=== PATIENT | male | born 1930 | race Hispanic/Latino ===

== ENCOUNTER 2017-10-10 11:04 | Inpatient (IN) | payer OTHER, MEDICARE ==
[2017-10-08 15:44] LABS: ABSOLUTE BASOPHIL COUNT 0 /CUMM (0.0-0.2); ABSOLUTE EOSINOPHIL COUNT 0.1 /CUMM (0.0-0.7); ABSOLUTE GRANULOCYTE CT 3.8 /CUMM (1.4-6.5); ABSOLUTE LYMPH COUNT 2.1 /CUMM (1.2-3.4); ABSOLUTE MONOCYTE COUNT 0.7 /CUMM (0.10-0.60); BASOPHIL % 0.3 % (0.0-2.0); EOSINOPHIL % 1.4 % (0-5); GRANULOCYTE % 56.9 % (42.2-75.2); HEMATOCRIT 27.9 % (42-52); MEAN CORPUSCULAR HGB 21.7 PG (27.0-31.0); MEAN CORPUSCULAR VOLUME 70.1 FL (80.0-94.0); MEAN PLATELET VOLUME 10.8 FL (7.4-10.4); PLATELET COUNT 251 /CUMM (130-400); RBC DISTRIBUTION WIDTH 18.1 % (11.5-14.5); RED BLOOD CELL CT 3.98 /CUMM (4.70-6.10); WHITE BLOOD CELL COUNT 6.7 /CUMM (4.8-10.8)
[~2017-10-10] VITALS: Ht 175.3 cm; Wt 100.9 kg
[~2017-10-10 11:04] MED LIST: CIPRO250 M1 PO; CLOPIDOGREL75 MG PO; DIOVAN HCT 12.51 TAB PO; DIOVAN HCT 25 M1 TAB PO; GLIMEPIRIDE4 MG PO; GLUCOPHAGE1000 M1 PO; HYDROCODONE/ACE1 TA1 PO; NAPROSYN375 MG PO; NORVASC 5MG TAB5 MG PO; PRAVASTATIN SOD40 MG PO; PYRIDIUM200 M1 PO; TAMSULOSIN HYD0.4 MG PO; VALSART/HCTZ TAB 160
--- NOTE | 2017-10-10 12:13 | ED GENERAL ADULT ---
History of Present Illness General Chief Complaint: General Adult Stated Complaint: PER RUDOLPH,"DR SAID BRING HIM IN" Source: patient, family Exam Limitations: language barrier Vital Signs & Intake/Output Vital Signs & Intake/Output Vital Signs Date Time Temp Pulse Resp B/P B/P Pulse O2 O2 Flow FiO2 Mean Ox Delivery Rate 10/10 1327 98.2 57 18 144/62 94 Room Air 10/10 1111 96.2 79 18 155/62 96 Room Air Allergies Coded Allergies: NO KNOWN ALLERGIES (10/10/13) Reconcile Medications Amlodipine Besylate 5 MG TABLET 1 TAB PO DAILY BP (Reported) Clopidogrel Bisulfate (Clopidogrel) 75 MG TABLET 1 TAB PO DAILY BLOOD THINNER (Reported) Gabapentin 100 MG CAPSULE 1 CAP PO QPM NERVE PAIN (Reported) Glimepiride 4 MG TABLET 1 TAB PO BID DM (Reported) Metformin HCl (Glucophage) 1,000 MG TABLET 1 TAB PO BID DM (Reported) Metoprolol Succinate 50 MG TAB.ER.24H 1 TAB PO DAILY HEART/BP (Reported) Rosuvastatin Calcium (Crestor) 10 MG TABLET 1 TAB PO DAILY CHOLESTEROL ( Reported) Tamsulosin HCl 0.4 MG CAP.ER.24H 1 CAP PO DAILY PROSTATE (Reported) Valsartan/Hydrochlorothiazide (Valsartan-Hctz 160-25 MG Tab) 160 MG-25 MG TABLET 1 TAB PO DAILY BP (Reported) Triage Note: PT TO ER SENT IN BY PCP FOR ?ROBERTH NEEDING TRANSFUSION. HX OF ANEMIA. PT INTERMITTENTLY SYMPTOMATIC, DIZZINESS/WEAKNESS/FATIGUE. PT APPEARS PALE. DENIES BLOOD IN VOMIT/STOOL. TAKES PLAVIX/ASA DAILY. PT MEXICAN SPEAKERS, DAUGHTERS TO TRANSLATE. Triage Nurses Notes Reviewed? yes Onset: Gradual Duration: week(s):, intermittent Timing: recent history Injury Environment: home Severity: mild, moderate No Modifying Factors: none HPI: 86-year-old male past medical history of hypertension, AAA, hyperlipidemia, insulin-dependent diabetes, coronary artery disease, iron deficiency anemia presents for evaluation of anemia. Patient is Peruvian-speaking daughters translate. Patient reports that he has had intermittent episodes of shortness of breath dizziness and weakness over the past several weeks. He had blood work done with his primary care doctor 2 days ago which showed a DROP IN his hemoglobin. He denies any chest pain, abdominal pain, nausea vomiting diarrhea, bright blood per rectum, melena. He does take aspirin and Plavix for coronary artery disease. No anticoagulants. He had a colonoscopy done 20+ years ago. He has never required a transfusion in the past. (Jj Duarte) Past History Travel History Traveled to [place] past 21 day No Medical History Any Pertinent Medical History? 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 sudden in 70s.). Hx Contributory? No (Jj Duarte) Review of Systems Review of Systems Constitutional: Reports: malaise, weakness. EENTM: Reports: no symptoms. Respiratory: Reports: short of breath. Cardiovascular: Reports: no symptoms. GI: Reports: no symptoms. Genitourinary: Reports: no symptoms. Musculoskeletal: Reports: no symptoms. Skin: Reports: no symptoms. Neurological/Psychological: Reports: see HPI (DIZZY). Hematologic/Endocrine: Reports: no symptoms. Immunologic/Allergic: Reports: no symptoms. All Other Systems: Reviewed and Negative (Jj Duarte) Physical Exam Physical Exam General Appearance: well developed/nourished, no apparent distress, alert, awake Head: atraumatic, normal appearance Eyes: Bilateral: PERRL, EOMI, pale conjunctivae. Ears, Nose, Throat: normal ENT inspection, hearing grossly normal, pale buccal mucosa Neck: normal inspection, supple, full range of motion, no JVD or carotid bruits Respiratory: normal breath sounds, chest non-tender, no respiratory distress, lungs clear Cardiovascular: regular rate/rhythm, normal peripheral pulses Peripheral Pulses: 2+ radial (R), 2+ radial (L) Gastrointestinal: normal bowel sounds, soft, non-tender, no organomegaly Rectal: normal rectal tone, heme positive stool, hemorrhoids (EXTERNAL ), light brown stool heme positive Back: normal inspection, normal range of motion, no vertebral tenderness Extremities: normal inspection, normal range of motion, no edema Neurologic/Psych: no motor/sensory deficits, awake, alert, oriented x 3, normal gait Skin: intact, normal color, warm/dry Lymphatic: no anterior cervical demian Core Measures ACS in differential dx? No CVA/TIA Diagnosis: No Sepsis Present: No Sepsis Focused Exam Completed? No (Lux GREGORIO,Jj) Progress Differential Diagnoses I considered the following diagnoses in my evaluation of the patient: [Iron deficiency anemia, GI bleeding, electrolyte of normality, acute coronary syndrome, orthostatic hypotension] Plan of Care: Orders Procedure Date/time Status Regular Diet 10/10 D Active Patient Data 10/10 1612 Active OXYGEN SETUP (GEN) 10/10 1352 Active Saline Lock 10/10 1352 Active Admit to inpatient 10/10 1352 Active Vital Signs 10/10 135 Active Activity/Ambulation 10/10 135 Active Code Status 10/10 1352 Active MISTAKE 10/10 1127 Active URINALYSIS 10/10 112 Complete TROPONIN LEVEL 10/10 1126 Complete PARTIAL THROMBOPLASTIN TIME 10/10 112 Complete PROTHROMBIN TIME 10/10 112 Complete COMPREHENSIVE METABOLIC PANEL 10/10 112 Complete CBC WITHOUT DIFFERENTIAL 10/10 1126 Complete EKG 10/10 112 Active TYPE & SCREEN (NOT X-MATCH) 10/10 112 Complete Laboratory Tests 10/10/17 1255: Urine Color YEL, Urine Clarity CLEAR, Urine pH 6.0, Ur Specific Organ 1.025, Urine Protein NEG, Urine Ketones NEG, Urine Nitrite NEG, Urine Bilirubin NEG, Urine Urobilinogen 0.2, Ur Leukocyte Esterase NEG, Ur Microscopic EXAM NOT REQUIRED, Urine Hemoglobin NEG, Urine Glucose NEG 10/10/17 1202: Anion Gap 11, Estimated GFR > 60, BUN/Creatinine Ratio 21.0, Glucose 183 H, Calcium 9.7, Total Bilirubin 0.3, AST 16 L, ALT 20 L, Alkaline Phosphatase 74, Troponin I < 0.01, Total Protein 6.3, Albumin 3.7, Globulin 2.6, Albumin/ Globulin Ratio 1.4, PT 13.4 H, INR 1.23 H, APTT 30, CBC w Diff NO MAN DIFF REQ , RBC 3.91 L, MCV 69.9 L, MCH 21.6 L, MCHC 30.8 L, RDW 17.8 H, MPV 10.0, Gran % 61.0, Lymphocytes % 27.0, Monocytes % 10.2 H, Eosinophils % 1.5, Basophils % 0.3, Absolute Granulocytes 3.2, Absolute Lymphocytes 1.4, Absolute Monocytes 0.5, Absolute Eosinophils 0.1, Absolute Basophils 0 Patient seen and evaluated. He was sent in for evaluation of weakness dizziness and shortness of breath. He also had a drop in his hemoglobin. In May 2017 he was running in the 11s his hemoglobin. Bloodwork done 2 days ago showed a hemoglobin of 8.6. Rectal exam is positive for light brown stool heme positive. Patient's family reports he has a history of AAA that has not been followed in several years. We'll check a CTA of the chest and pelvis. Patient denies any chest pain but does report some intermittent shortness of breath during activity. Blood work today shows a similar hemoglobin at 8.6 today. BUN is also mildly elevated at 21. Protonix ordered. Remaining blood work does not show any acute findings. EKG today shows a left bundle branch block that appears to be new. It is not in any of the documented cardiology notes her previous EKGs. According to family patient sees cardiology Dr. Campbell. Spoke with Dr. Whitten from GI. She recommends trending H/H, medicine/cardiology clearance before colonoscopy. No transfusion at this time. CTA is still pending. Patient will require admission to the hospital. Case discussed with Dr. Shetty and he agrees. 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 There is also some evidence of bronchitis. No focal consolidation patient is on have a white count he denies coughing. Patient will be admitted to the hospital for further evaluation and treatment. He will require telemetry monitoring, cardiology consult, serial labs, serial EKGs, GI consult, colonoscopy/endoscopy. Diagnostic Imaging: Viewed by Me: CT Scan. Discussed w/RAD: CT Scan. Radiology Impression: PATIENT: JACKIE ALLISON PRESENT AGE: 86 PATIENT ACCOUNT NO: [id number] : 31 LOCATION: [facility] ORDERING PHYSICIAN: Jj GREGORIO SERVICE DATE: 10/10/175963 EXAM TYPE: CAT - CT ABD & PELVIS ANGIOGRAM; CTA CHEST-AORTIC DISSECTION EXAMINATION: CT CHEST WITH CONTRAST CT ABDOMEN AND PELVIS WITH CONTRAST CLINICAL INFORMATION: Weakness and shortness of breath. History of abdominal aorta aneurysm. Acute drop in hematocrit level. COMPARISON: None. TECHNIQUE: Multidetector CT imaging examination of the chest was performed without intravenous contrast. Then, MDCT imaging was repeated in the arterial phase of intravenous administration of 95 mL of Optiray 320 nonionic contrast material. The post contrast arterial phase images were obtained through the chest, abdomen and pelvis. Multiplanar two- dimensional images were generated and reviewed. Also, axial maximum intensity projection images were reviewed. Note that postprocessed three-dimensional imaging was not performed. DLP: 1461 mGy-cm FINDINGS: CHEST - LUNGS and PLEURA: A punctate nodule in the right upper lobe is likely calcified (image 184, series 4). Small, calcified granulomas are present in the right and left lower lobe, as well. No suspicious lung nodule, mass, consolidation or pleural effusion. Bronchial wall thickening in both lungs is most conspicuous in lower lobes. There are linear, streaky, hazy opacities of atelectasis in lower lobes. No pneumothorax or pleural effusion. CARDIOVASCULAR STRUCTURES: Mild cardiomegaly. Atherosclerotic ectasia of coronary arteries and stent of left anterior descending coronary artery. No pericardial effusion. Pulmonary artery trunk is 3.5 cm diameter. No embolic filling defects within the central vessels. Atherosclerotic calcification of the thoracic aorta without acute intramural hematoma or dissection. The aortic root measures 4 cm diameter and the sinotubular junction measures 3.8 cm diameter. At the level of the right pulmonary artery, the dilated descending aorta measures 4.6 cm AP and 4.9 cm transverse. There is a bovine configuration of the aortic arch. Distal to the takeoff of the left subclavian artery, the aortic arch is 3.1 cm diameter. The proximal and distal descending aorta measure 3.2 cm and 3 cm short axis diameter , respectively. MEDIASTINUM: No mediastinal mass. The esophagus is unremarkable. Thyroid gland is slightly heterogeneous. No pneumomediastinum. LYMPHATICS: No pathologic sized axillary, hilar or mediastinal lymph nodes. CHEST WALL/BONES: No aggressive osseous lesions in the thorax. Thoracic vertebra have well preserved height and alignment. ABDOMEN AND PELVIS - HEPATOBILIARY: Liver has normal size, contour and attenuation. Cholelithiasis. No intrahepatic or extrahepatic bile duct dilatation. PANCREAS: Unremarkable. SPLEEN: Unremarkable. ADRENAL GLANDS: Unremarkable. KIDNEYS, URETERS, BLADDER: Multiple bilateral renal cortical cysts, largest on the left measuring up to 4.7 cm maximum dimension and largest on the right measuring up to 4.1 cm maximum dimension. No solid renal mass. No nephrolithiasis or hydroureteronephrosis. Urinary bladder is moderately distended and has normal wall thickness. No bladder calculi. GI TRACT AND PERITONEUM: Stomach is unremarkable. Bowel loops are normal in caliber. No evidence of acute inflammation or obstruction along the gastrointestinal tract. No ascites or pneumoperitoneum. ABDOMINAL WALL: No abdominal wall mass or hernia. There is hyperdense tissue stranding deep to the distal left rectus abdominis muscle, terminating superior to the level of the pubic bone, consistent with acute hemorrhage. This area of mild hemorrhage measures up to 1.4 cm AP. No evidence of active contrast extravasation in this area. The left inferior epigastric artery is unremarkable. VASCULAR: There is atherosclerotic calcification of the abdominal aorta without abdominal aorta aneurysm or dissection. The celiac trunk and its branches are widely patent. Mild atherosclerosis of the SMA without stenosis or occlusion. Also, mild atherosclerosis of renal arteries without significant luminal narrowing. The inferior mesenteric artery is patent. There is atherosclerotic calcification of common, external and internal iliac arteries. Atherosclerotic plaque produces irregular, [id number] stenosis of the internal iliac vessels. The external iliac and visualized femoral arteries are widely patent. No retroperitoneal hematoma. LYMPH NODES: No pathologic sized lymph nodes in the abdomen or pelvis. PELVIC VISCERA: Prostate gland is mildly enlarged; it measures 3.6 cm AP and 4.8 cm transverse. No pelvic free fluid. OSSEOUS STRUCTURES: There appears to be an old compression fracture of the L2 vertebral body with depression of its superior endplate and approximately 35-40% anterior height loss. There is is a bridging osteophyte anterior to L1-L2. Lumbar vertebra have normal alignment. At L5-S1, there is moderate loss of disc height, vacuum disc phenomenon, disc bulge , vertebral osteophytosis and facet osteoarthritis with moderate bilateral foraminal stenosis. No acute fractures are identified within the spine, pelvis or proximal femurs. No aggressive osseous lesions.. IMPRESSION: 1. Atherosclerotic disease of the coronary arteries and aorta. The ascending thoracic aorta is dilated up to 4.9 cm. No acute intramural hematoma or dissection. No evidence of abdominal aortic aneurysm. 2. Bronchial wall thickening in both lungs is most conspicuous in the lower lobes, and there there are scattered linear, hazy opacities of atelectasis. Correlate for signs/ symptoms of active airway inflammation (i.e. bronchitis or asthma). No evidence of pneumonia. 3. Small amount of hyperdense hemorrhage is seen deep to the distal left rectus abdominis muscle. 4. Cholelithiasis. 5. Old compression fracture of the L2 vertebral body. DICTATED BY: Hunter Machado MD DATE/TIME DICTATED:10/10/171501 ADVERTISING INTERN:FRANNY DATE/TIME TRANSCRIBED:1501 CONFIDENTIAL, DO NOT COPY WITHOUT APPROPRIATE AUTHORIZATION. Initial ED EKG: normal sinus rhythm, LBBB, 1ST DEGREE AV BLOCK (Jj Duarte) Departure Departure Disposition: STILL A PATIENT Condition: Stable Clinical Impression Primary Impression: Symptomatic anemia Secondary Impressions: GI bleeding Qualifiers: GI bleed type/associated pathology: unspecified gastrointestinal hemorrhage type Qualified Code: K92.2 - Gastrointestinal hemorrhage, unspecified Left bundle branch block Referrals: Pranay Samaniego MD (PCP/Family) Departure Forms: Customer Survey General Discharge Information Admission Note Spoke With: Chauncey Hou MD Documentation of Exam: Documentation of any treatments & extenuating circumstances including Concerns Regarding Discharge (functional status, medication knowledge or non-compliance, living conditions, etc.) that warrant an admission rather than observation: [ Serial labs, serial EKGs, GI consult, colonoscopy, medication adjustment, cardiology consult, telemetry,] (Jj Duarte) PA/SKIN DIVING TEACHER Co-Sign Statement Statement: ED Attending supervision documentation- x I saw and evaluated the patient. I have also reviewed all the pertinent lab results and diagnostic results. I agree with the findings and the plan of care as documented in the PA's/SKIN DIVING TEACHER's documentation. Dizzy, weak with new LBBB, heme + stool and symptomatic anemia. [] I have reviewed the ED Record and agree with the PA's/SKIN DIVING TEACHER's documentation. [] Additions or exceptions (if any) to the PAs/SKIN DIVING TEACHER's note and plan are summarized below: [] (Antoine Shetty MD) Critical Care Note Critical Care Note Critical Care Time: non-applicable (Jj Duarte) ED Attending Observation Initial Observation Note: I have seen and personally examined JACKIE ALLISON on 10/10/17 at 1244. I agree with the current emergency department documentation. The disposition (admission or discharge) is uncertain at this time, he needs a period of observation for the following reason(s): The ED Nurse caring for this patient has been personally informed as to what the patient is being observed for. (Lxu GREGORIO,Jj)
[2017-10-10 12:31] LABS: ABSOLUTE BASOPHIL COUNT 0 /CUMM (0.0-0.2); ABSOLUTE EOSINOPHIL COUNT 0.1 /CUMM (0.0-0.7); ABSOLUTE GRANULOCYTE CT 3.2 /CUMM (1.4-6.5); ABSOLUTE LYMPH COUNT 1.4 /CUMM (1.2-3.4); ABSOLUTE MONOCYTE COUNT 0.5 /CUMM (0.10-0.60); BASOPHIL % 0.3 % (0.0-2.0); EOSINOPHIL % 1.5 % (0-5); HEMATOCRIT 27.4 % (42-52); MEAN CORPUSCULAR HGB 21.6 PG (27.0-31.0); MEAN CORPUSCULAR HGB CONC 30.8 G/DL (33.0-37.0); MEAN CORPUSCULAR VOLUME 69.9 FL (80.0-94.0); PLATELET COUNT 243 /CUMM (130-400); RBC DISTRIBUTION WIDTH 17.8 % (11.5-14.5); RED BLOOD CELL CT 3.91 /CUMM (4.70-6.10); WHITE BLOOD CELL COUNT 5.3 /CUMM (4.8-10.8)
[2017-10-10 12:33] LABS: PT 13.4 SEC (9.4-12.5); PTT 30 SEC (25-37)
[2017-10-10] MEDS ORDERED: GLIMEPIRIDE4 M1 PO (14:28)
[2017-10-10] MEDS ORDERED: CLOPIDOGREL75 M1 PO (14:28)
[2017-10-10] MEDS ORDERED: AMLODIPINE BESYL5 M1 PO (14:28)
[2017-10-10] MEDS ORDERED: GABAPENTIN100 M2 PO (14:29)
[2017-10-10] MEDS ORDERED: TAMSULOSIN HCL0.4 M1 PO (14:29)
[2017-10-10] MEDS ORDERED: METOPROLOL SUCC50 M2 PO (14:30)
[2017-10-10] MEDS ORDERED: CRESTOR10 M1 PO (14:30)
[2017-10-10] MEDS ORDERED: VALSARTAN-HCTZ1 EAC2 PO (14:30)
--- NOTE | 2017-10-10 15:36 | CT SCAN REPORT ---
EXAMINATION: CT CHEST WITH CONTRAST CT ABDOMEN AND PELVIS WITH CONTRAST CLINICAL INFORMATION: Weakness and shortness of breath. History of abdominal aorta aneurysm. Acute drop in hematocrit level. COMPARISON: None. TECHNIQUE: Multidetector CT imaging examination of the chest was performed without intravenous contrast. Then, MDCT imaging was repeated in the arterial phase of intravenous administration of 95 mL of Optiray 320 nonionic contrast material. The post contrast arterial phase images were obtained through the chest, abdomen and pelvis. Multiplanar two-dimensional images were generated and reviewed. Also, axial maximum intensity projection images were reviewed. Note that postprocessed three-dimensional imaging was not performed. DLP: 1461 mGy-cm FINDINGS: CHEST - LUNGS and PLEURA: A punctate nodule in the right upper lobe is likely calcified (image 184, series 4). Small, calcified granulomas are present in the right and left lower lobe, as well. No suspicious lung nodule, mass, consolidation or pleural effusion. Bronchial wall thickening in both lungs is most conspicuous in lower lobes. There are linear, streaky, hazy opacities of atelectasis in lower lobes. No pneumothorax or pleural effusion. CARDIOVASCULAR STRUCTURES: Mild cardiomegaly. Atherosclerotic ectasia of coronary arteries and stent of left anterior descending coronary artery. No pericardial effusion. Pulmonary artery trunk is 3.5 cm diameter. No embolic filling defects within the central vessels. Atherosclerotic calcification of the thoracic aorta without acute intramural hematoma or dissection. The aortic root measures 4 cm diameter and the sinotubular junction measures 3.8 cm diameter. At the level of the right pulmonary artery, the dilated descending aorta measures 4.6 cm AP and 4.9 cm transverse. There is a bovine configuration of the aortic arch. Distal to the takeoff of the left subclavian artery, the aortic arch is 3.1 cm diameter. The proximal and distal descending aorta measure 3.2 cm and 3 cm short axis diameter, respectively. MEDIASTINUM: No mediastinal mass. The esophagus is unremarkable. Thyroid gland is slightly heterogeneous. No pneumomediastinum. LYMPHATICS: No pathologic sized axillary, hilar or mediastinal lymph nodes. CHEST WALL/BONES: No aggressive osseous lesions in the thorax. Thoracic vertebra have well preserved height and alignment. ABDOMEN AND PELVIS - HEPATOBILIARY: Liver has normal size, contour and attenuation. Cholelithiasis. No intrahepatic or extrahepatic bile duct dilatation. PANCREAS: Unremarkable. SPLEEN: Unremarkable. ADRENAL GLANDS: Unremarkable. KIDNEYS, URETERS, BLADDER: Multiple bilateral renal cortical cysts, largest on the left measuring up to 4.7 cm maximum dimension and largest on the right measuring up to 4.1 cm maximum dimension. No solid renal mass. No nephrolithiasis or hydroureteronephrosis. Urinary bladder is moderately distended and has normal wall thickness. No bladder calculi. GI TRACT AND PERITONEUM: Stomach is unremarkable. Bowel loops are normal in caliber. No evidence of acute inflammation or obstruction along the gastrointestinal tract. No ascites or pneumoperitoneum. ABDOMINAL WALL: No abdominal wall mass or hernia. There is hyperdense tissue stranding deep to the distal left rectus abdominis muscle, terminating superior to the level of the pubic bone, consistent with acute hemorrhage. This area of mild hemorrhage measures up to 1.4 cm AP. No evidence of active contrast extravasation in this area. The left inferior epigastric artery is unremarkable. VASCULAR: There is atherosclerotic calcification of the abdominal aorta without abdominal aorta aneurysm or dissection. The celiac trunk and its branches are widely patent. Mild atherosclerosis of the SMA without stenosis or occlusion. Also, mild atherosclerosis of renal arteries without significant luminal narrowing. The inferior mesenteric artery is patent. There is atherosclerotic calcification of common, external and internal iliac arteries. Atherosclerotic plaque produces irregular, [id number]-[id number]-kvngwush stenosis of the internal iliac vessels. The external iliac and visualized femoral arteries are widely patent. No retroperitoneal hematoma. LYMPH NODES: No pathologic sized lymph nodes in the abdomen or pelvis. PELVIC VISCERA: Prostate gland is mildly enlarged; it measures 3.6 cm AP and 4.8 cm transverse. No pelvic free fluid. OSSEOUS STRUCTURES: There appears to be an old compression fracture of the L2 vertebral body with depression of its superior endplate and approximately 35-40% anterior height loss. There is is a bridging osteophyte anterior to L1-L2. Lumbar vertebra have normal alignment. At L5-S1, there is moderate loss of disc height, vacuum disc phenomenon, disc bulge, vertebral osteophytosis and facet osteoarthritis with moderate bilateral foraminal stenosis. No acute fractures are identified within the spine, pelvis or proximal femurs. No aggressive osseous lesions.. IMPRESSION: 1. Atherosclerotic disease of the coronary arteries and aorta. The ascending thoracic aorta is dilated up to 4.9 cm. No acute intramural hematoma or dissection. No evidence of abdominal aortic aneurysm. 2. Bronchial wall thickening in both lungs is most conspicuous in the lower lobes, and there there are scattered linear, hazy opacities of atelectasis. Correlate for signs/symptoms of active airway inflammation (i.e. bronchitis or asthma). No evidence of pneumonia. 3. Small amount of hyperdense hemorrhage is seen deep to the distal left rectus abdominis muscle. 4. Cholelithiasis. 5. Old compression fracture of the L2 vertebral body.
--- NOTE | 2017-10-10 16:28 | History & Physical ---
Francine Crane 10/10/17 1628: General Information and HPI MD Statement: I have seen and personally examined JACKIE ALLISON and documented this H&P. The patient is a 86 year old M who presented with a patient stated chief complaint of [Sent by PCP for Low H&H]. Source of Information: patient, family, old records Exam Limitations: no limitations History of Present Illness: Mr.Garcia David is an 86 yo man Vietnamese speaker with PMHx. of hypertension, AAA, hyperlipidemia, insulin-dependent diabetes mellitus, iron deficiency anemia , coronary artery disease status post stent on 2003, ballon angioplasty 2005, and another stent at 2016 at [facility] presented to emergency department per his primary care physician request who called him today for the result of blood work done on which shows drop in his H&H. Most history obtained from family who were at bedside translating. Patient saw his primary care physician last for a complain of worsening dizziness, blurry vision over the last 6 days, per family his symptoms is on and off over the last few months but it's getting worse in the last 6 days so they decided to see his primary care physician on . He also complained of shortness of breath on exertion sometimes associated with chest tightness, however he denies any tightness during the encounter. He described dizziness as he feels that he is going to pass out, he also reports that he has some ear ringing, and chronic headache for years, which is pressure in nature. Patient reports 5 pound weight loss over the last 3 months , he denies any active bleeding, no changes in his urinary or bowel habits, he denies black stool.; Of note: Patient seen by his inventory management specialist Dr. Campbell recently (on August )and he was told that he looks stable), per daughter he had stress test and echocardiogram done earlier this year on June with no abnormality detected Allergies/Medications Allergies: Coded Allergies: NO KNOWN ALLERGIES (10/10/13) Home Med list Amlodipine Besylate 5 MG TABLET 1 TAB PO DAILY BP (Reported) Ferrous Sulfate 325 MG (65 MG IRON) TABLET. 325 MG PO BID ANEMIA DO NOT START TAKING THIS MEDICATION UNTIL Thursday10/17/2017 (AFTER THE COLONOSCOPY). Gabapentin 100 MG CAPSULE 1 CAP PO QPM NERVE PAIN (Reported) Glimepiride 4 MG TABLET 1 TAB PO BID DM (Reported) Metformin HCl (Glucophage) 1,000 MG TABLET 1 TAB PO BID DM (Reported) Metoprolol Succinate 50 MG TAB.ER.24H 1 TAB PO DAILY HEART/BP (Reported) Omeprazole 40 MG CAPSULE.DR 1 CAP PO DAILY GASTRIC PROTECTION Peg 3350/Na Sulf,Bicarb,Cl/KCl (Golytely Solution) 236-22.74G SOLN.RECON 1 UNIT PO ONCE COLONOSCOPY PREP Do not eat any solid food after Thursday at midnight. Start colonscopy prep on morning. Please refer to instructions given at hospital. 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 sudden in 70s.). Psychosocial History Smoking Status: Never Smoked ETOH Use: denies use Illicit Drug Use: denies illicit drug use Functional Ability ADLs Independent: dressing, eating, toileting, bathing. Ambulation: independent Review of Systems Review of Systems Constitutional: Reports: no symptoms. EENTM: Reports: blurred vision. Cardiovascular: Reports: no symptoms. Respiratory: Reports: short of breath. GI: Reports: no symptoms. Genitourinary: Reports: no symptoms. Musculoskeletal: Reports: no symptoms. Skin: Reports: no symptoms. Neurological/Psychological: Reports: see HPI. All Other Systems: Reviewed and Negative Exam & Diagnostic Data Last 24 Hrs of Vital Signs/I&O Vital Signs Date Time Temp Pulse Resp B/P B/P Pulse O2 O2 Flow FiO2 Mean Ox Delivery Rate 10/10 1327 98.2 57 18 144/62 94 Room Air 10/10 1111 96.2 79 18 155/62 96 Room Air Intake & Output 10/10 1600 10/10 0800 10/10 0000 Intake Total Output Total Balance Patient 210 lb Weight Weight Reported by Patient Measurement Method Physical Exam General Appearance Alert, Oriented X3, Cooperative, No Acute Distress, looks pale Skin No Rashes, No Breakdown, No Significant Lesion HEENT Atraumatic, PERRLA, EOMI, Mucous Membr. moist/pink, he looks pale Neck Supple, No JVD Lymphatic Axillary nl, Cervical nl Cardiovascular Regular Rate, Normal S1, Normal S2, No Murmurs Lungs Clear to Auscultation, Normal Air Movement Abdomen Normal Bowel Sounds, Soft, No Tenderness Extremities Normal Pulses, +1 bilateral lower extremity edema Vascular Normal Pulses, Pulses Symmetrical Last 24 Hrs of Labs/Sudhakar: Laboratory Tests 10/10/17 1255: Urine Color YEL, Urine Clarity CLEAR, Urine pH 6.0, Ur Specific [place] 1.025, Urine Protein NEG, Urine Ketones NEG, Urine Nitrite NEG, Urine Bilirubin NEG, Urine Urobilinogen 0.2, Ur Leukocyte Esterase NEG, Ur Microscopic EXAM NOT REQUIRED, Urine Hemoglobin NEG, Urine Glucose NEG 10/10/17 1202: Anion Gap 11, Estimated GFR > 60, BUN/Creatinine Ratio 21.0, Glucose 183 H, Calcium 9.7, Total Bilirubin 0.3, AST 16 L, ALT 20 L, Alkaline Phosphatase 74, Troponin I < 0.01, Total Protein 6.3, Albumin 3.7, Globulin 2.6, Albumin/ Globulin Ratio 1.4, PT 13.4 H, INR 1.23 H, APTT 30, CBC w Diff NO MAN DIFF REQ , RBC 3.91 L, MCV 69.9 L, MCH 21.6 L, MCHC 30.8 L, RDW 17.8 H, MPV 10.0, Gran % 61.0, Lymphocytes % 27.0, Monocytes % 10.2 H, Eosinophils % 1.5, Basophils % 0.3, Absolute Granulocytes 3.2, Absolute Lymphocytes 1.4, Absolute Monocytes 0.5, Absolute Eosinophils 0.1, Absolute Basophils 0 Diagnostic Data EKG Results Sinus rhythm, 56, ABC, first-degree AV block, left bundle branch block, QTC 452 Other Results Chest CTA: IMPRESSION: 1. Atherosclerotic disease of the coronary arteries and aorta. The ascending thoracic aorta is dilated up to 4.9 cm. No acute intramural hematoma or dissection. No evidence of abdominal aortic aneurysm. 2. Bronchial wall thickening in both lungs is most conspicuous in the lower lobes, and there there are scattered linear, hazy opacities of atelectasis. Correlate for signs/symptoms of active airway inflammation (i.e. bronchitis or asthma). No evidence of pneumonia. 3. Small amount of hyperdense hemorrhage is seen deep to the distal left rectus abdominis muscle. 4. Cholelithiasis. 5. Old compression fracture of the L2 vertebral body. Abdomen /pelvis CTA: IMPRESSION: 1. Atherosclerotic disease of the coronary arteries and aorta. The ascending thoracic aorta is dilated up to 4.9 cm. No acute intramural hematoma or dissection. No evidence of abdominal aortic aneurysm. 2. Bronchial wall thickening in both lungs is most conspicuous in the lower lobes, and there there are scattered linear, hazy opacities of atelectasis. Correlate for signs/symptoms of active airway inflammation (i.e. bronchitis or asthma). No evidence of pneumonia. 3. Small amount of hyperdense hemorrhage is seen deep to the distal left rectus abdominis muscle. 4. Cholelithiasis. 5. Old compression fracture of the L2 vertebral body. Assessment/Plan Assessment: Mr.Garcia David is an 86 yo man Vietnamese speaker with PMHx. of hypertension, AAA, hyperlipidemia, insulin-dependent diabetes mellitus, iron deficiency anemia , coronary artery disease status post stent on 2003, angiography 1 2005, and another stent at 2016 at [facility] presented to emergency department her his primary care physician request will call them today as he was found to have dropping in his H&H. Admitted to telemetry floor for microcytic anemia and new finding of left bundle branch block. Vitals, examination, labs, and imaging as above Assessment: #New left bundle branch block #Symptomatic microcytic anemia, (iron deficiency anemia) #History of coronary artery disease status post stenting #History of hypertension, hyperlipidemia #History of diabetes #Ascending aortic aneurysm 4.9 cm #Distal deep left rectus abdominis muscle hematoma Plan: * Patient admitted to telemetry floor * He denies any chest pain during my examination, looks comfortable, we'll continue to trend troponin and EKG given that he had shortness of breath with exertion. No sign or symptoms of CHF. * Cardiology consult with Dr. Campbell regarding EKG finding at am * GI consult placed with Dr. Ruiz regarding anemia, guaiac positive, for possible colonoscopy given that the patient has dropped and his H&H and he reports weight loss over the last 3 months, he also looks pale * General surgery consult placed for Dr. Phillips regarding left rectus abdominis muscle hematoma * Will repeat CBC at a.m. unless the patient became hemodynamically unstable order stat CBC * Will hold oral hypoglycemic agent and start the patient on insulin sliding scale * Accu-Chek 3 times a day before meals/at bedtime * Will check TSH, lipid panel, HbA1c * We'll continue his home medication of amlodipine 5 mg 1 tablet daily, Plavix 75 mg daily, aspirin 81 mg daily, Flomax 0.4 mg daily, metoprolol succinate 50 mg daily, rosuvastatin 10 mg daily, valsartan/hydrochlorothiazide 160/25 mg daily (or a substitute if it's not available at our pharmacy) * Heart healthy diet, keep him nothing by mouth after midnight for possible colonoscopy tomorrow DVT prophylaxis Alps Full code As Ranked By This Provider Problem List: 1. Left bundle branch block 2. GI bleeding Qualifiers GI bleed type/associated pathology: unspecified gastrointestinal hemorrhage type Qualified Code: K92.2 - Gastrointestinal hemorrhage, unspecified Core Measures/Misc (03/01) Acute Coronary Syndrome ACS Diagnosis: No Congestive Heart Failure Congestive Heart Failure Diagnosis No Cerebrovascular Accident CVA/TIA Diagnosis: No VTE (View Protocol) VTE Risk Factors Acute Medical Illness No Mechanical VTE Prophylaxis d/t N/A MechProphylax Ordered No VTE Pharm Prophylaxis d/t NA PharmProphylax ordered Sepsis (View protocol) Sepsis Present: No Chauncey Hou MD 10/10/17 2250: Attending MD Review Statement Attending Statement Attending MD Statement: examined this patient, discuss w/resident/PA/ROAD ROLLER OPERATOR HOT MIX, agreed w/resident/PA/ROAD ROLLER OPERATOR HOT MIX, discussed with nursing Attending Assessment/Plan: Mr. Domingo is a 86 y/o male with CAD - s/p stents, hypertension, AAA, hyperlipidemia, insulin-dependent diabetes mellitus, iron deficiency anemia presented for drop in Hb and Hct In the ER, patient was seen. Denied any specific complaints. Vital signs as mentioned above Assessment and Plan 1. Blood loss anemia - IV PPI, GI Consult, ALPS for DVT px. Hold ASA and Plavix.. Hb and Hct dropped to 8 from baseline of 12. Type and screen and Cross match 2. CAD - s/p stent in 2016 - recent stress test within the last 1 year was apparently normal But patient is apparently 325 mg of ASA and plavix 3. ?New LBBB - will need to be verified with previous records - patient's Contracts Law Professor is . If the LBBB is new - then will need a repeat ECHO. Patient does not report and CV symptoms. 4. Hypertension - Hold BP meds for SBP less than 110
[2017-10-10 20:05] VITALS: BP 170/108
[2017-10-10 21:41] VITALS: BP 164/58
[2017-10-10 22:12] VITALS: BP 160/114
[2017-10-10 23:11] VITALS: BP 160/60
[2017-10-11 07:00] VITALS: BP 120/66
--- NOTE | 2017-10-11 07:30 | Cons- General Surgery ---
General Information and HPI Consulting Request Date of Consult: 10/11/17 Requested By: Chauncey Hou MD Reason for Consult: rectus hematoma Source of Information: patient, old records Exam Limitations: language barrier History of Present Illness: 86 y/o male PMHx. of hypertension, AAA, hyperlipidemia, insulin-dependent diabetes mellitus, iron deficiency anemia, coronary artery disease was told to go to the ER yesterday for the evaluation of abnormal labs. He had a drop in his H/H. He had no complaints of weakness SOB or chest pain. He denied any abdominal pain, nuasea vomiting or diarrhea. He does have dizziness. Most history obtained from family and nursing staff. Patient saw his primary care physician last for a complain of worsening dizziness, blurry vision over the last 6 days, per family his symptoms is on and off over the last few months but it's getting worse in the last 6 days so they decided to see his primary care physician on . He also complained of shortness of breath on exertion sometimes associated with chest tightness. He has no chest pain or SOB now. He has no dizziness now but prior to this he described dizziness with standing. He denies any active bleeding, no changes in his urinary or bowel habits, he denies black stool. He denies any trauma to the abdomen. He is currently plavix and ASA at home. Allergies/Medications Allergies: Coded Allergies: NO KNOWN ALLERGIES (10/10/13) Home Med List: Amlodipine Besylate 5 MG TABLET 1 TAB PO DAILY BP (Reported) Clopidogrel Bisulfate (Clopidogrel) 75 MG TABLET 1 TAB PO DAILY BLOOD THINNER (Reported) Gabapentin 100 MG CAPSULE 1 CAP PO QPM NERVE PAIN (Reported) Glimepiride 4 MG TABLET 1 TAB PO BID DM (Reported) Metformin HCl (Glucophage) 1,000 MG TABLET 1 TAB PO BID DM (Reported) Metoprolol Succinate 50 MG TAB.ER.24H 1 TAB PO DAILY HEART/BP (Reported) Rosuvastatin Calcium (Crestor) 10 MG TABLET 1 TAB PO DAILY CHOLESTEROL ( Reported) Tamsulosin HCl 0.4 MG CAP.ER.24H 1 CAP PO DAILY PROSTATE (Reported) Valsartan/Hydrochlorothiazide (Valsartan-Hctz 160-25 MG Tab) 160 MG-25 MG TABLET 1 TAB PO DAILY BP (Reported) Past History Medical History Blood Transfusion Hx: No Neurological: NONE EENT: NONE Cardiovascular: CAD, hypertension, CARDIAC STENTS Respiratory: NONE Gastrointestinal: NONE Hepatic: NONE Renal: nephrolithiasis Musculoskeletal: NONE Psychiatric: NONE Endocrine: diabetes Blood Disorders: anemia Cancer(s): NONE 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 sudden in 70s.). Psychosocial History Where Do You Live? Home Smoking Status: Never Smoked ETOH Use: denies use Illicit Drug Use: denies illicit drug use Functional Ability ADLs Independent: dressing, eating, toileting, bathing. Ambulation: independent Review of Systems Review of Systems: Constitutional: No chills no fever pos weakness HEENT: pos blurred vision on occasion, no throat pain nasal pain CV: denies chest pain edema orthopnea, possible syncopal episode with standing, no peripheral edema Respiratory: No cough hemoptysis, pos shortness of breath with exertion no wheeze GI: No abdominal pain bloating constipation or diarrhea or bloody stools no vomiting Musculoskeletal: No neck pain back pain or joint swelling Skin: No recent acute changes in skin Neurological: pos dizziness -positional, pos weakness no acute mental status changes Hematologic: no history of blood dyscrasia to include PE DVT or bleeding disorder No reported reaction to general anesthetics No recent fevers fluids or infections Exam & Diagnostic Data Vital Signs and I&O Vital Signs Date Time Temp Pulse Resp B/P B/P Pulse O2 O2 Flow FiO2 Mean Ox Delivery Rate 10/11 0700 98.1 68 18 120/66 96 10/10 2311 160/60 10/11 2211 99.2 74 16 160/114 94 10/10 214 85 164/60 10/10 2141 164/58 10/10 2004 99.1 78 18 170/108 94 10/10 1933 98.1 77 18 139/63 93 Room Air 10/10 1327 98.2 57 18 144/62 94 Room Air 10/10 1111 96.2 79 18 155/62 96 Room Air Intake & Output 10/11 0800 10/11 0000 10/10 1600 10/10 0800 10/10 1600 Intake Total 100 100 Output Total 800 Balance 100 -700 Intake, Oral 100 100 Output, Urine 800 Patient 223 lb 210 lb Weight Weight Bed scale Reported by Patient Measurement Method Patient is alert and oriented lying in bed without complaints he feels well and slept through the night. HEENT exam within normal limits Neck supple nontender with active range of motion Chest is clear to auscultation symmetric without rales rhonchi or wheeze Heart is regular rate rhythm without murmurs rubs gallops Abdomen is rounded but soft nontender in all 4 quadrants no signs of external trauma including ecchymosis or hematoma there is no guarding or rebound positive bowel sounds throughout last bowel movement was on the and it was normal for him, 2 days ago Bilateral lower extremities no edema no calf tenderness Physical Exam: Assessment and plan 86-year-old Guatemalan-speaking male presented to the emergency room on request from his primary care physician for routine lab work that showed worsening H&H. She has been symptomatic for dizziness, shortness of breath with exertion and orthostatic images when he is standing. While in the ER he had a CT angiogram of the chest and abdomen which showed a small distal deep left rectus abdominous hematoma. He is on Plavix at home for his coronary disease and prior stent placement back in 2003. He denied any trauma to his abdomen and he denies any symptoms of abdominal pain. He has been eating and drinking without difficulty and his bowel movements have been normal. Symptomatic anemia probably from GI losses as his stool is guaiac positive. Incidental finding on CAT scan of a small rectus abdominis hematoma. Would recommend serial H&H, PPI, hold blood thinner, guiac each stool and strict I's and O's with vital signs every 4 GI evaluation for possible colonoscopy We will continue to follow and repeat abdominal examination if abdominal symptoms occur we will likely repeat the CAT scan Admission Lab Results I reviewed the following labs: Laboratory Tests 10/11 10/10 10/10 0645 1915 1255 Chemistry Sodium Pending Potassium Pending Chloride Pending Carbon Dioxide Pending Anion Gap Pending BUN Pending Creatinine Pending BUN/Creatinine Ratio Pending Hemoglobin A1c Pending Troponin I (<0.11 ng/ml) < 0.01 Triglycerides Pending Cholesterol Pending LDL Cholesterol, Calc Pending HDL Cholesterol Pending Cholesterol/HDL Ratio Pending TSH &T3 &Free T4 Intrp Pending Hematology CBC w Diff Pending WBC Pending RBC Pending Hgb Pending Hct Pending MCV Pending MCH Pending MCHC Pending RDW Pending Plt Count Pending MPV Pending Urines Urine Color (YEL,AMB,STR) YEL Urine Clarity (CLEAR) CLEAR Urine pH (5.0 - 8.0) 6.0 Ur Specific [place] (1.001 - 1.035) 1.025 Urine Protein (NEG,<30 MG/DL) NEG Urine Ketones (NEG) NEG Urine Nitrite (NEG) NEG Urine Bilirubin (NEG) NEG Urine Urobilinogen (0.1 - 1.0 EU/dl) 0.2 Ur Leukocyte Esterase (NEG) NEG Ur Microscopic EXAM NOT REQUIRED Urine Hemoglobin (NEG) NEG Urine Glucose (N MG/DL) NEG 10/10 1202 Chemistry Sodium (137 - 145 mmol/L) 140 Potassium (3.5 - 5.1 mmol/L) 4.3 Chloride (98 - 107 mmol/L) 102 Carbon Dioxide (22 - 30 mmol/L) 27 Anion Gap (5 - 16) 11 BUN (9 - 20 mg/dL) 21 H Creatinine (0.7 - 1.2 mg/dL) 1.0 Estimated GFR (>60 ml/min) > 60 BUN/Creatinine Ratio (7 - 25 %) 21.0 Glucose (65 - 99 mg/dL) 183 H Calcium (8.4 - 10.2 mg/dL) 9.7 Total Bilirubin (0.2 - 1.3 mg/dL) 0.3 AST (17 - 59 U/L) 16 L ALT (21 - 72 U/L) 20 L Alkaline Phosphatase (< 127 U/L) 74 Troponin I (<0.11 ng/ml) < 0.01 Total Protein (6.3 - 8.2 g/dL) 6.3 Albumin (3.5 - 5.0 g/dL) 3.7 Globulin (1.9 - 4.2 gm/dL) 2.6 Albumin/Globulin Ratio (1.1 - 2.2 %) 1.4 Coagulation PT (9.4 - 12.5 SEC) 13.4 H INR (0.90 - 1.17) 1.23 H APTT (25 - 37 SEC) 30 Hematology CBC w Diff NO MAN DIFF REQ WBC (4.8 - 10.8 /CUMM) 5.3 RBC (4.70 - 6.10 /CUMM) 3.91 L Hgb (14.0 - 18.0 G/DL) 8.4 L Hct (42 - 52 %) 27.4 L MCV (80.0 - 94.0 FL) 69.9 L MCH (27.0 - 31.0 PG) 21.6 L MCHC (33.0 - 37.0 G/DL) 30.8 L RDW (11.5 - 14.5 %) 17.8 H Plt Count (130 - 400 /CUMM) 243 MPV (7.4 - 10.4 FL) 10.0 Gran % (42.2 - 75.2 %) 61.0 Lymphocytes % (20.5 - 51.1 %) 27.0 Monocytes % (1.7 - 9.3 %) 10.2 H Eosinophils % (0 - 5 %) 1.5 Basophils % (0.0 - 2.0 %) 0.3 Absolute Granulocytes (1.4 - 6.5 /CUMM) 3.2 Absolute Lymphocytes (1.2 - 3.4 /CUMM) 1.4 Absolute Monocytes (0.10 - 0.60 /CUMM) 0.5 Absolute Eosinophils (0.0 - 0.7 /CUMM) 0.1 Absolute Basophils (0.0 - 0.2 /CUMM) 0 CT IMPRESSION: 1. Atherosclerotic disease of the coronary arteries and aorta. The ascending thoracic aorta is dilated up to 4.9 cm. No acute intramural hematoma or dissection. No evidence of abdominal aortic aneurysm. 2. Bronchial wall thickening in both lungs is most conspicuous in the lower lobes, and there there are scattered linear, hazy opacities of atelectasis. Correlate for signs/symptoms of active airway inflammation (i.e. bronchitis or asthma). No evidence of pneumonia. 3. Small amount of hyperdense hemorrhage is seen deep to the distal left rectus abdominis muscle. 4. Cholelithiasis. 5. Old compression fracture of the L2 vertebral body. Assessment/Plan Assessment/Plan Symptomatic anemia most likely from GI loss Consult Acknowledgment - Thank you for your consult request.
[2017-10-11 07:50] LABS: ABSOLUTE BASOPHIL COUNT 0 /CUMM (0.0-0.2); ABSOLUTE EOSINOPHIL COUNT 0.1 /CUMM (0.0-0.7); ABSOLUTE GRANULOCYTE CT 3.5 /CUMM (1.4-6.5); ABSOLUTE LYMPH COUNT 1.7 /CUMM (1.2-3.4); ABSOLUTE MONOCYTE COUNT 0.7 /CUMM (0.10-0.60); BASOPHIL % 0.3 % (0.0-2.0); EOSINOPHIL % 2.5 % (0-5); GRANULOCYTE % 57.4 % (42.2-75.2); HEMATOCRIT 26.4 % (42-52); MEAN CORPUSCULAR HGB 21.8 PG (27.0-31.0); MEAN CORPUSCULAR HGB CONC 31.3 G/DL (33.0-37.0); MEAN CORPUSCULAR VOLUME 69.5 FL (80.0-94.0); MEAN PLATELET VOLUME 9.9 FL (7.4-10.4); PLATELET COUNT 232 /CUMM (130-400)
--- NOTE | 2017-10-11 08:40 | PN- Housestaff ---
Rui PACE,Jarett 10/11/17 0840: Subjective Follow-up For: symptomatic anemia GI bleed Tele-Events Since Last Visit: LBBB Subjective: no complaints Review of Systems Constitutional: Reports: see HPI. Objective Last 24 Hrs of Vital Signs/I&O Vital Signs Date Time Temp Pulse Resp B/P B/P Pulse O2 O2 Flow FiO2 Mean Ox Delivery Rate 10/11 1356 98.5 60 16 148/76 94 Room Air 10/11 0814 136/70 10/11 0814 136/70 10/11 0814 136/70 10/11 0700 98.1 68 18 120/66 96 10/10 2311 160/60 10/10 2212 99.2 74 16 160/114 94 10/10 2141 85 164/60 10/101 164/58 10/10 2004 99.1 78 18 170/108 94 10/10 1933 98.1 77 18 139/63 93 Room Air Intake & Output 10/11 1600 10/11 0800 10/11 0000 Intake Total 400 100 100 Output Total 700 800 Balance -300 100 -700 Intake, Oral 400 100 100 Output, Urine 700 800 Patient 101.35 kg Weight Weight Bed scale Measurement Method Physical Exam General Appearance: Alert, Oriented X3, Cooperative, No Acute Distress Cardiovascular: Regular Rate, Normal S1, Normal S2, No Murmurs Lungs: Clear to Auscultation, Normal Air Movement Abdomen: Normal Bowel Sounds, Soft, No Tenderness, No Masses Extremities: No Clubbing, No Cyanosis, No Edema, Normal Pulses Current Medications: Current Medications Sig/[place]aine Start time Last Medication Dose Route Stop Time Status Admin Acetaminophen 650 MG Q6P PRN 10/10 1645 AC PO Amlodipine Besylate 5 MG DAILY 10/11 09 AC 10/11 PO 0814 Atorvastatin Calcium 40 MG 1700 10/11 1700 AC 10/11 PO 1531 Clopidogrel Bisulfate 75 MG DAILY 10/11 0900 DC 10/11 PO 0815 Enoxaparin Sodium 40 MG DAILY 10/11 09 CAN SC Gabapentin 100 MG QPM 10/10 2100 AC 10/10 PO 2140 Hydrochlorothiazide 25 MG DAILY 10/11 0900 AC 10/11 PO 0814 Insulin Aspart 0 TIDAC 10/11 0800 AC 10/11 SC 1716 Losartan Potassium 50 MG DAILY 10/11 09 AC 10/11 PO 0814 Metoprolol Succinate 50 MG DAILY@2200 10/11 220 AC PO Metoprolol Succinate 50 MG DAILY 10/10 2040 DC 10/10 PO 2141 Multivitamins 1 TAB DAILY 10/11 09 AC 10/11 PO 0816 Pantoprazole Sodium 40 MG DAILY 10/11 09 AC 10/11 IV 0818 Pantoprazole Sodium 0 .STK-MED ONE 10/10 193 DC IV Tamsulosin HCl 0.4 MG DAILY 10/11 899 AC 10/11 PO 0814 Last 24 Hrs of Lab/Sudhakar Results Last 24 Hrs of Labs/Mics: Laboratory Tests 10/11/17 0645: Anion Gap 10, Estimated GFR > 60, BUN/Creatinine Ratio 18.0, Hemoglobin A1c Pending, Triglycerides 59, Cholesterol 92, LDL Cholesterol, Calc 43 L, HDL Cholesterol 38 L, Cholesterol/HDL Ratio 2, TSH &T3 &Free T4 Intrp 1.190, CBC w Diff NO MAN DIFF REQ, RBC 3.80 L, MCV 69.5 L, MCH 21.8 L, MCHC 31.3 L, RDW 18.0 H, MPV 9.9, Gran % 57.4, Lymphocytes % 28.9, Monocytes % 10.9 H, Eosinophils % 2.5, Basophils % 0.3, Absolute Granulocytes 3.5, Absolute Lymphocytes 1.7, Absolute Monocytes 0.7 H, Absolute Eosinophils 0.1, Absolute Basophils 0 10/10/171914: Troponin I < 0.01 Assessment/Plan Assessment: 86 year old man Faroese speaker with PMH of HTN, HLD, AAA, insulin-dependent diabetes mellitus, anemia, CAD s/p stent most recently in 2016 on full dose aspirin and plavix presented with symptoms of symptomatic anemia and left bundle branch block. Left bundle branch block Obtain old records from Dr. Campbell regarding stress testing Troponins negative consider echocardiogram if no recent available CAD s/p stenting Aspirin and plavix on hold Continue statin and beta sergio HTN Continue losartan and hctz DM Accuchecks tidac Novolog insulin sliding scale Symptomatic anemia Likely secondary to GI bleed Guiaic positive but denies melena Continue PPI Repeat CBC Type and screen No transfusion at this time hgb goal >8 with CAD Diabetic diet DVT prophylaxis Alps Full code Problem List: 1. Left bundle branch block 2. GI bleeding 3. Symptomatic anemia Pain Ratin Pain Location: n/a Pain Goal: Pain 4 or less Pain Plan: prn Tomorrow's Labs & Rationales: cbc Chauncey Hou MD 10/11/17 1628: Attending MD Review Statement Attending Statement Attending MD Statement: examined this patient, discuss w/resident/PA/SCALLOP BINDER, agreed w/resident/PA/SCALLOP BINDER, reviewed EMR data (avail) Attending Assessment/Plan: Mr. Domingo is a 86 y/o male with CAD - s/p stents, hypertension, AAA, hyperlipidemia, insulin-dependent diabetes mellitus, iron deficiency anemia presented for drop in Hb and Hct In the ER, patient was seen. Denied any specific complaints. Vital signs as mentioned above Assessment and Plan 1. Blood loss anemia - IV PPI, GI Consult, ALPS for DVT px. NPO after midnight on Thursday night. Holding ASA and plavix 2. CAD - s/p stent in 2016 - recent stress test within the last 1 year was apparently normal But patient is apparently 325 mg of ASA and plavix 3. 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 If the LBBB is new - then will need a repeat ECHO. Patient does not report and CV symptoms. 4. Hypertension - Hold BP meds for SBP less than 110
--- NOTE | 2017-10-11 12:23 | Cons- General Surgery ---
General Information and HPI Consulting Request Date of Consult: 10/11/17 Requested By: Chauncey Hou MD History of Present Illness: History gotten from family at the bedside who speak Japanese he's awake and alert and can indicate some history as well. cc: 86-year-old diabetic nonsmoker with history of coronary artery disease coronary stents, he's been on aspirin and Plavix for about 2 years, mental status, changes peripheral vascular disease hypertension urinary tract infections on review of chart no history of GI bleeding. He was brought to his primary because of several days of dizziness actually he's had dyspnea on exertion in retrospect even from just making breakfast for about a month. He denies any bleeding per rectum black tarry stools any vomiting that has been a little bit of nausea initially no sweats no chest pain, no recent flulike symptoms, and no abdominal pain. The PFSH and ROS were reviewed family history negative for GI malignancy past surgical history includes an abdominal exploration in 1970 related to a urinary infection. Patient denies any recent endoscopies. Allergies/Medications Allergies: Coded Allergies: NO KNOWN ALLERGIES (10/10/13) Home Med List: Amlodipine Besylate 5 MG TABLET 1 TAB PO DAILY BP (Reported) Clopidogrel Bisulfate (Clopidogrel) 75 MG TABLET 1 TAB PO DAILY BLOOD THINNER (Reported) Gabapentin 100 MG CAPSULE 1 CAP PO QPM NERVE PAIN (Reported) Glimepiride 4 MG TABLET 1 TAB PO BID DM (Reported) Metformin HCl (Glucophage) 1,000 MG TABLET 1 TAB PO BID DM (Reported) Metoprolol Succinate 50 MG TAB.ER.24H 1 TAB PO DAILY HEART/BP (Reported) Rosuvastatin Calcium (Crestor) 10 MG TABLET 1 TAB PO DAILY CHOLESTEROL ( Reported) Tamsulosin HCl 0.4 MG CAP.ER.24H 1 CAP PO DAILY PROSTATE (Reported) Valsartan/Hydrochlorothiazide (Valsartan-Hctz 160-25 MG Tab) 160 MG-25 MG TABLET 1 TAB PO DAILY BP (Reported) Past History Medical History Blood Transfusion Hx: No Neurological: NONE EENT: NONE Cardiovascular: CAD, hypertension, CARDIAC STENTS Respiratory: NONE Gastrointestinal: NONE Hepatic: NONE Renal: nephrolithiasis Musculoskeletal: NONE Psychiatric: NONE Endocrine: diabetes Blood Disorders: anemia Cancer(s): NONE 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 sudden in 70s.). Psychosocial History Where Do You Live? Home Smoking Status: Never Smoked ETOH Use: denies use Illicit Drug Use: denies illicit drug use Functional Ability ADLs Independent: dressing, eating, toileting, bathing. Ambulation: independent Review of Systems Review of Systems: Constitutional: No fever, sweats or weight loss ENMT: No sore throat Cardiovascular: No chest pain, palpitations or leg swelling Respiratory: No shortness of breath, cough, or sputum or dyspnea on exertion GI: No GERD or bleeding per rectum : No dysuria or hematuria Musculoskeletal: No new muscle weakness, bone or joint pain Skin / Breast: No jaundice, rashes or itching Psychiatric: No history of drug or alcohol abuse no depression or anxiety Hematologic / lymphatic system: No problems with excessive bleeding, bruising, or blood clots Exam & Diagnostic Data Vital Signs and I&O I reviewed Vital Signs Date Time Temp Pulse Resp B/P B/P Pulse O2 O2 Flow FiO2 Mean Ox Delivery Rate 10/11 813 136/70 10/11 08 136/70 10/11 0814 136/70 10/11 0700 98.1 68 18 120/66 96 10/10 2311 160/60 10/10 2212 99.2 74 16 160/114 94 10/10 2141 85 164/60 10/10 2141 164/58 10/10 2004 99.1 78 18 170/108 94 10/10 1933 98.1 77 18 139/63 93 Room Air 10/10 1327 98.2 57 18 144/62 94 Room Air I reviewed Intake & Output 10/11 1600 10/11 0810/11 0000 10/10 1600 10/10 0800 10/10 0000 Intake Total 100 100 Output Total 800 Balance 100 -700 Intake, Oral 100 100 Output, Urine 800 Patient 223 lb 210 lb Weight Weight Bed scale Reported by Patient Measurement Method Physical Exam: Constitutional: pleasant, no acute distress, conversant Eyes: sclera anicteric ENMT: ears and nose atraumatic, moist mucous membranes, good dentition, no lip lesions Neck: Supple, trachea is midline, no cervical or supraclavicular adenopathy and no palpable thyromegaly Cardiovascular: S1, S2, no murmurs, no peripheral edema Respiratory: clear to auscultation with normal respiratory effort and no intercostal retractions GI: abdomen soft, nontender, nondistended, no palpable hepatosplenomegaly In particular the area of the scar left lower mid abdomen is soft nontender Extremities / lymphatics: symmetrically warm, free range of motion no peripheral edema, no cervical, supraclavicular, axillary, or inguinal adenopathy Musculoskeletal: Did not evaluate gait and station, no digital cyanosis, good muscle strength and tone no atrophy, motor grossly 5 out of 5 throughout Skin: no jaundice, no rashes warm, nondiaphoretic, no areas of erythema or induration Psychiatric: mood and affect are appropriate and alert and oriented to person place and time Last 24 Hours of Labs: I reviewed Laboratory Tests 10/11 10/10 0645 4045 Chemistry Sodium (137 - 145 mmol/L) 142 Potassium (3.5 - 5.1 mmol/L) 4.3 Chloride (98 - 107 mmol/L) 105 Carbon Dioxide (22 - 30 mmol/L) 27 Anion Gap (5 - 16) 10 BUN (9 - 20 mg/dL) 18 Creatinine (0.7 - 1.2 mg/dL) 1.0 Estimated GFR (>60 ml/min) > 60 BUN/Creatinine Ratio (7 - 25 %) 18.0 Hemoglobin A1c (4.2 - 5.8 %) Pending Troponin I (<0.11 ng/ml) < 0.01 Triglycerides (<150 mg/dL) 59 Cholesterol (< 200 MG/DL) 92 LDL Cholesterol, Calc (65 - 129 mg/dL) 43 L HDL Cholesterol (40 - 60 mg/dL) 38 L Cholesterol/HDL Ratio (0.00 - 4.88 %) 2 TSH &T3 &Free T4 Intrp (0.27 - 4.20 uIU/mL) 1.190 Hematology CBC w Diff NO MAN DIFF REQ WBC (4.8 - 10.8 /CUMM) 6.0 RBC (4.70 - 6.10 /CUMM) 3.80 L Hgb (14.0 - 18.0 G/DL) 8.3 L Hct (42 - 52 %) 26.4 L MCV (80.0 - 94.0 FL) 69.5 L MCH (27.0 - 31.0 PG) 21.8 L MCHC (33.0 - 37.0 G/DL) 31.3 L RDW (11.5 - 14.5 %) 18.0 H Plt Count (130 - 400 /CUMM) 232 MPV (7.4 - 10.4 FL) 9.9 Gran % (42.2 - 75.2 %) 57.4 Lymphocytes % (20.5 - 51.1 %) 28.9 Monocytes % (1.7 - 9.3 %) 10.9 H Eosinophils % (0 - 5 %) 2.5 Basophils % (0.0 - 2.0 %) 0.3 Absolute Granulocytes (1.4 - 6.5 /CUMM) 3.5 Absolute Lymphocytes (1.2 - 3.4 /CUMM) 1.7 Absolute Monocytes (0.10 - 0.60 /CUMM) 0.7 H Absolute Eosinophils (0.0 - 0.7 /CUMM) 0.1 Absolute Basophils (0.0 - 0.2 /CUMM) 0 10/10 1255 Urines Urine Color (YEL,AMB,STR) YEL Urine Clarity (CLEAR) CLEAR Urine pH (5.0 - 8.0) 6.0 Ur Specific [place] (1.001 - 1.035) 1.025 Urine Protein (NEG,<30 MG/DL) NEG Urine Ketones (NEG) NEG Urine Nitrite (NEG) NEG Urine Bilirubin (NEG) NEG Urine Urobilinogen (0.1 - 1.0 EU/dl) 0.2 Ur Leukocyte Esterase (NEG) NEG Ur Microscopic EXAM NOT REQUIRED Urine Hemoglobin (NEG) NEG Urine Glucose (N MG/DL) NEG Assessment/Plan Assessment/Plan Studies: Hemoglobin 06/05/2017 was 11.4 and then during the past 3 days it has been 8.6 8.4 and 8.3, before this it was in the 13-14 range Impression is chronic occult blood loss resulting in symptomatic anemia in an elderly patient with vascular disease. The aspirin and Plavix is probably related. This needs more workup apparently has guaiac positive stool, consider evaluation by gastroenterology. I reviewed yesterday's CT scan on PACS myself there is no prior for comparison, there is no obvious free fluid in the abdomen what is described as a small rectus sheath hematoma in the distal left rectus muscle in my opinion is not this. The rectus muscle in this area is a little thicker than the other side but otherwise appears normal, and just above it is an indentation in the skin and subcutaneous layer which on exam is a left-sided Lange incision, that's a paramedian approach that goes through the rectus muscle so I feel that this is a postoperative change it's been there over 40 years. Anyway it's not tender and it's not of the size to explain an over 3 unit drop in hemoglobin. Problem List: 1. 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
[2017-10-11 13:56] VITALS: BP 148/76
--- NOTE | 2017-10-11 15:33 | Cons- Cardiology ---
General Information and HPI Consulting Request Date of Consult: 10/11/17 Requested By: Chauncey Hou MD Reason for Consult: Preprocedure clearance Source of Information: family Exam Limitations: language barrier History of Present Illness: The patient is a 86-year-old Burkinan-speaking male who is followed by Dr. Maldonado Campbell is his primary diamond grader. His past history is remarkable for hypertension, abdominal aortic aneurysm, hyperlipidemia, insulin-dependent diabetes, anemia, iron deficiency, coronary artery disease, status post stenting in 2003, angioplasty and stenting in 2016 at [facility]. The patient was last seen by Dr. Campbell in August. He was stable at that time and has continued to be stable with absolutely no cardiovascular symptoms noted. The patient is now admitted via the emergency room due to recent blood work results from which showed a significant decrease in his hemoglobin and hematocrit. Apparently, the patient is also noticed recent increase in dizzy spells but no loss of consciousness. No other cardiovascular symptoms noted. The patient was on Plavix and aspirin 325 mg up until preadmission. He is now being considered for colonoscopy. Allergies/Medications Allergies: Coded Allergies: NO KNOWN ALLERGIES (10/10/13) Home Med List: Amlodipine Besylate 5 MG TABLET 1 TAB PO DAILY BP (Reported) Clopidogrel Bisulfate (Clopidogrel) 75 MG TABLET 1 TAB PO DAILY BLOOD THINNER (Reported) Gabapentin 100 MG CAPSULE 1 CAP PO QPM NERVE PAIN (Reported) Glimepiride 4 MG TABLET 1 TAB PO BID DM (Reported) Metformin HCl (Glucophage) 1,000 MG TABLET 1 TAB PO BID DM (Reported) Metoprolol Succinate 50 MG TAB.ER.24H 1 TAB PO DAILY HEART/BP (Reported) Rosuvastatin Calcium (Crestor) 10 MG TABLET 1 TAB PO DAILY CHOLESTEROL ( Reported) Tamsulosin HCl 0.4 MG CAP.ER.24H 1 CAP PO DAILY PROSTATE (Reported) Valsartan/Hydrochlorothiazide (Valsartan-Hctz 160-25 MG Tab) 160 MG-25 MG TABLET 1 TAB PO DAILY BP (Reported) Current Medications: Current Medications Sig/[place] Start time Last Medication Dose Route Stop Time Status Admin Acetaminophen 650 MG Q6P PRN 10/10 1645 AC PO Amlodipine Besylate 5 MG DAILY 10/11 0900 AC 10/11 PO 0814 Atorvastatin Calcium 40 MG 1700 10/11 1700 AC 10/11 PO 1531 Clopidogrel Bisulfate 75 MG DAILY 10/11 0900 DC 10/11 PO 0815 Enoxaparin Sodium 40 MG DAILY 10/11 0900 CAN SC Gabapentin 100 MG QPM 10/10 2100 AC 10/10 PO 2140 Hydrochlorothiazide 25 MG DAILY 10/11 0900 AC 10/11 PO 0814 Insulin Aspart 0 TIDAC 10/11 0800 AC 10/11 SC 1224 Losartan Potassium 50 MG DAILY 10/11 0900 AC 10/11 PO 0814 Metoprolol Succinate 50 MG DAILY@2200 10/11 2200 AC PO Metoprolol Succinate 50 MG DAILY 10/10 2041 DC 10/10 PO 2141 Multivitamins 1 TAB DAILY 10/11 0900 AC 10/11 PO 0816 Pantoprazole Sodium 40 MG DAILY 10/11 09 AC 10/11 IV 0818 Pantoprazole Sodium 0 .STK-MED ONE 10/10 193 DC IV Tamsulosin HCl 0.4 MG DAILY 10/11 0900 AC 10/11 PO 0814 Past History Travel History Traveled to [place] past 21 day No Medical History Blood Transfusion Hx: No Neurological: NONE EENT: NONE Cardiovascular: CAD, hypertension, CARDIAC STENTS Respiratory: NONE Gastrointestinal: NONE Hepatic: NONE Renal: nephrolithiasis Musculoskeletal: NONE Psychiatric: NONE Endocrine: diabetes Blood Disorders: anemia Cancer(s): NONE 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 sudden in 70s.). Psychosocial History Where Do You Live? Home Smoking Status: Never Smoked ETOH Use: denies use Illicit Drug Use: denies illicit drug use Functional Ability ADLs Independent: dressing, eating, toileting, bathing. Ambulation: independent Exam & Diagnostic Data Vital Signs and I&O Vital Signs Date Time Temp Pulse Resp B/P B/P Pulse O2 O2 Flow FiO2 Mean Ox Delivery Rate 10/11 1356 98.5 60 16 148/76 94 Room Air 10/11 813 136/70 10/11 813 136/70 10/11 0814 136/70 10/11 07 98.1 68 18 120/66 96 10/10 2310 160/60 10/11 2211 99.2 74 16 160/114 94 10/10 2140 85 164/60 10/10 2140 164/58 10/10 2004 99.1 78 18 170/108 94 10/10 1932 98.1 77 18 139/63 93 Room Air Intake & Output 10/11 0000 10/10 0000 Intake Total 400 100 100 Output Total 700 800 Balance -300 100 -700 Intake, Oral 400 100 100 Output, Urine 700 800 Patient 223 lb 210 lb Weight Weight Bed scale Reported by Patient Measurement Method Physical Exam: General Appearance: well developed/nourished, alert, awake, oriented Head: normal HEENT: Normal Neck: supple, JVP normal, carotid upstrokes normal bilaterally, no masses or thyromegaly Respiratory: chest non-tender, clear to auscultation and percussion bilaterally Cardiovascular: regular rate/rhythm, normal S1, S2, 1/6 systolic murmur Abdomen: normal bowel sounds, soft, non-tender Extremities: normal inspection, no edema Vascular: Pulses are 2+ and equal bilaterally Neurologic: Grossly normal/nonfocal Labs/Sudhakar Results: Laboratory Tests 10/11 10/10 0645 1915 Chemistry Sodium (137 - 145 mmol/L) 142 Potassium (3.5 - 5.1 mmol/L) 4.3 Chloride (98 - 107 mmol/L) 105 Carbon Dioxide (22 - 30 mmol/L) 27 Anion Gap (5 - 16) 10 BUN (9 - 20 mg/dL) 18 Creatinine (0.7 - 1.2 mg/dL) 1.0 Estimated GFR (>60 ml/min) > 60 BUN/Creatinine Ratio (7 - 25 %) 18.0 Hemoglobin A1c (4.2 - 5.8 %) Pending Troponin I (<0.11 ng/ml) < 0.01 Triglycerides (<150 mg/dL) 59 Cholesterol (< 200 MG/DL) 92 LDL Cholesterol, Calc (65 - 129 mg/dL) 43 L HDL Cholesterol (40 - 60 mg/dL) 38 L Cholesterol/HDL Ratio (0.00 - 4.88 %) 2 TSH &T3 &Free T4 Intrp (0.27 - 4.20 uIU/mL) 1.190 Hematology CBC w Diff NO MAN DIFF REQ WBC (4.8 - 10.8 /CUMM) 6.0 RBC (4.70 - 6.10 /CUMM) 3.80 L Hgb (14.0 - 18.0 G/DL) 8.3 L Hct (42 - 52 %) 26.4 L MCV (80.0 - 94.0 FL) 69.5 L MCH (27.0 - 31.0 PG) 21.8 L MCHC (33.0 - 37.0 G/DL) 31.3 L RDW (11.5 - 14.5 %) 18.0 H Plt Count (130 - 400 /CUMM) 232 MPV (7.4 - 10.4 FL) 9.9 Gran % (42.2 - 75.2 %) 57.4 Lymphocytes % (20.5 - 51.1 %) 28.9 Monocytes % (1.7 - 9.3 %) 10.9 H Eosinophils % (0 - 5 %) 2.5 Basophils % (0.0 - 2.0 %) 0.3 Absolute Granulocytes (1.4 - 6.5 /CUMM) 3.5 Absolute Lymphocytes (1.2 - 3.4 /CUMM) 1.7 Absolute Monocytes (0.10 - 0.60 /CUMM) 0.7 H Absolute Eosinophils (0.0 - 0.7 /CUMM) 0.1 Absolute Basophils (0.0 - 0.2 /CUMM) 0 10/10 10/10 1255 1202 Chemistry Sodium (137 - 145 mmol/L) 140 Potassium (3.5 - 5.1 mmol/L) 4.3 Chloride (98 - 107 mmol/L) 102 Carbon Dioxide (22 - 30 mmol/L) 27 Anion Gap (5 - 16) 11 BUN (9 - 20 mg/dL) 21 H Creatinine (0.7 - 1.2 mg/dL) 1.0 Estimated GFR (>60 ml/min) > 60 BUN/Creatinine Ratio (7 - 25 %) 21.0 Glucose (65 - 99 mg/dL) 183 H Calcium (8.4 - 10.2 mg/dL) 9.7 Total Bilirubin (0.2 - 1.3 mg/dL) 0.3 AST (17 - 59 U/L) 16 L ALT (21 - 72 U/L) 20 L Alkaline Phosphatase (< 127 U/L) 74 Troponin I (<0.11 ng/ml) < 0.01 Total Protein (6.3 - 8.2 g/dL) 6.3 Albumin (3.5 - 5.0 g/dL) 3.7 Globulin (1.9 - 4.2 gm/dL) 2.6 Albumin/Globulin Ratio (1.1 - 2.2 %) 1.4 Coagulation PT (9.4 - 12.5 SEC) 13.4 H INR (0.90 - 1.17) 1.23 H APTT (25 - 37 SEC) 30 Hematology CBC w Diff NO MAN DIFF REQ WBC (4.8 - 10.8 /CUMM) 5.3 RBC (4.70 - 6.10 /CUMM) 3.91 L Hgb (14.0 - 18.0 G/DL) 8.4 L Hct (42 - 52 %) 27.4 L MCV (80.0 - 94.0 FL) 69.9 L MCH (27.0 - 31.0 PG) 21.6 L MCHC (33.0 - 37.0 G/DL) 30.8 L RDW (11.5 - 14.5 %) 17.8 H Plt Count (130 - 400 /CUMM) 243 MPV (7.4 - 10.4 FL) 10.0 Gran % (42.2 - 75.2 %) 61.0 Lymphocytes % (20.5 - 51.1 %) 27.0 Monocytes % (1.7 - 9.3 %) 10.2 H Eosinophils % (0 - 5 %) 1.5 Basophils % (0.0 - 2.0 %) 0.3 Absolute Granulocytes (1.4 - 6.5 /CUMM) 3.2 Absolute Lymphocytes (1.2 - 3.4 /CUMM) 1.4 Absolute Monocytes (0.10 - 0.60 /CUMM) 0.5 Absolute Eosinophils (0.0 - 0.7 /CUMM) 0.1 Absolute Basophils (0.0 - 0.2 /CUMM) 0 Urines Urine Color (YEL,AMB,STR) YEL Urine Clarity (CLEAR) CLEAR Urine pH (5.0 - 8.0) 6.0 Ur Specific [place] (1.001 - 1.035) 1.025 Urine Protein (NEG,<30 MG/DL) NEG Urine Ketones (NEG) NEG Urine Nitrite (NEG) NEG Urine Bilirubin (NEG) NEG Urine Urobilinogen (0.1 - 1.0 EU/dl) 0.2 Ur Leukocyte Esterase (NEG) NEG Ur Microscopic EXAM NOT REQUIRED Urine Hemoglobin (NEG) NEG Urine Glucose (N MG/DL) NEG Assessment/Plan Assessment/Plan Assessment: 1. Symptomatic microcytic anemia with history of iron deficiency 2. History of coronary artery disease, status post prior stenting in 2016 3. Abnormal EKG with left bundle branch block-new since 2013 4. Hypertension 5. Hyperlipidemia 6. Diabetes 7. Ascending aortic aneurysm on (49 mm) 8. Left rectus abdominis muscle hematoma Conditions: -Obtain copies of outside records for review. -From a clinical standpoint, the patient has had no recent cardiac symptoms. His recent testing, per the family, was unremarkable. His examination is unrevealing. He does however have a left bundle branch block on his EKG which is new from 2013. Clinically, the patient should tolerate a colonoscopy or endoscopy if necessary. However, it should be noted that the patient was taking dual antiplatelet therapy up until prior to admission. -Outside records to be reviewed tomorrow. Please obtain a copy of last ECG from Dr. Campbell's office -Please obtain copies of last testing from Dr. Campbell's office. The patient reportedly had a stress test. -Otherwise continue as per the medical team. -If the left bundle branch block is new, the patient should likely have a follow -up echocardiogram and possibly a pharmacologic nuclear stress test at some point. Consult Acknowledgment - Thank you for your consult request.
--- NOTE | 2017-10-11 17:43 | Cons- Gastroenterology ---
General Information and HPI Consulting Request Date of Consult: 10/11/17 Requested By: Chauncey Hou MD Reason for Consult: 1. Anemia Source of Information: patient Exam Limitations: no limitations History of Present Illness: GI is asked to see Mr.Garcia David for evaluation of new onset anemia. He is an 86 yo Turkish speaker with PMHx of hypertension, AAA, hyperlipidemia, insulin -dependent diabetes mellitus, iron deficiency anemia, coronary artery disease who is status post coronary artery stent placement in 2003, ballon angioplasty in 2005, and another stent at 2016 at [facility]. Mr. Jose L David was sent to [facility] Emergency Department by his primary care physician after recent blood work showed a drop in his H&H. Mr. Jose L David had seen his primary care physician with a chief complaint of worsening dizziness, blurry vision over which she had had for several months but which had worsened over the past week. He also complained of shortness of breath on exertion sometimes associated with chest tightness, however he denies any current chest tightness. Patient reports 5 pound weight loss over the last 3 months. He is had no melena nor bright red blood per rectum. He denies nausea vomiting or abdominal pain. He takes aspirin 325 mg daily as well as Plavix. He has had a recent stress test and echocardiogram which is fixed income manager Dr. Campbell told him were normal. Allergies/Medications Allergies: Coded Allergies: NO KNOWN ALLERGIES (10/10/13) Home Med List: Amlodipine Besylate 5 MG TABLET 1 TAB PO DAILY BP (Reported) Clopidogrel Bisulfate (Clopidogrel) 75 MG TABLET 1 TAB PO DAILY BLOOD THINNER (Reported) Gabapentin 100 MG CAPSULE 1 CAP PO QPM NERVE PAIN (Reported) Glimepiride 4 MG TABLET 1 TAB PO BID DM (Reported) Metformin HCl (Glucophage) 1,000 MG TABLET 1 TAB PO BID DM (Reported) Metoprolol Succinate 50 MG TAB.ER.24H 1 TAB PO DAILY HEART/BP (Reported) Rosuvastatin Calcium (Crestor) 10 MG TABLET 1 TAB PO DAILY CHOLESTEROL ( Reported) Tamsulosin HCl 0.4 MG CAP.ER.24H 1 CAP PO DAILY PROSTATE (Reported) Valsartan/Hydrochlorothiazide (Valsartan-Hctz 160-25 MG Tab) 160 MG-25 MG TABLET 1 TAB PO DAILY BP (Reported) Current Medications: Current Medications Sig/Maine Start time Last Medication Dose Route Stop Time Status Admin Acetaminophen 650 MG Q6P PRN 10/10 1645 AC PO Amlodipine Besylate 5 MG DAILY 10/11 0900 AC 10/11 PO 0814 Atorvastatin Calcium 40 MG 1700 10/11 1700 AC 10/11 PO 1531 Clopidogrel Bisulfate 75 MG DAILY 10/11 0900 DC 10/11 PO 0815 Enoxaparin Sodium 40 MG DAILY 10/11 0900 CAN SC Gabapentin 100 MG QPM 10/10 2100 AC 10/10 PO 2140 Hydrochlorothiazide 25 MG DAILY 10/11 0900 AC 10/11 PO 0814 Insulin Aspart 0 TIDAC 10/11 0800 AC 10/11 SC 1716 Losartan Potassium 50 MG DAILY 10/11 0900 AC 10/11 PO 0814 Metoprolol Succinate 50 MG DAILY@2200 10/11 2200 AC PO Metoprolol Succinate 50 MG DAILY 10/10 2041 DC 10/10 PO 2141 Multivitamins 1 TAB DAILY 10/11 0900 AC 10/11 PO 0816 Pantoprazole Sodium 40 MG DAILY 10/11 0900 AC 10/11 IV 0818 Pantoprazole Sodium 0 .STK-MED ONE 10/10 1938 DC IV Tamsulosin HCl 0.4 MG DAILY 10/11 0900 AC 10/11 PO 0814 Past History Travel History Traveled to [place] past 21 day No Medical History Blood Transfusion Hx: No Neurological: NONE EENT: NONE Cardiovascular: CAD, hypertension, CARDIAC STENTS Respiratory: NONE Gastrointestinal: NONE Hepatic: NONE Renal: nephrolithiasis Musculoskeletal: NONE Psychiatric: NONE Endocrine: diabetes Blood Disorders: anemia Cancer(s): NONE MANAGER DECISION SUPPORT/Reproductive: UROSEPSIS Other Medical Hx: UTI Surgical History Surgical History: non-contributory Family History Relations & Conditions If Any: MOTHER (DM? sudden in 70s.). Psychosocial History Where Do You Live? Home Smoking Status: Never Smoked ETOH Use: denies use Illicit Drug Use: denies illicit drug use Functional Ability ADLs Independent: dressing, eating, toileting, bathing. Ambulation: independent Exam & Diagnostic Data Vital Signs and I&O Vital Signs Date Time Temp Pulse Resp B/P B/P Pulse O2 O2 Flow FiO2 Mean Ox Delivery Rate 10/11 1356 98.5 60 16 148/76 94 Room Air 10/11 0814 136/70 10/11 0814 136/70 10/11 0814 136/70 10/11 0700 98.1 68 18 120/66 96 10/10 2311 160/60 10/11 2211 99.2 74 16 160/114 94 10/101 85 164/60 10/10 2140 164/58 10/10 2004 99.1 78 18 170/108 94 10/10 1933 98.1 77 18 139/63 93 Room Air Intake & Output 10/11 0400 10/10 040 Intake Total 500 100 Output Total 700 800 Balance -200 -700 Intake, Oral 500 100 Output, Urine 700 800 Patient 223 lb 210 lb Weight Weight Bed scale Reported by Patient Measurement Method Physical Exam General Appearance: well developed/nourished, no apparent distress, alert, awake Head: atraumatic, normal appearance Eyes: Bilateral: normal appearance. Ears, Nose, Throat: hearing grossly normal Neck: normal inspection, supple, full range of motion Respiratory: lungs clear Cardiovascular: regular rate/rhythm, normal S1 and S2 without rub, murmur, or gallop. Gastrointestinal: normal bowel sounds, soft, non-tender, no organomegaly Extremities: normal inspection, no edema Neurologic/Psych: alert, oriented x 3 Cranial Nerves: normal hearing, normal speech, cranial nerves II-12 are grossly normal Skin: intact, normal color, warm/dry Results Pertinent Lab Results: Laboratory Tests 10/11 10/10 0645 1915 Chemistry Sodium (137 - 145 mmol/L) 142 Potassium (3.5 - 5.1 mmol/L) 4.3 Chloride (98 - 107 mmol/L) 105 Carbon Dioxide (22 - 30 mmol/L) 27 Anion Gap (5 - 16) 10 BUN (9 - 20 mg/dL) 18 Creatinine (0.7 - 1.2 mg/dL) 1.0 Estimated GFR (>60 ml/min) > 60 BUN/Creatinine Ratio (7 - 25 %) 18.0 Hemoglobin A1c (4.2 - 5.8 %) Pending Troponin I (<0.11 ng/ml) < 0.01 Triglycerides (<150 mg/dL) 59 Cholesterol (< 200 MG/DL) 92 LDL Cholesterol, Calc (65 - 129 mg/dL) 43 L HDL Cholesterol (40 - 60 mg/dL) 38 L Cholesterol/HDL Ratio (0.00 - 4.88 %) 2 TSH &T3 &Free T4 Intrp (0.27 - 4.20 uIU/mL) 1.190 Hematology CBC w Diff NO MAN DIFF REQ WBC (4.8 - 10.8 /CUMM) 6.0 RBC (4.70 - 6.10 /CUMM) 3.80 L Hgb (14.0 - 18.0 G/DL) 8.3 L Hct (42 - 52 %) 26.4 L MCV (80.0 - 94.0 FL) 69.5 L MCH (27.0 - 31.0 PG) 21.8 L MCHC (33.0 - 37.0 G/DL) 31.3 L RDW (11.5 - 14.5 %) 18.0 H Plt Count (130 - 400 /CUMM) 232 MPV (7.4 - 10.4 FL) 9.9 Gran % (42.2 - 75.2 %) 57.4 Lymphocytes % (20.5 - 51.1 %) 28.9 Monocytes % (1.7 - 9.3 %) 10.9 H Eosinophils % (0 - 5 %) 2.5 Basophils % (0.0 - 2.0 %) 0.3 Absolute Granulocytes (1.4 - 6.5 /CUMM) 3.5 Absolute Lymphocytes (1.2 - 3.4 /CUMM) 1.7 Absolute Monocytes (0.10 - 0.60 /CUMM) 0.7 H Absolute Eosinophils (0.0 - 0.7 /CUMM) 0.1 Absolute Basophils (0.0 - 0.2 /CUMM) 0 10/10 10/10 1255 1202 Chemistry Sodium (137 - 145 mmol/L) 140 Potassium (3.5 - 5.1 mmol/L) 4.3 Chloride (98 - 107 mmol/L) 102 Carbon Dioxide (22 - 30 mmol/L) 27 Anion Gap (5 - 16) 11 BUN (9 - 20 mg/dL) 21 H Creatinine (0.7 - 1.2 mg/dL) 1.0 Estimated GFR (>60 ml/min) > 60 BUN/Creatinine Ratio (7 - 25 %) 21.0 Glucose (65 - 99 mg/dL) 183 H Calcium (8.4 - 10.2 mg/dL) 9.7 Total Bilirubin (0.2 - 1.3 mg/dL) 0.3 AST (17 - 59 U/L) 16 L ALT (21 - 72 U/L) 20 L Alkaline Phosphatase (< 127 U/L) 74 Troponin I (<0.11 ng/ml) < 0.01 Total Protein (6.3 - 8.2 g/dL) 6.3 Albumin (3.5 - 5.0 g/dL) 3.7 Globulin (1.9 - 4.2 gm/dL) 2.6 Albumin/Globulin Ratio (1.1 - 2.2 %) 1.4 Coagulation PT (9.4 - 12.5 SEC) 13.4 H INR (0.90 - 1.17) 1.23 H APTT (25 - 37 SEC) 30 Hematology CBC w Diff NO MAN DIFF REQ WBC (4.8 - 10.8 /CUMM) 5.3 RBC (4.70 - 6.10 /CUMM) 3.91 L Hgb (14.0 - 18.0 G/DL) 8.4 L Hct (42 - 52 %) 27.4 L MCV (80.0 - 94.0 FL) 69.9 L MCH (27.0 - 31.0 PG) 21.6 L MCHC (33.0 - 37.0 G/DL) 30.8 L RDW (11.5 - 14.5 %) 17.8 H Plt Count (130 - 400 /CUMM) 243 MPV (7.4 - 10.4 FL) 10.0 Gran % (42.2 - 75.2 %) 61.0 Lymphocytes % (20.5 - 51.1 %) 27.0 Monocytes % (1.7 - 9.3 %) 10.2 H Eosinophils % (0 - 5 %) 1.5 Basophils % (0.0 - 2.0 %) 0.3 Absolute Granulocytes (1.4 - 6.5 /CUMM) 3.2 Absolute Lymphocytes (1.2 - 3.4 /CUMM) 1.4 Absolute Monocytes (0.10 - 0.60 /CUMM) 0.5 Absolute Eosinophils (0.0 - 0.7 /CUMM) 0.1 Absolute Basophils (0.0 - 0.2 /CUMM) 0 Urines Urine Color (YEL,AMB,STR) YEL Urine Clarity (CLEAR) CLEAR Urine pH (5.0 - 8.0) 6.0 Ur Specific [place] (1.001 - 1.035) 1.025 Urine Protein (NEG,<30 MG/DL) NEG Urine Ketones (NEG) NEG Urine Nitrite (NEG) NEG Urine Bilirubin (NEG) NEG Urine Urobilinogen (0.1 - 1.0 EU/dl) 0.2 Ur Leukocyte Esterase (NEG) NEG Ur Microscopic EXAM NOT REQUIRED Urine Hemoglobin (NEG) NEG Urine Glucose (N MG/DL) NEG Assessment/Plan Assessment/Recommendations: ASSESSMENT: 1. History of coronary artery disease -- stable 2. Long-term use of antiplatelet agents 3. New-onset microcytic anemia without gross luminal GI blood loss RECOMMENDATIONS: 1. EGD and colonoscopy must be deferred given that patient is still on Plavix. If we are going to intervene patient will need to be off Plavix for at least 5 days. We'll discuss with cardiology. If Plavix is stopped on Thursday patient can have colonoscopy on Thursday morning. This can be done as an outpatient. Would consider doing an EGD on Plavix tomorrow to rule out peptic ulcer disease however no biopsies or intervention would be possible given ongoing use of an antiplatelet agent 2. Patient had both breakfast and lunch today and will be difficult to prep for tomorrow. If patient plans outpatient colonoscopy Beginning morning clear liquid diet 3. at 5 PM GoLYTELY 2 L 4. Thursday a.m. at approximately 6 AM patient to have 2 L of GoLYTELY to be consumed as 8 ounces every 15 minutes and then nothing by mouth Consult Acknowledgment - Thank you for your consult request.
[2017-10-11 22:46] VITALS: BP 144/74
[2017-10-12 06:57] VITALS: BP 142/66
--- NOTE | 2017-10-12 07:55 | PN- Housestaff ---
Christopher PACE,Marina 10/12/17 0755: Subjective Follow-up For: ANEMIA 2/2 GI BLEED LBBB HISTORY CAD SP STENTING Complaints: no complaints Tele-Events Since Last Visit: SINUS CARLOS 50-61 WITH FIRST DEGREE AVB OH INTERVAL .28 W PACS AND PVCS. Patient had a low of 41BPM yesterday. Subjective: Patient seen and examined. He states that he feels ok, has no complaints. Denies dizziness, chest pain, abdominal pain, current blood in his stools, no nausea or vomiting. Patient is eating breakfast. Review of Systems Constitutional: Reports: no symptoms. EENTM: Reports: no symptoms. Cardiovascular: Reports: no symptoms. Respiratory: Reports: no symptoms. Gastrointestinal: Reports: no symptoms. Genitourinary: Reports: no symptoms. Musculoskeletal: Reports: no symptoms. Skin: Reports: no symptoms. Neurological/Psychological: Reports: no symptoms. Objective Last 24 Hrs of Vital Signs/I&O Vital Signs Date Time Temp Pulse Resp B/P B/P Pulse O2 O2 Flow FiO2 Mean Ox Delivery Rate 10/12 0842 140/76 10/12 0842 140/76 10/12 0842 140/76 10/12 0657 97.8 53 18 142/66 95 Room Air 10/11 2246 98.4 53 18 144/74 96 10/11 2104 74 144/74 Intake & Output 10/12 1600 10/12 0800 10/12 0000 Intake Total 100 100 Output Total Balance 100 100 Intake, Oral 100 100 Patient 224 lb Weight Physical Exam General Appearance: Alert, Cooperative, No Acute Distress Skin: No Rashes, No Breakdown, No Significant Lesion, multiple back lesions seborrheic dermatosis Skin Temp/Moisture Exam: Warm/Dry Sepsis Skin Exam (color): Normal for Ethnicity HEENT: Atraumatic, PERRLA, EOMI, Mucous Membr. moist/pink Neck: Supple, No JVD Cardiovascular: Regular Rate, Normal S1, Normal S2, 2/6 systolic llsb murmur Lungs: Clear to Auscultation, Normal Air Movement Abdomen: Normal Bowel Sounds, Soft, No Tenderness, rectus diastasis Neurological: Normal Speech Extremities: No Clubbing, No Cyanosis, No Edema Vascular: Normal Pulses, Pulses Symmetrical Current Medications: Current Medications Sig/Maine Start time Last Medication Dose Route Stop Time Status Admin Acetaminophen 650 MG Q6P PRN 10/10 1645 AC PO Amlodipine Besylate 5 MG DAILY 10/11 0900 AC 10/12 PO 0842 Atorvastatin Calcium 40 MG 1700 10/11 1700 AC 10/11 PO 1531 Ferrous Sulfate 325 MG BID 10/12 1331 AC PO Gabapentin 100 MG QPM 10/10 2100 AC 10/11 PO 2058 Hydrochlorothiazide 25 MG DAILY 10/11 09 AC 10/12 PO 0842 Insulin Aspart 0 TIDAC 10/11 08 AC 10/12 SC 1227 Losartan Potassium 50 MG DAILY 10/11 09 AC 10/12 PO 0842 Metoprolol Succinate 50 MG DAILY@2200 10/11 2200 AC 10/11 PO 2104 Multivitamins 1 TAB DAILY 10/11 09 AC 10/12 PO 0842 Pantoprazole Sodium 40 MG DAILY 10/11 09 AC 10/12 IV 0842 Tamsulosin HCl 0.4 MG DAILY 10/11 09 AC 10/12 PO 0842 Last 24 Hrs of Lab/Sudhakar Results Last 24 Hrs of Labs/Mics: Laboratory Tests 10/12/17 1010: Iron 21 L, TIBC 376, Ferritin 7.9 L 10/12/17 0645: CBC w Diff MAN DIFF ORDERED, RBC 3.67 L, MCV 69.2 L, MCH 22.2 L, MCHC 32.0 L , RDW 17.8 H, MPV 10.3, Gran % 61.1, Lymphocytes % 27.5, Monocytes % 9.5 H, Eosinophils % 1.9, Basophils % 0, Absolute Granulocytes 4.2, Segmented Neutrophils 59, Absolute Lymphocytes 1.9, Lymphocytes 26, Monocytes 9, Absolute Monocytes 0.6, Eosinophils 5, Absolute Eosinophils 0.1, Basophils 1, Absolute Basophils 0, Platelet Estimate VERIFIED BY SMEAR, Hypochromic-Microcytic 1+, Poikilocytosis 1+, Anisocytosis 1+, Microcytic Cells 1+, Elliptocytes FEW Assessment/Plan Assessment: 86 year old man [place] Islander speaker with PMH of HTN, HLD, AAA, insulin-dependent diabetes mellitus, anemia, CAD s/p stent in 2002 and most recently in 2016 on full dose aspirin and plavix presented with symptoms of symptomatic anemia and left bundle branch block. On admission hemoglobin was 8.6. CTA showed small distal deep left rectus abdominal hematoma. Patient has no history of trauma to the abdomen or abdominal pain. His stool guaiac was positive. Overnight the patient has been stable. Telemetry shows bradycardia with first-degree AV block. Vitals are otherwise stable, patient is normotensive for age at 142/66. 1. Left bundle branch block in stenting of coronary artery disease status post multiple angioplasty and stent placements and hypertension -The patient's record clerk salesperson, Dr. Campbell has been consulted. The patient has 2 stents, one in the circumflex marginal and the other in the proximal LAD. The patient has a history of stent restenosis. He last had a stress test in April 2016 which showed a small to moderate area of focal anteroapical ischemia. At that point his ejection fraction was 27% down from 39% from the previous reading. Also seen was diffuse moderate to severe hypokinesis. The left bundle branch block has been known to the patient's record clerk salesperson. -Troponins negative -As patient has had fairly recent echo, no echo is warranted during this admission. -We can continue the patient's outpatient cardiac medications of amlodipine 5 mg , metoprolol 50 mg, rosuvastatin 10 mg, valsartan 160 mg, hydrochlorothiazide 25 mg. However we will hold aspirin and Plavix for GI bleed. In hospital we are giving losartan and atorvastatin instead of valsartan and rosuvastatin. 2. DM: Overnight blood sugars are between 133 and 165. Hemoglobin A1c is 7.0. -Accuchecks tidac -Novolog insulin sliding scale 3. Symptomatic anemia: Patient was admitted with symptoms of anemia including dizziness, chest pain, some shortness of breath. Guiaic positive but denies melena. INR is 1.3. Hemoglobin today is 8.1. Nurse denies any overt signs of blood on fecal exam. Iron tests showed iron level 21, ferritin 7.9, TIBC 376. -Continue PPI -Monitor CBC -Type and screen -No transfusion at this time hgb goal >8 with CAD -GI saw the patient stated that he would need a colonoscopy to identify the source of bleeding. If we go ahead with that, the patient needs to be off Plavix for 5 days so could do this or Thursday as an outpatient. He technically could do an EGD while in the hospital soon, and no biopsies be able to be obtained as the patient was very recently on Plavix. It is decided today that we will defer EGD and colonoscopy until the patient is off Plavix for a total of 5 days. The record clerk salesperson has cleared the patient for these procedures on or Thursday. -Start ferrous sulfate twice a day -It was suspected that patient had a hematoma that was the cause for his drop in hemoglobin. However surgery saw the patient and believes that on radiology, there is no hematoma but instead scar tissue from a previous surgery. Diabetic diet DVT prophylaxis Alps Full code Problem List: 1. terminal operations manager (current) use of anticoagulants 2. Left bundle branch block 3. GI bleeding Pain Ratin Pain Location: na Pain Goal: Remain pain free Pain Plan: na Tomorrow's Labs & Rationales: cbc bep Natasha Ponce 10/12/17 0931: Attending MD Review Statement Attending Statement Attending MD Statement: examined this patient, discuss w/resident/PA/MILK HOUSE WORKER, agreed w/resident/PA/MILK HOUSE WORKER, discussed with family, reviewed EMR data (avail), discussed with nursing, discussed with case mgmt, reviewed images, amended to note Attending Assessment/Plan: Patient seen/examined bedside. Patient admitted here for dizzness 2/2 acute blood loss anemia possible GI bleed. Patient has past medical history of CAD s/p stent placement 2016. Patient denies any new complaints. Cardiology and GI consulted during the hospital stay. Plan for colonscopy as per GI. Obtain previous records. Antiplatelet therapy as per Cardiology/GI.
[2017-10-12 08:27] LABS: ABSOLUTE BASOPHIL COUNT 0 /CUMM (0.0-0.2); ABSOLUTE EOSINOPHIL COUNT 0.1 /CUMM (0.0-0.7); ABSOLUTE GRANULOCYTE CT 4.2 /CUMM (1.4-6.5); ABSOLUTE LYMPH COUNT 1.9 /CUMM (1.2-3.4); ABSOLUTE MONOCYTE COUNT 0.6 /CUMM (0.10-0.60); BASOPHIL % 0 % (0.0-2.0); EOSINOPHIL % 1.9 % (0-5); GRANULOCYTE % 61.1 % (42.2-75.2); HEMATOCRIT 25.4 % (42-52); MEAN CORPUSCULAR HGB 22.2 PG (27.0-31.0); MEAN CORPUSCULAR VOLUME 69.2 FL (80.0-94.0); MEAN PLATELET VOLUME 10.3 FL (7.4-10.4); PLATELET COUNT 230 /CUMM (130-400); RBC DISTRIBUTION WIDTH 17.8 % (11.5-14.5); RED BLOOD CELL CT 3.67 /CUMM (4.70-6.10); WHITE BLOOD CELL COUNT 6.8 /CUMM (4.8-10.8)
--- NOTE | 2017-10-12 09:12 | PN- Cardiology ---
Subjective Subjective: Mr. Jose L David is an 86-year-old male with known coronary artery disease. He previously saw Dr. Wright in [place]. According to Dr. Wright's notes, he had angioplasty on 10/11/2002 to the proximal LAD and again on 11/18/2002, he had a circumflex marginal stent. In 2004, he had repeat cardiac catheterization showing a 90% ostial lesion involving a diagonal branch with 80% stenosis in the LAD proximal to the diagonal branch. He had angioplasty for this on 02/28/2005. In 2009, he had an abnormal stress test showing anterior ischemia. He had angioplasty on 07/02/2009 at [facility] with in-stent restenosis of the LAD to 60% proximally and 60% to 70% in the mid segment with total occlusion of the stent in the ostial diagonal lesion. He had angioplasty of the mid and proximal LAD. He again had cardiac catheterization on 11/15/2015 and again had a stent in the proximal LAD. He had a followup stress test in April 2016 showing a small area of anteroapical ischemia, being followed medically. His last stress test available to me from 05/06/2016, showed showed a small to moderate anterolateral ischemia at the apex and a left ventricular ejection fraction of 27% with diffuse moderate to severe hypokinesis, which was less than his previous stress test showing an ejection fraction of 39%. His medical regimen when I saw him in the office in August 2017 included amlodipine 5 mg daily, aspirin 81 mg daily, clopidogrel 75 mg daily, diabetic medications, metoprolol 50 mg daily, rosuvastatin 10 mg daily, valsartan 160 mg, and hydrochlorothiazide 25 mg daily. He is a nonsmoker. He does not drink alcohol. He is being treated for dyslipidemia and hypertension. I ordered an echocardiogram at his initial visit, which showed moderate LVH with a left ventricular cavity size at upper limits of normal. Ejection fraction was 45% to 50% with abnormal septal motion and stage I diastolic dysfunction. There was mild left atrial dilatation. There was thickening of aortic and mitral valves, and normal pulmonary artery pressure. The patient has known left bundle branch block on his EKG. The patient presents with dizziness and shortness of breath and was found to be anemic. His Plavix and aspirin have been held. His troponins are negative. His blood count has been relatively stable with hemoglobins in the range of 8.1- 8.6. There does not appear to be any active bleeding. Objective Vital Signs and I&Os Vital Signs Date Time Temp Pulse Resp B/P B/P Pulse O2 O2 Flow FiO2 Mean Ox Delivery Rate 10/12 0842 140/76 10/12 0842 140/76 10/12 0842 140/76 10/12 0657 97.8 53 18 142/66 95 Room Air 10/11 2246 98.4 53 18 144/74 96 10/11 2104 74 144/74 10/11 1356 98.5 60 16 148/76 94 Room Air Intake & Output 10/12 1600 10/12 0800 10/12 0000 10/11 1600 10/12 0700 10/11 0000 Intake Total 100 100 400 100 100 Output Total 700 800 Balance 100 100 -300 100 -700 Intake, Oral 100 100 400 100 100 Output, Urine 700 800 Patient 224 lb 223 lb Weight Weight Bed scale Measurement Method Physical Exam: The patient is in no distress sitting in a chair HEENT exam normal Chest clear Heart soft systolic murmur at the apex and base Extremities trace edema, alps in place Current Medications: Current Medications Sig/Maine Start time Last Medication Dose Route Stop Time Status Admin Acetaminophen 650 MG Q6P PRN 10/10 1645 AC PO Amlodipine Besylate 5 MG DAILY 10/11 09 AC 10/12 PO 0842 Atorvastatin Calcium 40 MG 1700 10/11 1700 AC 10/11 PO 1531 Clopidogrel Bisulfate 75 MG DAILY 10/11 09 DC 10/11 PO 0815 Gabapentin 100 MG QPM 10/10 2100 AC 10/11 PO 2058 Hydrochlorothiazide 25 MG DAILY 10/11 09 AC 10/12 PO 0842 Insulin Aspart 0 TIDAC 10/11 0800 AC 10/11 SC 1716 Losartan Potassium 50 MG DAILY 10/11 09 AC 10/12 PO 0842 Metoprolol Succinate 50 MG DAILY@2200 10/11 2200 AC 10/11 PO 2104 Metoprolol Succinate 50 MG DAILY 10/10 2040 DC 10/10 PO 214 Multivitamins 1 TAB DAILY 10/11 09 AC 10/12 PO 0842 Pantoprazole Sodium 40 MG DAILY 10/11 09 AC 10/12 IV 0842 Tamsulosin HCl 0.4 MG DAILY 10/11 09 AC 10/12 PO 0842 Results Last 48 Hrs of Labs/Mics: Laboratory Tests 10/12/17 0645: CBC w Diff NO MAN DIFF REQ, RBC 3.67 L, MCV 69.2 L, MCH 22.2 L, MCHC 32.0 L, RDW 17.8 H, MPV 10.3, Gran % 61.1, Lymphocytes % 27.5, Monocytes % 9.5 H, Eosinophils % 1.9, Basophils % 0, Absolute Granulocytes 4.2, Absolute Lymphocytes 1.9, Absolute Monocytes 0.6, Absolute Eosinophils 0.1, Absolute Basophils 0 10/11/17 0645: Anion Gap 10, Estimated GFR > 60, BUN/Creatinine Ratio 18.0, Hemoglobin A1c Pending, Triglycerides 59, Cholesterol 92, LDL Cholesterol, Calc 43 L, HDL Cholesterol 38 L, Cholesterol/HDL Ratio 2, TSH &T3 &Free T4 Intrp 1.190, CBC w Diff NO MAN DIFF REQ, RBC 3.80 L, MCV 69.5 L, MCH 21.8 L, MCHC 31.3 L, RDW 18.0 H, MPV 9.9, Gran % 57.4, Lymphocytes % 28.9, Monocytes % 10.9 H, Eosinophils % 2.5, Basophils % 0.3, Absolute Granulocytes 3.5, Absolute Lymphocytes 1.7, Absolute Monocytes 0.7 H, Absolute Eosinophils 0.1, Absolute Basophils 0 10/10/17 1915: Troponin I < 0.01 10/10/17 1255: Urine Color YEL, Urine Clarity CLEAR, Urine pH 6.0, Ur Specific [place] 1.025, Urine Protein NEG, Urine Ketones NEG, Urine Nitrite NEG, Urine Bilirubin NEG, Urine Urobilinogen 0.2, Ur Leukocyte Esterase NEG, Ur Microscopic EXAM NOT REQUIRED, Urine Hemoglobin NEG, Urine Glucose NEG 10/10/17 1202: Anion Gap 11, Estimated GFR > 60, BUN/Creatinine Ratio 21.0, Glucose 183 H, Calcium 9.7, Total Bilirubin 0.3, AST 16 L, ALT 20 L, Alkaline Phosphatase 74, Troponin I < 0.01, Total Protein 6.3, Albumin 3.7, Globulin 2.6, Albumin/ Globulin Ratio 1.4, PT 13.4 H, INR 1.23 H, APTT 30, CBC w Diff NO MAN DIFF REQ , RBC 3.91 L, MCV 69.9 L, MCH 21.6 L, MCHC 30.8 L, RDW 17.8 H, MPV 10.0, Gran % 61.0, Lymphocytes % 27.0, Monocytes % 10.2 H, Eosinophils % 1.5, Basophils % 0.3, Absolute Granulocytes 3.2, Absolute Lymphocytes 1.4, Absolute Monocytes 0.5, Absolute Eosinophils 0.1, Absolute Basophils 0 Assessment/Plan Assessment/Plan The patient is stable from a cardiac standpoint. He has underlying left bundle branch block which is not new. He had recent echocardiogram which showed wall motion abnormalities consistent with his known coronary artery disease. He does not appear to be actively bleeding although his hemoglobin and hematocrit are less than his baseline. I think the patient is stable enough for discharge from a cardiac standpoint. He is cleared for endoscopy and colonoscopy, which most likely will be done as outpatient. I do not think he needs an echocardiogram at this time. I would continue him off his aspirin and Plavix until after his GI evaluation is complete. At that time he can probably be restarted on just aspirin alone as his stenting was in the distant past. Continue telemetry? No
--- NOTE | 2017-10-12 11:27 | PN- Student ---
Subjective Subjective: Pt reports feeling better. He had questions about procedure, and we discussed the GI's recommendation to wait until he's been off anti-platelet therapy fo 5 days until the colonoscopy is performed. Pt denies dizziness, nausea, chest pain , and abdominal pain. Pt had no acute overnight events, however noted to have bradycardia as low as 41, but he is asymptomatic Objective Objective: Vital Signs Date Time Temp Pulse Resp B/P B/P Pulse O2 O2 Flow FiO2 Mean Ox Delivery Rate 10/12 0842 140/76 10/12 0842 140/76 10/12 0842 140/76 10/12 0657 97.8 53 18 142/66 95 Room Air 10/11 2246 98.4 53 18 144/74 96 10/11 2104 74 144/74 10/11 1356 98.5 60 16 148/76 94 Room Air Intake & Output 10/12 1600 10/12 0800 10/12 0000 Intake Total 100 100 Output Total Balance 100 100 Intake, Oral 100 100 Patient 224 lb Weight Physical Exam General appearance: well-appearing male in no acute distress CV: 2/6 systolic murmur heard at lower left sternal border Pulmonary: Bibasilar crackles heard on inspiration GI: abdomen soft and nontender Skin: many seborrheic keratoses on back Results Results: Laboratory Tests 10/12/17 1010: Iron 21 L, TIBC 376, Ferritin Pending 10/12/17 0645: CBC w Diff NO MAN DIFF REQ, RBC 3.67 L, MCV 69.2 L, MCH 22.2 L, MCHC 32.0 L, RDW 17.8 H, MPV 10.3, Gran % 61.1, Lymphocytes % 27.5, Monocytes % 9.5 H, Eosinophils % 1.9, Basophils % 0, Absolute Granulocytes 4.2, Absolute Lymphocytes 1.9, Absolute Monocytes 0.6, Absolute Eosinophils 0.1, Absolute Basophils 0 10/11/17 0645: Anion Gap 10, Estimated GFR > 60, BUN/Creatinine Ratio 18.0, Hemoglobin A1c 7.0 H, Triglycerides 59, Cholesterol 92, LDL Cholesterol, Calc 43 L, HDL Cholesterol 38 L, Cholesterol/HDL Ratio 2, TSH &T3 &Free T4 Intrp 1.190, CBC w Diff NO MAN DIFF REQ, RBC 3.80 L, MCV 69.5 L, MCH 21.8 L, MCHC 31.3 L, RDW 18.0 H, MPV 9.9, Gran % 57.4, Lymphocytes % 28.9, Monocytes % 10.9 H, Eosinophils % 2.5, Basophils % 0.3, Absolute Granulocytes 3.5, Absolute Lymphocytes 1.7, Absolute Monocytes 0.7 H, Absolute Eosinophils 0.1, Absolute Basophils 0 10/10/17 1915: Troponin I < 0.01 10/10/17 1255: Urine Color YEL, Urine Clarity CLEAR, Urine pH 6.0, Ur Specific [place] 1.025, Urine Protein NEG, Urine Ketones NEG, Urine Nitrite NEG, Urine Bilirubin NEG, Urine Urobilinogen 0.2, Ur Leukocyte Esterase NEG, Ur Microscopic EXAM NOT REQUIRED, Urine Hemoglobin NEG, Urine Glucose NEG 10/10/17 1202: Anion Gap 11, Estimated GFR > 60, BUN/Creatinine Ratio 21.0, Glucose 183 H, Calcium 9.7, Total Bilirubin 0.3, AST 16 L, ALT 20 L, Alkaline Phosphatase 74, Troponin I < 0.01, Total Protein 6.3, Albumin 3.7, Globulin 2.6, Albumin/ Globulin Ratio 1.4, PT 13.4 H, INR 1.23 H, APTT 30, CBC w Diff NO MAN DIFF REQ , RBC 3.91 L, MCV 69.9 L, MCH 21.6 L, MCHC 30.8 L, RDW 17.8 H, MPV 10.0, Gran % 61.0, Lymphocytes % 27.0, Monocytes % 10.2 H, Eosinophils % 1.5, Basophils % 0.3, Absolute Granulocytes 3.2, Absolute Lymphocytes 1.4, Absolute Monocytes 0.5, Absolute Eosinophils 0.1, Absolute Basophils 0 Assessment/Plan Assessment: 86 year old male with PMH of HTN, ascending thoracic aneurysm (4.9cm), LBBB, dyslipidemia, insulin-dependent DM, iron deficiency anemia, CAP s/p angioplasty and multiple stents, decreased LV function from 39%-27% on nuclear stress, and long-term dual antiplatelet use who was sent to the ED by his PCP for an acute drop in H&H. given positive stool guiaic on admission, long-term dual anti-platelet therapy, and labs indicating microcytic iron-deficiency anemia there is concern for a GI bleed. Plan: 1. symptomatic anemia -low Hb(8.3) and Hct, low MCV, low ferritin, positive stool guaiac indicating iron deficiency anemia with possible superimposed GI -start oral iron supplement -reticulocyte count pending -scope on with Dr. Rodrigez (must wait 5 days after stopping anti- platelets) -continue PPI -2 large bore IVs -hold all anti-platelets and anti-coags 2. LBBB -seen on EKG on admission -per Dr. Campbell, this is not new & pt is not symptomatic. no intervention needed -pt is cleared for colonoscopy 3. insulin-dependent DM -continue novolog TIDAC -last 5 fingersticks : 228, 228, 141, 141, 133 4. CAD and HTN -stop plavix -hold aspirin until GI workup is complete -continue HCTZ, losartan, amlodipine, metoprolol with hold parameters
[2017-10-12 14:04] VITALS: BP 120/58
--- NOTE | 2017-10-12 14:16 | PN- Gastroenterology ---
Assessment/Plan GI Assessment/Recommendations: ASSESSMENT: 1. LBBB -- evaluation by cardiology 2. Chronic use antiplatelet agent -- patient will need to be off Plavix 5 days prior to upper endoscopy and colonoscopy 3. Chronic blood loss anemia 4. Iron deficiency 5. Hemoccult-positive stool RECOMMENDATIONS: 1. Defer EGD and colonoscopy until patient off Plavix for 5 days 2. Colonic preparation on Thursday for EGD and colonoscopy on Thursday which will be 5 days off Plavix 3. Start clear liquid diet on Thursday. 4. GoLYTELY 2 L Thursday at 5 PM 5. GoLYTELY 2 L on Thursday at 5 AM to be consumed at 15 minute or intervals until completed then patient to be nothing by mouth afterwards Subjective Subjective: Patient is comfortable. There has been no ongoing overt GI Blood loss. Has LBBB which is being evaluated by cardiology. Has been off Plavix for only 2 days which precludes endoscopic evaluation. No nausea, vomiting or abdominal pain. Patient was seen by cardiology. Left bundle-branch is old. He has been cleared for upper endoscopy and colonoscopy. Objective Vital Signs and I&Os Vital Signs Date Time Temp Pulse Resp B/P B/P Pulse O2 O2 Flow FiO2 Mean Ox Delivery Rate 10/12 1404 98.1 72 18 120/58 96 Room Air 10/12 0842 140/76 10/12 0842 140/76 10/12 0842 140/76 10/12 0657 97.8 53 18 142/66 95 Room Air 10/11 2246 98.4 53 18 144/74 96 10/11 2104 74 144/74 Intake & Output 10/12 1600 10/12 0400 10/11 1600 10/11 0400 10/10 1600 10/10 0400 Intake Total 100 100 500 100 Output Total 700 800 Balance 100 100 -200 -700 Intake, Oral 100 100 500 100 Output, Urine 700 800 Patient 224 lb 223 lb 210 lb Weight Weight Bed scale Reported by Patient Measurement Method Physical Exam General Appearance: well developed/nourished, no apparent distress, alert, awake Abdomen: normal bowel sounds, soft, non-tender, no organomegaly Neurologic/Psychiatric: alert, oriented x 3 Current Medications: Current Medications Sig/[place] Start time Last Medication Dose Route Stop Time Status Admin Acetaminophen 650 MG Q6P PRN 10/10 1645 AC PO Amlodipine Besylate 5 MG DAILY 10/11 0900 AC 10/12 PO 0842 Atorvastatin Calcium 40 MG 1700 10/11 1700 AC 10/11 PO 1531 Ferrous Sulfate 325 MG BID 10/12 1331 AC PO Gabapentin 100 MG QPM 10/10 2099 AC 10/11 PO 2057 Hydrochlorothiazide 25 MG DAILY 10/11 09 AC 10/12 PO 0842 Insulin Aspart 0 TIDAC 10/11 08 AC 10/12 SC 1227 Losartan Potassium 50 MG DAILY 10/11 899 AC 10/12 PO 0842 Metoprolol Succinate 50 MG DAILY@10/11 AC 10/11 PO 210 Multivitamins 1 TAB DAILY 10/11 09 AC 10/12 PO 0842 Pantoprazole Sodium 40 MG DAILY 10/11 899 AC 10/12 IV 0842 Tamsulosin HCl 0.4 MG DAILY 10/11 899 AC 10/12 PO 0842 Results Pertinent Lab Results: Laboratory Tests 10/12 10/12 1010 0645 Chemistry Iron (49 - 181 ug/dL) 21 L TIBC (261 - 462 ug/dL) 376 Ferritin (17.9 - 464 ng/mL) 7.9 L Hematology CBC w Diff MAN DIFF ORDERED WBC (4.8 - 10.8 /CUMM) 6.8 RBC (4.70 - 6.10 /CUMM) 3.67 L Hgb (14.0 - 18.0 G/DL) 8.1 L Hct (42 - 52 %) 25.4 L MCV (80.0 - 94.0 FL) 69.2 L MCH (27.0 - 31.0 PG) 22.2 L MCHC (33.0 - 37.0 G/DL) 32.0 L RDW (11.5 - 14.5 %) 17.8 H Plt Count (130 - 400 /CUMM) 230 MPV (7.4 - 10.4 FL) 10.3 Gran % (42.2 - 75.2 %) 61.1 Lymphocytes % (20.5 - 51.1 %) 27.5 Monocytes % (1.7 - 9.3 %) 9.5 H Eosinophils % (0 - 5 %) 1.9 Basophils % (0.0 - 2.0 %) 0 Absolute Granulocytes (1.4 - 6.5 /CUMM) 4.2 Segmented Neutrophils (42.2 - 75.2 %) 59 Absolute Lymphocytes (1.2 - 3.4 /CUMM) 1.9 Lymphocytes (20.5 - 51.1 %) 26 Monocytes (1.7 - 9.3 %) 9 Absolute Monocytes (0.10 - 0.60 /CUMM) 0.6 Eosinophils (0 - 5.0 %) 5 Absolute Eosinophils (0.0 - 0.7 /CUMM) 0.1 Basophils (0.0 - 2.0 %) 1 Absolute Basophils (0.0 - 0.2 /CUMM) 0 Platelet Estimate (ADEQUATE) VERIFIED BY SMEAR Hypochromic-Microcytic 1+ Poikilocytosis 1+ Anisocytosis 1+ Microcytic Cells 1+ Elliptocytes FEW 10/11 10/10 [id number] Chemistry Sodium (137 - 145 mmol/L) 142 Potassium (3.5 - 5.1 mmol/L) 4.3 Chloride (98 - 107 mmol/L) 105 Carbon Dioxide (22 - 30 mmol/L) 27 Anion Gap (5 - 16) 10 BUN (9 - 20 mg/dL) 18 Creatinine (0.7 - 1.2 mg/dL) 1.0 Estimated GFR (>60 ml/min) > 60 BUN/Creatinine Ratio (7 - 25 %) 18.0 Hemoglobin A1c (4.2 - 5.8 %) 7.0 H Troponin I (<0.11 ng/ml) < 0.01 Triglycerides (<150 mg/dL) 59 Cholesterol (< 200 MG/DL) 92 LDL Cholesterol, Calc (65 - 129 mg/dL) 43 L HDL Cholesterol (40 - 60 mg/dL) 38 L Cholesterol/HDL Ratio (0.00 - 4.88 %) 2 TSH &T3 &Free T4 Intrp (0.27 - 4.20 uIU/mL) 1.190 Hematology CBC w Diff NO MAN DIFF REQ WBC (4.8 - 10.8 /CUMM) 6.0 RBC (4.70 - 6.10 /CUMM) 3.80 L Hgb (14.0 - 18.0 G/DL) 8.3 L Hct (42 - 52 %) 26.4 L MCV (80.0 - 94.0 FL) 69.5 L MCH (27.0 - 31.0 PG) 21.8 L MCHC (33.0 - 37.0 G/DL) 31.3 L RDW (11.5 - 14.5 %) 18.0 H Plt Count (130 - 400 /CUMM) 232 MPV (7.4 - 10.4 FL) 9.9 Gran % (42.2 - 75.2 %) 57.4 Lymphocytes % (20.5 - 51.1 %) 28.9 Monocytes % (1.7 - 9.3 %) 10.9 H Eosinophils % (0 - 5 %) 2.5 Basophils % (0.0 - 2.0 %) 0.3 Absolute Granulocytes (1.4 - 6.5 /CUMM) 3.5 Absolute Lymphocytes (1.2 - 3.4 /CUMM) 1.7 Absolute Monocytes (0.10 - 0.60 /CUMM) 0.7 H Absolute Eosinophils (0.0 - 0.7 /CUMM) 0.1 Absolute Basophils (0.0 - 0.2 /CUMM) 0 10/10 10/10 1255 1202 Chemistry Sodium (137 - 145 mmol/L) 140 Potassium (3.5 - 5.1 mmol/L) 4.3 Chloride (98 - 107 mmol/L) 102 Carbon Dioxide (22 - 30 mmol/L) 27 Anion Gap (5 - 16) 11 BUN (9 - 20 mg/dL) 21 H Creatinine (0.7 - 1.2 mg/dL) 1.0 Estimated GFR (>60 ml/min) > 60 BUN/Creatinine Ratio (7 - 25 %) 21.0 Glucose (65 - 99 mg/dL) 183 H Calcium (8.4 - 10.2 mg/dL) 9.7 Total Bilirubin (0.2 - 1.3 mg/dL) 0.3 AST (17 - 59 U/L) 16 L ALT (21 - 72 U/L) 20 L Alkaline Phosphatase (< 127 U/L) 74 Troponin I (<0.11 ng/ml) < 0.01 Total Protein (6.3 - 8.2 g/dL) 6.3 Albumin (3.5 - 5.0 g/dL) 3.7 Globulin (1.9 - 4.2 gm/dL) 2.6 Albumin/Globulin Ratio (1.1 - 2.2 %) 1.4 Coagulation PT (9.4 - 12.5 SEC) 13.4 H INR (0.90 - 1.17) 1.23 H APTT (25 - 37 SEC) 30 Hematology CBC w Diff NO MAN DIFF REQ WBC (4.8 - 10.8 /CUMM) 5.3 RBC (4.70 - 6.10 /CUMM) 3.91 L Hgb (14.0 - 18.0 G/DL) 8.4 L Hct (42 - 52 %) 27.4 L MCV (80.0 - 94.0 FL) 69.9 L MCH (27.0 - 31.0 PG) 21.6 L MCHC (33.0 - 37.0 G/DL) 30.8 L RDW (11.5 - 14.5 %) 17.8 H Plt Count (130 - 400 /CUMM) 243 MPV (7.4 - 10.4 FL) 10.0 Gran % (42.2 - 75.2 %) 61.0 Lymphocytes % (20.5 - 51.1 %) 27.0 Monocytes % (1.7 - 9.3 %) 10.2 H Eosinophils % (0 - 5 %) 1.5 Basophils % (0.0 - 2.0 %) 0.3 Absolute Granulocytes (1.4 - 6.5 /CUMM) 3.2 Absolute Lymphocytes (1.2 - 3.4 /CUMM) 1.4 Absolute Monocytes (0.10 - 0.60 /CUMM) 0.5 Absolute Eosinophils (0.0 - 0.7 /CUMM) 0.1 Absolute Basophils (0.0 - 0.2 /CUMM) 0 Urines Urine Color (YEL,AMB,STR) YEL Urine Clarity (CLEAR) CLEAR Urine pH (5.0 - 8.0) 6.0 Ur Specific [place] (1.001 - 1.035) 1.025 Urine Protein (NEG,<30 MG/DL) NEG Urine Ketones (NEG) NEG Urine Nitrite (NEG) NEG Urine Bilirubin (NEG) NEG Urine Urobilinogen (0.1 - 1.0 EU/dl) 0.2 Ur Leukocyte Esterase (NEG) NEG Ur Microscopic EXAM NOT REQUIRED Urine Hemoglobin (NEG) NEG Urine Glucose (N MG/DL) NEG
[2017-10-12 22:12] VITALS: BP 130/78
[2017-10-13 07:05] VITALS: BP 118/58
[2017-10-13 07:55] LABS: ABSOLUTE BASOPHIL COUNT 0 /CUMM (0.0-0.2); ABSOLUTE EOSINOPHIL COUNT 0.1 /CUMM (0.0-0.7); ABSOLUTE GRANULOCYTE CT 3.4 /CUMM (1.4-6.5); ABSOLUTE LYMPH COUNT 1.7 /CUMM (1.2-3.4); ABSOLUTE MONOCYTE COUNT 0.6 /CUMM (0.10-0.60); BASOPHIL % 0.4 % (0.0-2.0); EOSINOPHIL % 2.4 % (0-5); GRANULOCYTE % 58.2 % (42.2-75.2); HEMATOCRIT 25.9 % (42-52); MEAN CORPUSCULAR HGB 21.7 PG (27.0-31.0); MEAN CORPUSCULAR HGB CONC 31.2 G/DL (33.0-37.0); MEAN CORPUSCULAR VOLUME 69.4 FL (80.0-94.0); MEAN PLATELET VOLUME 10.1 FL (7.4-10.4); PLATELET COUNT 224 /CUMM (130-400); RBC DISTRIBUTION WIDTH 18.1 % (11.5-14.5); RED BLOOD CELL CT 3.73 /CUMM (4.70-6.10); WHITE BLOOD CELL COUNT 5.9 /CUMM (4.8-10.8)
--- NOTE | 2017-10-13 08:03 | PN- Housestaff ---
Christopher PACE,Marina 10/13/17 0803: Subjective Follow-up For: ANEMIA 2/2 GI BLEED OLD LBBB HISTORY CAD SP STENTING Complaints: no complaints Tele-Events Since Last Visit: SB/first degree heart block rates 48-75 with a OR .28 maximum, max heart rate at 2218 of 120's, then decreased directly after. Subjective: Patient seen and examined. States that he has no complaints. Today is the 2-3 day he is off plavix (10/11 morning at 815am was last dose). He admits that he still has some shortness of breath on exertion which is normal for him as he has heart failure but he denies chest pain, bloody stools, abdominal pain, nausea or vomiting. He was witnessed walking around the room comfortably in the morning. Review of Systems Constitutional: Reports: no symptoms. Cardiovascular: Reports: no symptoms. Respiratory: Reports: short of breath (on exertion, mild). Gastrointestinal: Reports: no symptoms. Genitourinary: Reports: no symptoms. Musculoskeletal: Reports: no symptoms. Skin: Reports: no symptoms. Neurological/Psychological: Reports: no symptoms. Objective Last 24 Hrs of Vital Signs/I&O Vital Signs Date Time Temp Pulse Resp B/P B/P Pulse O2 O2 Flow FiO2 Mean Ox Delivery Rate 10/13 0842 66 118/58 10/13 0842 66 118/58 10/13 0842 66 118/58 10/13 0705 98.2 66 12 118/58 97 Room Air 10/12 2212 98.4 76 16 130/78 93 10/12 2030 98 138/72 10/12 1404 98.1 72 18 120/58 96 Room Air Intake & Output 10/13 1600 10/13 0800 10/13 0000 Intake Total 280 220 Output Total Balance 280 220 Intake, Oral 280 220 Patient 222 lb Weight Physical Exam General Appearance: Alert, Cooperative, No Acute Distress Skin: No Rashes, No Breakdown, No Significant Lesion Skin Temp/Moisture Exam: Warm/Dry Sepsis Skin Exam (color): Normal for Ethnicity HEENT: Atraumatic, PERRLA, EOMI, Mucous Membr. moist/pink Cardiovascular: Regular Rate, Normal S1, Normal S2 Lungs: Clear to Auscultation, Normal Air Movement Abdomen: Normal Bowel Sounds, Soft, No Tenderness Neurological: Normal Gait, Normal Speech Current Medications: Current Medications Sig/[place] Start time Last Medication Dose Route Stop Time Status Admin Acetaminophen 650 MG Q6P PRN 10/10 1645 AC PO Amlodipine Besylate 5 MG DAILY 10/11 0900 AC 10/13 PO 0842 Atorvastatin Calcium 40 MG 1700 10/11 1700 AC 10/12 PO 1649 Ferrous Sulfate 325 MG BID 10/12 1331 DC 10/13 PO 0842 Gabapentin 100 MG QPM 10/10 2100 AC 10/12 PO 2027 Hydrochlorothiazide 25 MG DAILY 10/11 09 AC 10/13 PO 0842 Insulin Aspart 0 TIDAC 10/11 08 AC 10/12 SC 1227 Losartan Potassium 50 MG DAILY 10/11 899 AC 10/13 PO 0842 Metoprolol Succinate 50 MG DAILY@2200 10/11 2200 AC 10/12 PO 2030 Multivitamins 1 TAB DAILY 10/11 899 AC 10/13 PO 0842 Pantoprazole Sodium 40 MG DAILY 10/11 899 AC 10/13 IV 0842 Tamsulosin HCl 0.4 MG DAILY 10/11 899 AC 10/13 PO 0842 Last 24 Hrs of Lab/Sudhakar Results Last 24 Hrs of Labs/Mics: Laboratory Tests 10/13/17 0645: Anion Gap 10, Estimated GFR > 60, BUN/Creatinine Ratio 22.0, CBC w Diff NO MAN DIFF REQ, RBC 3.73 L, MCV 69.4 L, MCH 21.7 L, MCHC 31.2 L, RDW 18.1 H, MPV 10.1, Gran % 58.2, Lymphocytes % 28.2, Monocytes % 10.8 H, Eosinophils % 2.4, Basophils % 0.4, Absolute Granulocytes 3.4, Absolute Lymphocytes 1.7, Absolute Monocytes 0.6, Absolute Eosinophils 0.1, Absolute Basophils 0 Assessment/Plan Assessment: 86 year old man Mohawk speaker with PMH of HTN, HLD, AAA, insulin-dependent diabetes mellitus, anemia, CAD s/p stent in 2003 and most recently in 2016 on full dose aspirin and plavix presented with symptoms of symptomatic anemia and left bundle branch block. On admission hemoglobin was 8.6. CTA showed small distal deep left rectus abdominal hematoma. Patient has no history of trauma to the abdomen or abdominal pain. His stool guaiac was positive. Overnight the patient has been stable. Telemetry shows bradycardia with first-degree AV block unchanged since yesterday. Cardiology saw the patient yesterday and stated the LBBB seen on EKG is actually old. Vitals are otherwise stable, patient is normotensive at 118/58. He did have one bout of increaed heart rate overnight to 120 but no symptoms or events noted at the time, patient may have been using the bathroom as noted by nursing. 1. Left bundle branch block in stenting of coronary artery disease status post multiple angioplasty and stent placements and hypertension -The patient's activity therapy specialist, Dr. Campbell has been consulted. The patient has 2 stents, one in the circumflex marginal and the other in the proximal LAD. The patient has a history of stent restenosis. He last had a stress test in April 2016 which showed a small to moderate area of focal anteroapical ischemia. At that point his ejection fraction was 27% down from 39% from the previous reading. Also seen was diffuse moderate to severe hypokinesis. The left bundle branch block has been known to the patient's activity therapy specialist. He has been cleared for GI workup. -We will have the patient follow up with his PCP and activity therapy specialist outpatient for recommencement of his plavix and ASA. For now he has been instructed to not take either. -Troponins negative -As patient has had fairly recent echo, no echo is warranted during this admission. -We can continue the patient's outpatient cardiac medications of amlodipine 5 mg , metoprolol 50 mg, rosuvastatin 10 mg, valsartan 160 mg, hydrochlorothiazide 25 mg. However we will hold aspirin and Plavix for GI bleed. In hospital we are giving losartan and atorvastatin instead of valsartan and rosuvastatin. 2. DM: Overnight blood sugars are between 147 to 127. Hemoglobin A1c is 7.0. -Accuchecks tidac -Novolog insulin sliding scale 3. Symptomatic anemia: Patient was admitted with symptoms of anemia including dizziness, chest pain, some shortness of breath. Guiaic positive but denies melena. INR is 1.3. Hemoglobin today is again 8.1. Nurse denies any overt signs of blood on fecal exam. Iron tests showed iron level 21, ferritin 7.9, TIBC 376. Iron was started yesterday but I have stopped it as patient should not be on iron for 3 days before a colonoscopy. He is instructed to start it again on October 17, 2017 after the colonoscopy. -Continue PPI 40 mg omeprazole outpatient. -Monitor CBC - stable today -Type and screen done -No transfusion at this time hgb goal >8 with CAD -GI saw the patient stated that he would need EGD/colonoscopy to identify the source of bleeding but can only do so after being off ASA and plavix for 5 days. He last received plavix on October 11 at 8:15am. The activity therapy specialist has cleared the patient for these procedures Thursday which will be 5 days later. We have prescribed GOLYTELY prep with instructions. Dr. Hernandez's office will call the patient to schedule for this Thursday and the family is aware of this. We have ascertained patient's understanding with use of the translation phone, per diem interpreter number [id number]. -We did stool H. pylori antigen today and he will follow up on those results with Dr. Hernandez on thursday. -It was suspected that patient had a hematoma that was the cause for his drop in hemoglobin. However surgery saw the patient and believes that on radiology, there is no hematoma but instead scar tissue from a previous surgery. Surgery has signed off. Diabetic diet DVT prophylaxis Alps Full code Problem List: 1. half-way (current) use of anticoagulants 2. GI bleeding 3. Symptomatic anemia Pain Ratin Pain Location: na Pain Goal: Remain pain free Pain Plan: na Tomorrow's Labs & Rationales: Natasha South 10/13/17 1054: Attending MD Review Statement Attending Statement Attending MD Statement: examined this patient, discuss w/resident/PA/RETAIL LEASING AGENT, agreed w/resident/PA/RETAIL LEASING AGENT, discussed with family, reviewed EMR data (avail), discussed with nursing, discussed with case mgmt, reviewed images, amended to note Attending Assessment/Plan: spanish interpreter/translator [id number]. Patient has past medical history of CAD s/p stent placement 2015. Patient admitted here for dizzness 2/2 acute blood loss anemia possible GI bleed. Patient denies any new complaints. Cardiology and GI consulted during the hospital stay. Plan for colonscopy as per GI on coming thursday. Antiplatelet therapy as per Cardiology/GI. Scripts of bowel prep at discharge as per GI. Discharge instructions given to patient.
[2017-10-13 08:42] VITALS: BP 118/58
[2017-10-13] MEDS ORDERED: FERROUS SULFAT325 M2 PO (09:37)
[2017-10-13] MEDS ORDERED: OMEPRAZOLE40 M1 PO (09:37)
[2017-10-13] MEDS ORDERED: GOLYTELY SOLU4000 ML PO (09:39)
--- NOTE | 2017-10-13 09:53 | Patient Discharge Instructions ---
Discharge Instructions General Discharge Information You were seen/treated for: GI bleed You had these procedures: xray CTA Watch for these problems: Further GI bleed, dizziness, loss of consciousness Special Instructions: 1. Please follow up with ladle puller Dr. Ruiz for colonoscopy Thursday. See preparation directions below. Also follow up with her on the results of the Helicobacter pylori stool antigen test. 2. Please follow up with your PCP Dr. Samaniego and your Wall Insulation Sprayer Dr. Campbell in one week for when to restart aspirin and plavix. FOR NOW DO NOT TAKE ASPIRIN OR PLAVIX. 3. Please restart iron tablets on ThursdayOctober 17 after colonoscopy. GOLYTELY INSTRUCTIOSN: 1. 1 Day Before Your GoLYTELY Colonoscopy Procedure: Begin a clear liquid diet. You can have water, clear broth or bouillon, coffee or tea (no milk or creamer), Gatorade, Powerade, Pedialyte, carbonated and non carbonated soft drinks, Rich-Aid or other fruit flavored drinks, Jell-O, popsicles and hard candy. No red or purple fluids are allowed. Drink at least 8 glasses of water of clear liquids throughout the day. At 6 PM: Refrigerate the solution. Begin drinking 3 liters of the GoLYTELY solution (75% of the bottle). Drink 8 ounces every 10 minutes until completed. If you vomit, wait 30 minutes. After that, begin drinking again taking 6 ounces every 15 minutes. Rapidly drinking a glassful is better than sipping an ounce or two at a time. A straw may be helpful to use when drinking the solution to get it down easier. Bowel movements may begin to occur about one hour after drinking the first glass and may continue two to four hours after you finish the last glass. Feelings of bloating, nausea and chills are common after the first few glasses. This is temporary and will soon disappear once bowel movements begin. If nausea becomes acute, stop drinking the solution for 30 minutes, then resume drinking every 15 minutes as before. Refrigerate the remaining 1 liter (25%) of the GoLYTELY 2. The Day of the GoLYTELY Colonoscopy Procedure: 5 hours before your appointment time: Drink the remaining 1 liter (the rest of the bottle) of GoLYTELY. Continue clear liquid diet including water. 3 hours before your appointment: Stop drinking liquids. (You may take your morning medicines with 4 ounces of water) Diet Continue normal diet: No Recommended Diet: Regular diet until Thursday at midnight. Activity Full Activity/No Limits: Yes Acute Coronary Syndrome Inclusion Criteria At DC or during hospital stay patient has or had the following: ACS DIAGNOSIS No Discharge Core Measures Meds if any: Prescribed or Continued at Discharge Meds if any: NOT Prescribed or Continued at Discharge Congestive Heart Failure Inclusion Criteria At DC or during hospital stay patient has or had the following: CHF DIAGNOSIS No Discharge Core Measures Meds if any: Prescribed or Continued at Discharge Meds if any: NOT Prescribed or Continued at Discharge Cerebrovascular accident Inclusion Criteria At DC or during hospital stay patient has or had the following: CVA/TIA Diagnosis No Discharge Core Measures Meds if any: Prescribed or Continued at Discharge Meds if any: NOT Prescribed or Continued at Discharge Venous thromboembolism Inclusion Criteria VTE Diagnosis No VTE Type NONE VTE Confirmed by (Test) NONE Discharge Core Measures - Per Current guidelines, there needs to be overlap - treatment for the first 5 days of Warfarin therapy. - If discharged on Warfarin prior to 5 days of - overlap therapy, the patient will need to be - assessed for post discharge needs including - *Post discharge parental anticoagulation - *Warfarin and/or parental anticoagulation education - *Follow up date to check INR post discharge At least 5 days overlap therapy as Inpatient No Meds if any: Prescribed or Continued at Discharge Note: Overlap Therapy is Warfarin and Anticoagulant Meds if any: NOT Prescribed or Continued at Discharge
--- NOTE | 2017-10-20 22:10 | Discharge Summary ---
Visit Information Visit Dates Admission Date: 10/10/17 Discharge Date: 10/13/17 Hospital Course Course Attending Physician: Natasha Ponce MD Primary Care Physician: Pranay Samaniego MD Hospital Course: 86 year old man Romanian speaker with PMH of HTN, HLD, AAA, insulin-dependent diabetes mellitus, anemia, CAD s/p stent in 2002 and most recently in 2015 on full dose aspirin and plavix presented with symptoms of symptomatic anemia and left bundle branch block. On admission hemoglobin was 8.6. CTA showed small distal deep left rectus abdominal hematoma. Patient has no history of trauma to the abdomen or abdominal pain. His stool guaiac was positive. Telemetry shows bradycardia with first-degree AV block. Cardiology saw the patient and stated the LBBB seen on EKG is actually old. Vitals are otherwise stable, patient is normotensive. 1. Left bundle branch block in stenting of coronary artery disease status post multiple angioplasty and stent placements and hypertension -The patient's licensed loan officer, Dr. Campbell was consulted. The patient has 2 stents, one in the circumflex marginal and the other in the proximal LAD. The patient has a history of stent restenosis. He last had a stress test in April 2016 which showed a small to moderate area of focal anteroapical ischemia. At that point his ejection fraction was 27% down from 39% from the previous reading. Also seen was diffuse moderate to severe hypokinesis. The left bundle branch block has been known to the patient's licensed loan officer. He has been cleared for GI workup. -Patient will follow up with his PCP and licensed loan officer outpatient for recommencement of his plavix and ASA. For now he has been instructed to not take either. -Troponins negative -As patient has had fairly recent echo, no echo was warranted during this admission. -We continued the patient's outpatient cardiac medications of amlodipine 5 mg, metoprolol 50 mg, rosuvastatin 10 mg, valsartan 160 mg, hydrochlorothiazide 25 mg. However we held aspirin and Plavix for GI bleed. In hospital we are giving losartan and atorvastatin instead of valsartan and rosuvastatin. -He did have one bout of increased heart rate during this admission to 120 but no symptoms or events noted at the time, patient may have been using the bathroom as noted by nursing. 2. DM: blood sugars are between 147 to 127. Hemoglobin A1c is 7.0. -Accuchecks tidac -Novolog insulin sliding scale 3. Symptomatic anemia: Patient was admitted with symptoms of anemia including dizziness, chest pain, some shortness of breath. Guiaic positive but denies melena. INR is 1.3. Hb stable for most days. Nurse denies any overt signs of blood on fecal exam. Iron tests showed iron level 21, ferritin 7.9, TIBC 376. Iron was started but was stopped after a day as patient should not be on iron for 3 days before a colonoscopy. He is instructed to start it again on October 17, 2017 after the colonoscopy. -Continue PPI 40 mg omeprazole outpatient. -Type and screen done -No transfusion at this time hgb goal >8 with CAD -GI saw the patient and stated that he would need EGD/colonoscopy to identify the source of bleeding but can only do so after being off ASA and plavix for 5 days. He last received plavix on October 11 at 8:15am. The licensed loan officer has cleared the patient for these procedures Thursday which will be 5 days later. We prescribed GOLYTELY prep with instructions. Dr. Hernandez's office will call the patient to schedule for this Thursday and the family is aware of this. We have ascertained patient's understanding with use of the translation phone, free lance artist number [phone]. -We did stool H. pylori antigen and he will follow up on those results with Dr. Hernandez on thursday. -It was suspected that patient had a hematoma that was the cause for his drop in hemoglobin. However surgery saw the patient and believes that on radiology, there is no hematoma but instead scar tissue from a previous surgery. Surgery has signed off. Diabetic diet DVT prophylaxis Alps Full code Allergies: Coded Allergies: NO KNOWN ALLERGIES (10/10/13) Disposition Summary Disposition Principal Diagnosis: symptomatic anemia Additional Diagnosis: left bundle branch block Discharge Disposition: home or self care Discharge Instructions General Discharge Information Code Status: Full Code Patient's Diet: Regular diet until Thursday at midnight. Patient's Activity: as tolerated Follow-Up Instructions/Appts: 1. Please follow up with histological illustrator Dr. Ruiz for colonoscopy Thursday. See preparation directions below. Also follow up with her on the results of the Helicobacter pylori stool antigen test. 2. Please follow up with your PCP Dr. Samaniego and your Health And Nutrition Specialist Dr. Campbell in one week for when to restart aspirin and plavix. FOR NOW DO NOT TAKE ASPIRIN OR PLAVIX. 3. Please restart iron tablets on ThursdayOctober 17 after colonoscopy. GOLYTELY INSTRUCTIOSN: 1. 1 Day Before Your GoLYTELY Colonoscopy Procedure: Begin a clear liquid diet. You can have water, clear broth or bouillon, coffee or tea (no milk or creamer), Gatorade, Powerade, Pedialyte, carbonated and non carbonated soft drinks, Rich-Aid or other fruit flavored drinks, Jell-O, popsicles and hard candy. No red or purple fluids are allowed. Drink at least 8 glasses of water of clear liquids throughout the day. At 6 PM: Refrigerate the solution. Begin drinking 3 liters of the GoLYTELY solution (75% of the bottle). Drink 8 ounces every 10 minutes until completed. If you vomit, wait 30 minutes. After that, begin drinking again taking 6 ounces every 15 minutes. Rapidly drinking a glassful is better than sipping an ounce or two at a time. A straw may be helpful to use when drinking the solution to get it down easier. Bowel movements may begin to occur about one hour after drinking the first glass and may continue two to four hours after you finish the last glass. Feelings of bloating, nausea and chills are common after the first few glasses. This is temporary and will soon disappear once bowel movements begin. If nausea becomes acute, stop drinking the solution for 30 minutes, then resume drinking every 15 minutes as before. Refrigerate the remaining 1 liter (25%) of the GoLYTELY 2. The Day of the GoLYTELY Colonoscopy Procedure: 5 hours before your appointment time: Drink the remaining 1 liter (the rest of the bottle) of GoLYTELY. Continue clear liquid diet including water. 3 hours before your appointment: Stop drinking liquids. (You may take your morning medicines with 4 ounces of water) Medications at Discharge Discharge Medications: Stop taking the following medications: Clopidogrel Bisulfate (Clopidogrel) 75 MG TABLET ORAL DAILY Qty = 90 Continue taking these medications: Metformin HCl (Glucophage) 1,000 MG TABLET 1 Tablet ORAL TWICE DAILY Glimepiride (Glimepiride) 4 MG TABLET 1 Tablet ORAL TWICE DAILY Qty = 60 Amlodipine Besylate (Amlodipine Besylate) 5 MG TABLET 1 Tablet ORAL DAILY Qty = 90 Comments: Last Taken:10/13/17 Time:0830 Tamsulosin HCl (Tamsulosin HCl) 0.4 MG CAP.ER.24H 1 Capsule ORAL DAILY Qty = 30 Comments: Last Taken:10/13/17 Time:0830 Gabapentin (Gabapentin) 100 MG CAPSULE 1 Capsule ORAL Every night Qty = 90 Comments: Last Taken:10/12/17 Time:10PM Metoprolol Succinate (Metoprolol Succinate) 50 MG TAB.ER.24H 1 Tablet ORAL DAILY Qty = 90 Comments: Last Taken:10/13/17 Time:0830 Rosuvastatin Calcium (Crestor) 10 MG TABLET 1 Tablet ORAL DAILY Qty = 90 Comments: Last Taken:10/13/17 Time:0830 Valsartan/Hydrochlorothiazide (Valsartan-Hctz 160-25 MG Tab) 160 MG-25 MG TABLET 1 Tablet ORAL DAILY Qty = 90 Comments: Last Taken:10/13/17 Time:0830 Start taking the following new medications: Ferrous Sulfate (Ferrous Sulfate) 325 MG (65 MG IRON) TABLET.DR 325 Milligram ORAL TWICE DAILY Qty = 60 No Refills Instructions: DO NOT START TAKING THIS MEDICATION UNTIL Thursday10/17/2017 (AFTER THE COLONOSCOPY). Comments: Last Taken:10/13/17 Time:0830 Omeprazole (Omeprazole) 40 MG CAPSULE.DR 1 Capsule ORAL DAILY Qty = 30 No Refills Comments: Last Taken:10/13/17 Time:0730 Peg 3350/Na Sulf,Bicarb,Cl/KCl (Golytely Solution) 236-22.74G SOLN.RECON 1 Unit ORAL GIVE ONCE Qty = 1 No Refills Instructions: Do not eat any solid food after Thursday at midnight. Start colonscopy prep on morning. Please refer to instructions given at hospital. Copies To: Joseph PACE,Smiley; Danette PACE,Pranay Alfaro; Adrian PACE,Maldonado Harrison
[2017-10-28] MEDS ORDERED: ASPIRIN EC81 M1 PO (14:14)
== END 2017-10-13 12:05 | DRG 378 ==
LOC: ERH 11:04 → 1NO 13:52 → ERHI 13:52 → ENRESERV 16:43 → 1NO 19:45 → ENPENDDIS 10-13 11:36 → 1NO 10-13 12:05
PROVIDERS: Physician Assistant Medical; Preventive Medicine Addiction Medicine; Preventive Medicine Public Health & General Preventive Medicine; Student in an Organized Health Care Education/Training Program
DX: K92.2 Gastrointestinal hemorrhage, unspecified (principal); D62 Acute posthemorrhagic anemia; I71.2 Thoracic aortic aneurysm, without rupture; E11.9 Type 2 diabetes mellitus without complications; D50.9 Iron deficiency anemia, unspecified; E78.5 Hyperlipidemia, unspecified; I10 Essential (primary) hypertension; I25.10 Atherosclerotic heart disease of native coronary artery without angina pectoris; I44.7 Left bundle-branch block, unspecified; S30.1XXA Contusion of abdominal wall, initial encounter; Z95.5 Presence of coronary angioplasty implant and graft; Z79.84 Long term (current) use of oral hypoglycemic drugs; Z79.01 Long term (current) use of anticoagulants; Z79.82 Long term (current) use of aspirin; K80.20 Calculus of gallbladder without cholecystitis without obstruction
CPT/HCPCS: 1NP; 36415; 36592; 74174; 81003; 82436; 93005; 93010; J1650

== ENCOUNTER 2017-10-30 01:18 | Inpatient (IN) | payer OTHER, MEDICARE ==
[~2017-10-30] VITALS: Ht 180.3 cm; Wt 97.3 kg
[~2017-10-30 01:18] MED LIST changes: +AMLODIPINE BESYL5 M1 PO; +ASPIRIN EC81 M1 PO; +CLOPIDOGREL75 M1 PO; +CRESTOR10 M1 PO; +FERROUS SULFAT325 M2 PO; +GABAPENTIN100 M2 PO; +GLIMEPIRIDE4 M1 PO; +GOLYTELY SOLU4000 ML PO; +METOPROLOL SUCC50 M2 PO; +OMEPRAZOLE40 M1 PO; +TAMSULOSIN HCL0.4 M1 PO; +VALSARTAN-HCTZ1 EAC2 PO
[2017-10-30 18:38] VITALS: BP 142/64
[2017-10-30 22:00] VITALS: BP 144/71
[2017-10-30 23:19] VITALS: BP 136/65
[2017-10-31 02:32] VITALS: BP 145/65
[2017-10-31 07:31] VITALS: BP 139/60
[2017-10-31 08:45] LABS: ABSOLUTE BASOPHIL COUNT 0 /CUMM (0.0-0.2); ABSOLUTE EOSINOPHIL COUNT 0 /CUMM (0.0-0.7); ABSOLUTE GRANULOCYTE CT 8.5 /CUMM (1.4-6.5); ABSOLUTE LYMPH COUNT 1.5 /CUMM (1.2-3.4); ABSOLUTE MONOCYTE COUNT 0.9 /CUMM (0.10-0.60); BASOPHIL % 0.3 % (0.0-2.0); EOSINOPHIL % 0 % (0-5); HEMATOCRIT 28.9 % (42-52); MEAN CORPUSCULAR HGB 22.8 PG (27.0-31.0); MEAN CORPUSCULAR HGB CONC 31.3 G/DL (33.0-37.0); MEAN CORPUSCULAR VOLUME 72.9 FL (80.0-94.0); MEAN PLATELET VOLUME 10.5 FL (7.4-10.4); PLATELET COUNT 211 /CUMM (130-400); RBC DISTRIBUTION WIDTH 24.8 % (11.5-14.5); RED BLOOD CELL CT 3.96 /CUMM (4.70-6.10)
--- NOTE | 2017-10-31 10:53 | PN- General Surgery ---
See Addendum Subjective Subjective: Patient did well overnight without complaints. no nausea this morning. He feels his bowels moving but has not passed gas yet. no fevers or chills, pain controlled Review of Systems Constitutional: Denies: chills, fever, malaise. Cardiovascular: Denies: chest pain, edema, palpitations, peripheral edema. Respiratory: Denies: cough, short of breath. Gastrointestinal: Reports: bloating, distention. Denies: abdominal pain, nausea, vomiting. Objective Vital Signs and I&Os Vital Signs Date Time Temp Pulse Resp B/P B/P Pulse O2 O2 Flow FiO2 Mean Ox Delivery Rate 10/31 08 Nasal 1.0L Cannula 10/31 0731 98.3 58 18 139/60 99 Nasal 1.5L Cannula 10/31 0232 98.4 72 18 145/65 98 Nasal 2.0L Cannula 10/31 0000 Nasal 1.5L Cannula 10/30 2319 99.1 77 18 136/65 97 Nasal 1.5L Cannula 10/30 2200 98.6 77 18 144/71 99 Nasal 1.5L Cannula 10/30 1838 98.9 69 20 142/64 94 Nasal 1.5L Cannula 10/30 1838 94 Nasal 2.0L Cannula Intake & Output 10/31 1600 10/31 0800 10/31 0000 10/30 1600 10/30 0800 10/30 0000 Intake Total 800 285 Output Total 900 650 Balance -100 -365 Intake, IV 800 285 Intake, Oral 0 Number 0 Bowel Movements Output, Urine 900 650 Patient 222 lb Weight Weight Bed scale Measurement Method Physical Exam: patient is alert and oriented, sitting in chair with no complaints, family is present for translation chest- CTA symmetric Heart- RRR without MRG Abdomen - tenderness throughout incisions CDI, + BS extremities soft without edema Admission Lab Results I reviewed the following labs: Laboratory Tests 10/31 10/31 05 0746 0719 1425 Blood Gas pH (7.35 - 7.45 PH) 7.39 pCO2 (35 - 45 TORR) 40 pO2 (80 - 100 TORR) 222 H HCO3 (21 - 28 MEQ/L) 24 ABG O2 Sat (Measured) (>96.0 %) 98.0 P-50 (Temp Corrected) N Carboxyhemoglobin (1.5 - 5.0 %) 1.0 L O2 Concentration % 100 Temperature (97.0 - 100.0 FARH) 37.2 L O2 Delivery Method O.R. Chemistry Sodium (137 - 145 mmol/L) 142 Potassium (3.5 - 5.1 mmol/L) 4.2 Chloride (98 - 107 mmol/L) 105 Carbon Dioxide (22 - 30 mmol/L) 25 Anion Gap (5 - 16) 11 BUN (9 - 20 mg/dL) 15 Creatinine (0.7 - 1.2 mg/dL) 0.9 Estimated GFR (>60 ml/min) > 60 BUN/Creatinine Ratio (7 - 25 %) 16.7 Hematology CBC w Diff Pending WBC Pending RBC Pending Hgb Pending Hct Pending MCV Pending MCH Pending MCHC Pending RDW Pending Plt Count Pending MPV Pending Miscellaneous Phlebotomy Draw Site ALMA Assessment/Plan Assessment/Plan POD 1 lap assisted right hemicolectomy feels well, no nausea and active BS trial of clears for dinner encourage ambulation D/C deleon and hep lock fluids tomorrow if progressing well Core Measures Venous Thromboembolism VTE Risk Factors Surgery No Mechanical VTE Prophylaxis d/t Other No VTE Pharm Prophylaxis d/t Other
[2017-10-31 11:01] LABS: WHITE BLOOD CELL COUNT 10.9 /CUMM (4.8-10.8)
[2017-10-31 14:11] VITALS: BP 140/56
[2017-10-31 22:46] VITALS: BP 163/78
[2017-11-01 06:57] VITALS: BP 152/77
--- NOTE | 2017-11-01 08:39 | Admission Core Measures ---
Acute Coronary Syndrome (CM) ACS Core Measures Acute Coronary Syndrome Diagnosis No Congestive Heart Failure (NEW) CHF Core Measures Congestive Heart Failure Diagnosis No Cerebrovascular Accident (NEW) CVA Core Measures CVA/TIA Diagnosis No Venous Thromboembolism VTE Core Maggie (View Protocol) VTE Risk Factors Surgery No Mechanical VTE Prophylaxis d/t N/A MechProphylax Ordered No VTE Pharm Prophylaxis d/t NA PharmProphylax ordered Problem List As ranked by this Provider includes Assessment & Plan 1. Colon cancer HOME MEDS Home Med List Amlodipine Besylate 5 MG TABLET 1 TAB PO DAILY BP (Reported) Aspirin (Ecotrin*) 81 MG TABLET.DR 1 TAB PO DAILY CARDIAC (Reported) Ferrous Sulfate 325 MG (65 MG IRON) TABLET.DR 325 MG PO BID ANEMIA Gabapentin 100 MG CAPSULE 1 CAP PO QPM NERVE PAIN (Reported) Glimepiride 4 MG TABLET 1 TAB PO BID DM (Reported) Metformin HCl (Glucophage) 1,000 MG TABLET 1 TAB PO BID DM (Reported) Metoprolol Succinate 50 MG TAB.ER.24H 1 TAB PO DAILY HEART/BP (Reported) Omeprazole 40 MG CAPSULE.DR 1 CAP PO DAILY GASTRIC PROTECTION Peg 3350/Na Sulf,Bicarb,Cl/KCl (Golytely Solution) 236-22.74G SOLN.RECON 1 UNIT PO ONCE COLONOSCOPY PREP Rosuvastatin Calcium (Crestor) 10 MG TABLET 1 TAB PO DAILY CHOLESTEROL ( Reported) Tamsulosin HCl 0.4 MG CAP.ER.24H 1 CAP PO DAILY PROSTATE (Reported) Valsartan/Hydrochlorothiazide (Valsartan-Hctz 160-25 MG Tab) 160 MG-25 MG TABLET 1 TAB PO DAILY BP (Reported)
[2017-11-01 08:42] LABS: ABSOLUTE BASOPHIL COUNT 0 /CUMM (0.0-0.2); ABSOLUTE EOSINOPHIL COUNT 0.1 /CUMM (0.0-0.7); ABSOLUTE LYMPH COUNT 1.6 /CUMM (1.2-3.4); ABSOLUTE MONOCYTE COUNT 0.8 /CUMM (0.10-0.60); BASOPHIL % 0.5 % (0.0-2.0); EOSINOPHIL % 0.6 % (0-5); GRANULOCYTE % 70.4 % (42.2-75.2); HEMATOCRIT 29.4 % (42-52); MEAN CORPUSCULAR HGB 22.8 PG (27.0-31.0); MEAN CORPUSCULAR HGB CONC 31.1 G/DL (33.0-37.0); MEAN CORPUSCULAR VOLUME 73.3 FL (80.0-94.0); PLATELET COUNT 198 /CUMM (130-400); RBC DISTRIBUTION WIDTH 25.2 % (11.5-14.5); RED BLOOD CELL CT 4.01 /CUMM (4.70-6.10); WHITE BLOOD CELL COUNT 8.6 /CUMM (4.8-10.8)
--- NOTE | 2017-11-01 08:48 | PN- General Surgery ---
See Addendum Subjective Subjective: PT SITTING IN CHAIR, TOLERATING CLEAR LIQUIDS, NO NAUSEA, BELCHING. NO FLATUS OR BM YET. AMBULATING TO BATHROOM. VOIDING. PAIN CONTROLLED WITH MEDICATION Objective Vital Signs and I&Os Vital Signs Date Time Temp Pulse Resp B/P B/P Pulse O2 O2 Flow FiO2 Mean Ox Delivery Rate 11/01 0800 86 152/77 11/01 0800 86 152/77 11/01 0800 86 152/77 11/01 0800 86 152/77 11/01 0657 98.6 86 20 152/77 92 Nasal 1.0L Cannula 11/01 0000 Nasal 1.0L Cannula 10/31 2246 99.3 79 20 163/78 93 Nasal 1.5L Cannula 10/31 1600 Nasal 1.0L Cannula 10/31 1411 97.5 59 18 140/56 96 10/31 1202 Nasal 1.5L Cannula 10/31 1123 56 120/60 10/31 1123 56 120/60 10/31 1123 56 120/60 10/31 1123 120/60 Intake & Output 11/01 1600 11/01 0800 11/01 0000 10/31 1600 10/31 0800 10/31 0000 Intake Total 796 663 0553 800 285 Output Total 650 900 650 Balance -144 763 5813 -100 -365 Intake, IV 400 400 750 800 285 Intake, Oral 1320 0 Number 0 0 Bowel Movements Output, Urine 650 900 650 Patient 214 lb 222 lb Weight Weight Bed scale Bed scale Measurement Method Physical Exam: GEN- NAD RESP- CLEAR CARDIAC-RRR ABD- DISTENDED, DECREASED BS, TENDER AROUND INCISIONS. NO SIGNS OF INFECTION EXT- WARM AND DRY, NO EDEMA, NO CALF TENDERNESS Current Medications: Current Medications Sig/Maine Start time Last Medication Dose Route Stop Time Status Admin Acetaminophen 650 MG .STK-MED ONE 10/31 2200 DC PO 10/31 2201 Acetaminophen 650 MG Q6-PRN PRN 10/30 1944 AC 10/31 PO 2201 Amlodipine Besylate 5 MG DAILY 10/31 09 AC 11/01 PO 0800 Dextrose/Sodium 1,000 ML Q20H 10/31 1115 AC 11/01 Chloride IV 0604 Dextrose/Sodium 1,000 ML Q10H 10/30 1944 DC 10/31 Chloride IV 0554 Heparin Sodium 5,000 UNIT Q8 10/30 2199 AC 11/01 (Porcine) SC 0606 Insulin Human Regular 4 UNITS .STK-MED ONE 10/31 2333 DC IV 10/31 2334 Insulin Human Regular 4 UNITS .STK-MED ONE 10/31 1954 DC IV 11/01 1955 Insulin Human Regular 0 Q6 10/30 194 AC 11/01 SC 0605 Losartan Potassium 50 MG DAILY 10/31 0900 AC 11/01 PO 0800 Metoprolol Succinate 50 MG DAILY 10/31 0900 AC 11/01 PO 0800 Morphine Sulfate 2 MG Q4P PRN 10/30 1630 AC 10/31 IV 1540 Morphine Sulfate 4 MG Q3P PRN 10/30 1630 AC IV Ondansetron HCl 4 MG Q6P PRN 10/30 1800 AC IV Pantoprazole Sodium 40 MG DAILY 10/30 1623 AC 11/01 IV 0800 Tamsulosin HCl 0.4 MG DAILY 10/31 0900 AC 11/01 PO 0800 Results Last 48 Hours of Labs: Laboratory Tests 11/01 10/31 10/31 0625 0746 0719 Chemistry Sodium (137 - 145 mmol/L) 140 142 Potassium (3.5 - 5.1 mmol/L) 3.7 4.2 Chloride (98 - 107 mmol/L) 106 105 Carbon Dioxide (22 - 30 mmol/L) 27 25 Anion Gap (5 - 16) 7 11 BUN (9 - 20 mg/dL) 12 15 Creatinine (0.7 - 1.2 mg/dL) 1.0 0.9 Estimated GFR (>60 ml/min) > 60 > 60 BUN/Creatinine Ratio (7 - 25 %) 12.0 16.7 Hematology CBC w Diff Pending NO MAN DIFF REQ WBC (4.8 - 10.8 /CUMM) Pending 10.9 H RBC (4.70 - 6.10 /CUMM) Pending 3.96 L Hgb (14.0 - 18.0 G/DL) Pending 9.0 L Hct (42 - 52 %) Pending 28.9 L MCV (80.0 - 94.0 FL) Pending 72.9 L MCH (27.0 - 31.0 PG) Pending 22.8 L MCHC (33.0 - 37.0 G/DL) Pending 31.3 L RDW (11.5 - 14.5 %) Pending 24.8 H Plt Count (130 - 400 /CUMM) Pending 211 MPV (7.4 - 10.4 FL) Pending 10.5 H Gran % (42.2 - 75.2 %) 78.0 H Lymphocytes % (20.5 - 51.1 %) 13.6 L Monocytes % (1.7 - 9.3 %) 8.1 Eosinophils % (0 - 5 %) 0 Basophils % (0.0 - 2.0 %) 0.3 Absolute Granulocytes (1.4 - 6.5 /CUMM) 8.5 H Absolute Lymphocytes (1.2 - 3.4 /CUMM) 1.5 Absolute Monocytes (0.10 - 0.60 /CUMM) 0.9 H Absolute Eosinophils (0.0 - 0.7 /CUMM) 0 Absolute Basophils (0.0 - 0.2 /CUMM) 0 10/30 1425 Blood Gas pH (7.35 - 7.45 PH) 7.39 pCO2 (35 - 45 TORR) 40 pO2 (80 - 100 TORR) 222 H HCO3 (21 - 28 MEQ/L) 24 ABG O2 Sat (Measured) (>96.0 %) 98.0 P-50 (Temp Corrected) N Carboxyhemoglobin (1.5 - 5.0 %) 1.0 L O2 Concentration % 100 Temperature (97.0 - 100.0 FARH) 37.2 L O2 Delivery Method O.R. Miscellaneous Phlebotomy Draw Site ALMA Assessment/Plan Assessment/Plan 86YO M SP CRISTIANE RIGHT HEMICOLECTOMY POD2. STABLE. AWAITING RETURN OF BOWEL FUNCTION CONT CLEAR LIQUIDS, AWAITING BOWEL FUNCTION DVT PPX- HSQ AND ALPS ENCOURAGE AMBULATION AND IS PAIN MANAGEMENT DRESSING CHANGE FU LABS Core Measures Venous Thromboembolism VTE Risk Factors Surgery No Mechanical VTE Prophylaxis d/t N/A MechProphylax Ordered No VTE Pharm Prophylaxis d/t NA PharmProphylax ordered
[2017-11-01 14:33] VITALS: BP 152/68
[2017-11-01 21:57] VITALS: BP 128/62
[2017-11-02 06:42] VITALS: BP 128/66
--- NOTE | 2017-11-02 07:33 | PN- General Surgery ---
See Addendum Subjective Subjective: Family at bedside. Ongoing diarrhea overnight. Tolerating clears. No nausea. Out of bed yesterday, ambulating without difficulty. No dizziness. No shortness of breath. No chest pains. Urine output not strictly recorded in the last 24 hours. Objective Vital Signs and I&Os Vital Signs Date Time Temp Pulse Resp B/P B/P Pulse O2 O2 Flow FiO2 Mean Ox Delivery Rate 11/02 0642 98.0 76 18 128/66 92 Room Air 11/01 2157 98.5 70 18 128/62 94 Room Air 11/01 1433 98.2 67 18 152/68 91 Room Air 11/01 0800 86 152/77 11/01 0800 86 152/77 11/01 0800 86 152/77 11/01 0800 86 152/77 11/01 0800 92 Nasal 1.0L Cannula Intake & Output 11/02 0800 11/02 0000 11/01 1600 11/01 0800 11/01 0000 10/31 1600 Intake Total 1740 009 489 3899 Output Total 2 650 Balance -2 1740 -878 417 7420 Intake, IV 0 400 400 750 Intake, Oral 1740 1320 Number 1 0 0 Bowel Movements Output, Stool 2 Output, Urine 650 Patient 214 lb Weight Weight Bed scale Measurement Method Physical Exam: General - alert. comfortable. no acute distress. Lungs - clear bilaterally. no w/r/r. Cardiac - s1s2. reg. soft systolic murmur appreciated Abdomen - soft. suprapubic port incision with ABD dressing stained with bloody drainage. midline island dressing removed. steri strips intact. expected marlena- incisional tenderness. Extremities - warm bilaterally. no c/c/e. calves soft and nontender b/l. athrombics active b/l. Current Medications: Current Medications Sig/Maine Start time Last Medication Dose Route Stop Time Status Admin Acetaminophen 650 MG Q6-PRN PRN 10/30 1944 AC 10/31 PO 2201 Amlodipine Besylate 5 MG DAILY 10/31 0900 AC 11/01 PO 0800 Dextrose/Sodium 1,000 ML Q20H 10/31 1115 DC 11/01 Chloride IV 0604 Heparin Sodium 5,000 UNIT Q8 10/30 2199 AC 11/02 (Porcine) SC 0630 Insulin Human Regular 6 UNITS .STK-MED ONE 11/01 1940 DC IV 11/01 1941 Insulin Human Regular 6 UNITS .STK-MED ONE 11/01 1346 DC IV 11/01 1347 Insulin Human Regular 0 Q6 10/30 1941 AC 11/02 SC 0630 Losartan Potassium 50 MG DAILY 10/31 0900 AC 11/01 PO 0800 Metoprolol Succinate 50 MG DAILY 10/31 0900 AC 11/01 PO 0800 Morphine Sulfate 2 MG Q4P PRN 10/30 1630 AC 10/31 IV 1540 Morphine Sulfate 4 MG Q3P PRN 10/30 1630 AC IV Ondansetron HCl 4 MG Q6P PRN 10/30 1800 AC IV Pantoprazole Sodium 40 MG DAILY 10/30 1623 AC 11/01 IV 0800 Potassium Chloride 20 MEQ ONCE ONE 11/01 2029 DC 11/01 PO 11/01 Potassium Chloride 20 MEQ ONCE ONE 11/01 0900 CAN PO 11/01 09 Tamsulosin HCl 0.4 MG DAILY 10/31 09 AC 11/01 PO 0800 Results Last 48 Hours of Labs: Laboratory Tests 11/01 10/31 0625 0746 Chemistry Sodium (137 - 145 mmol/L) 140 Potassium (3.5 - 5.1 mmol/L) 3.7 Chloride (98 - 107 mmol/L) 106 Carbon Dioxide (22 - 30 mmol/L) 27 Anion Gap (5 - 16) 7 BUN (9 - 20 mg/dL) 12 Creatinine (0.7 - 1.2 mg/dL) 1.0 Estimated GFR (>60 ml/min) > 60 BUN/Creatinine Ratio (7 - 25 %) 12.0 Hematology CBC w Diff NO MAN DIFF REQ NO MAN DIFF REQ WBC (4.8 - 10.8 /CUMM) 8.6 10.9 H RBC (4.70 - 6.10 /CUMM) 4.01 L 3.96 L Hgb (14.0 - 18.0 G/DL) 9.1 L 9.0 L Hct (42 - 52 %) 29.4 L 28.9 L MCV (80.0 - 94.0 FL) 73.3 L 72.9 L MCH (27.0 - 31.0 PG) 22.8 L 22.8 L MCHC (33.0 - 37.0 G/DL) 31.1 L 31.3 L RDW (11.5 - 14.5 %) 25.2 H 24.8 H Plt Count (130 - 400 /CUMM) 198 211 MPV (7.4 - 10.4 FL) 11.0 H 10.5 H Gran % (42.2 - 75.2 %) 70.4 78.0 H Lymphocytes % (20.5 - 51.1 %) 19.0 L 13.6 L Monocytes % (1.7 - 9.3 %) 9.5 H 8.1 Eosinophils % (0 - 5 %) 0.6 0 Basophils % (0.0 - 2.0 %) 0.5 0.3 Absolute Granulocytes (1.4 - 6.5 /CUMM) 6.0 8.5 H Absolute Lymphocytes (1.2 - 3.4 /CUMM) 1.6 1.5 Absolute Monocytes (0.10 - 0.60 /CUMM) 0.8 H 0.9 H Absolute Eosinophils (0.0 - 0.7 /CUMM) 0.1 0 Absolute Basophils (0.0 - 0.2 /CUMM) 0 0 Assessment/Plan Assessment/Plan This 86 year old wolof speaking male with history of htn, aaa, hld, iddm, iron deficiency anemia, cad s/p stent (2003), ballon angioplasty (2005), and stent ( 2015), is POD#3 s/p lap assisted right hemicolectomy, with reported ongoing watery diarrhea overnight tolerating clears. may consider re-starting iv fluids for GI losses send stool to check cdiff f/u labs, accuchecks strict i/o's (currently u/o not recorded for last 24 hours) abdominal port dressing changed hep sc - dvt ppx oob/ambulation IST will d/w Core Measures Venous Thromboembolism VTE Risk Factors Surgery No Mechanical VTE Prophylaxis d/t N/A MechProphylax Ordered No VTE Pharm Prophylaxis d/t NA PharmProphylax ordered
[2017-11-02 08:12] LABS: ABSOLUTE BASOPHIL COUNT 0 /CUMM (0.0-0.2); ABSOLUTE EOSINOPHIL COUNT 0.1 /CUMM (0.0-0.7); ABSOLUTE GRANULOCYTE CT 5.3 /CUMM (1.4-6.5); ABSOLUTE LYMPH COUNT 1.6 /CUMM (1.2-3.4); ABSOLUTE MONOCYTE COUNT 0.6 /CUMM (0.10-0.60); BASOPHIL % 0.5 % (0.0-2.0); EOSINOPHIL % 1.7 % (0-5); GRANULOCYTE % 69.3 % (42.2-75.2); HEMATOCRIT 30.9 % (42-52); MEAN CORPUSCULAR HGB 22.9 PG (27.0-31.0); MEAN CORPUSCULAR HGB CONC 31.3 G/DL (33.0-37.0); MEAN PLATELET VOLUME 10.8 FL (7.4-10.4); PLATELET COUNT 212 /CUMM (130-400); RBC DISTRIBUTION WIDTH 25.5 % (11.5-14.5); RED BLOOD CELL CT 4.23 /CUMM (4.70-6.10); WHITE BLOOD CELL COUNT 7.7 /CUMM (4.8-10.8)
[2017-11-02 15:06] VITALS: BP 130/62
[2017-11-02 23:25] VITALS: BP 120/60
[2017-11-03 07:18] VITALS: BP 148/83
--- NOTE | 2017-11-03 07:34 | PN- General Surgery ---
See Addendum Subjective Subjective: Family at bedside to interpret. Diarrhea resolved yesterday. Reports abdominal discomfort and bloating. He is tolerating clears without nausea or vomiting. Reports ambulating in the halls. Denies passing flatus regularly. Offers no other complaints. Objective Vital Signs and I&Os Vital Signs Date Time Temp Pulse Resp B/P B/P Pulse O2 O2 Flow FiO2 Mean Ox Delivery Rate 11/02 2325 98.9 68 18 120/60 94 Room Air 11/02 1600 94 Room Air 11/02 1506 98.0 70 19 130/62 91 Room Air 11/02 0825 130/68 11/02 0825 130/68 11/02 0824 89 130/68 11/02 0824 130/68 11/02 0800 Room Air Intake & Output 11/03 0800 11/03 0000 11/02 1600 11/02 0800 11/02 0000 11/01 1600 Intake Total 905 301 4725 Output Total 400 300 550 52 Balance -400 100 -50 -52 1740 Intake, IV 300 0 Intake, Oral 131 289 1285 Number 2 1 1 0 Bowel Movements Output, Stool 2 Output, Urine 400 300 550 50 Patient 214 lb Weight Physical Exam: General - asleep in bed, arousable to questioning in nad Lungs - CTAB Cardiac - S1S2 noted Abdomen - softly distended, incisions with steristrips in place, suprapubic dressing milding saturated with serosanguinous 1 cm pinpoint opening with scant active drainage, redressed with gauze and tape, appropriately tender marlena- incisionally, no rebound or guarding noted Ext - alps in place, no edema or calf tenderness Current Medications: Current Medications Sig/Maine Start time Last Medication Dose Route Stop Time Status Admin Acetaminophen 650 MG Q6-PRN PRN 10/30 1944 AC 10/31 PO 2201 Amlodipine Besylate 5 MG DAILY 10/31 0900 AC 11/02 PO 0825 Heparin Sodium 5,000 UNIT Q8 10/30 2199 AC 11/03 (Porcine) SC 0544 Insulin Human Regular 2 UNITS .STK-MED ONE 11/02 1941 DC IV 11/02 1942 Insulin Human Regular 4 UNITS .STK-MED ONE 11/02 1140 DC IV 11/02 114 Insulin Human Regular 0 Q6 10/30 1941 AC 11/03 SC 0546 Losartan Potassium 50 MG DAILY 10/31 0900 AC 11/02 PO 0824 Magnesium Sulfate 1 GM Q2H 11/02 1400 DC 11/02 Dextrose/Water 100 ML IV 11/02 1759 1900 Metoprolol Succinate 50 MG DAILY 10/31 0900 AC 11/02 PO 0825 Morphine Sulfate 2 MG Q4P PRN 10/30 1630 AC 10/31 IV 1540 Morphine Sulfate 4 MG Q3P PRN 10/30 1630 AC IV Ondansetron HCl 4 MG Q6P PRN 10/30 1800 AC IV Pantoprazole Sodium 40 MG DAILY 10/30 1623 AC 11/02 IV 0824 Potassium Phosphate 15 mMol ONE ONE 11/02 1400 DC 11/02 Sodium Chloride 250 ML IV 11/02 1804 1939 Tamsulosin HCl 0.4 MG DAILY 10/31 09 AC 11/02 PO 0824 Results Last 48 Hours of Labs: Laboratory Tests 11/02 11/02 0650 0650 Chemistry Sodium (137 - 145 mmol/L) 140 Cancelled Potassium (3.5 - 5.1 mmol/L) 3.8 Cancelled Chloride (98 - 107 mmol/L) 108 H Cancelled Carbon Dioxide (22 - 30 mmol/L) 24 Cancelled Anion Gap (5 - 16) 8 Cancelled BUN (9 - 20 mg/dL) 16 Cancelled Creatinine (0.7 - 1.2 mg/dL) 1.1 Cancelled Estimated GFR (>60 ml/min) > 60 BUN/Creatinine Ratio (7 - 25 %) 14.5 Cancelled Phosphorus (2.5 - 4.5 mg/dL) 3.0 Magnesium (1.6 - 2.3 mg/dL) 1.8 Hematology CBC w Diff NO MAN DIFF REQ WBC (4.8 - 10.8 /CUMM) 7.7 RBC (4.70 - 6.10 /CUMM) 4.23 L Hgb (14.0 - 18.0 G/DL) 9.7 L Hct (42 - 52 %) 30.9 L MCV (80.0 - 94.0 FL) 73.0 L MCH (27.0 - 31.0 PG) 22.9 L MCHC (33.0 - 37.0 G/DL) 31.3 L RDW (11.5 - 14.5 %) 25.5 H Plt Count (130 - 400 /CUMM) 212 MPV (7.4 - 10.4 FL) 10.8 H Gran % (42.2 - 75.2 %) 69.3 Lymphocytes % (20.5 - 51.1 %) 20.4 L Monocytes % (1.7 - 9.3 %) 8.1 Eosinophils % (0 - 5 %) 1.7 Basophils % (0.0 - 2.0 %) 0.5 Absolute Granulocytes (1.4 - 6.5 /CUMM) 5.3 Absolute Lymphocytes (1.2 - 3.4 /CUMM) 1.6 Absolute Monocytes (0.10 - 0.60 /CUMM) 0.6 Absolute Eosinophils (0.0 - 0.7 /CUMM) 0.1 Absolute Basophils (0.0 - 0.2 /CUMM) 0 Assessment/Plan Assessment/Plan 86 M POD 4 s/p lap assisted right hemicolectomy, tolerating clears with resolved diarrhea Advance to fulls Pain regimen prn Cont ISS GI ppx on board DVT ppx - hsq, alps, ambulate Asa 81 on hold Daily dressing changes suprapubic incision Encourage IS F/u labs, c.diff Will d/w Core Measures Venous Thromboembolism VTE Risk Factors Surgery No Mechanical VTE Prophylaxis d/t N/A MechProphylax Ordered No VTE Pharm Prophylaxis d/t NA PharmProphylax ordered
[2017-11-03 08:47] LABS: ABSOLUTE BASOPHIL COUNT 0 /CUMM (0.0-0.2); ABSOLUTE EOSINOPHIL COUNT 0.1 /CUMM (0.0-0.7); ABSOLUTE GRANULOCYTE CT 4.1 /CUMM (1.4-6.5); ABSOLUTE LYMPH COUNT 1.6 /CUMM (1.2-3.4); ABSOLUTE MONOCYTE COUNT 0.4 /CUMM (0.10-0.60); BASOPHIL % 0.5 % (0.0-2.0); GRANULOCYTE % 65.3 % (42.2-75.2); MEAN CORPUSCULAR HGB 23.1 PG (27.0-31.0); MEAN CORPUSCULAR HGB CONC 31.6 G/DL (33.0-37.0); MEAN CORPUSCULAR VOLUME 72.9 FL (80.0-94.0); MEAN PLATELET VOLUME 10.9 FL (7.4-10.4); PLATELET COUNT 221 /CUMM (130-400); RBC DISTRIBUTION WIDTH 25.4 % (11.5-14.5); RED BLOOD CELL CT 4.11 /CUMM (4.70-6.10); WHITE BLOOD CELL COUNT 6.2 /CUMM (4.8-10.8)
[2017-11-03 14:45] VITALS: BP 130/66
[2017-11-03 21:08] VITALS: BP 137/70
[2017-11-04 06:12] VITALS: BP 148/60
--- NOTE | 2017-11-04 07:18 | PN- General Surgery ---
See Addendum Subjective Subjective: Family at bedside. Ongoing abdominal bloating / discomfort. Denies nausea. One or two times of flatus overnight. No bms overnight. Out of bed with assistance. No dizziness. No shortness of breath. No chest pains. urine output improved with restarting iv fluids @ 50/hr. Objective Vital Signs and I&Os Vital Signs Date Time Temp Pulse Resp B/P B/P Pulse O2 O2 Flow FiO2 Mean Ox Delivery Rate 11/04 06 98.9 77 20 148/60 94 Room Air 11/03 2108 99.1 69 18 137/70 95 11/03 1445 97.8 71 20 130/66 93 Room Air 11/03 0920 90 131/69 11/03 0920 90 131/69 11/03 0920 90 13169 11/03 0920 90 131 Intake & Output 11/04 0800 11/04 0000 11/03 1600 11/03 0800 11/03 0000 11/02 1600 Intake Total 200 500 400 500 Output Total 400 600 150 400 300 550 Balance -400 -400 350 -400 100 -50 Intake, IV 200 300 Intake, Oral 500 100 500 Number 2 Bowel Movements Output, Urine 400 600 150 400 300 550 Patient 214 lb Weight Physical Exam: General - alert & oriented. out of bed to chair. no acute distress. Lungs - clear bilaterally. no w/r/r. Cardiac - s1s2. reg. Abdomen - distended. lower suprapubic port dressing saturated with serous drainage (changed). expected marlena-incisional tenderness. Extremities - warm bilaterally. no c/c/e. calves soft and nontender b/l. athrombics in place. Assessment/Plan Assessment/Plan This 86 year old kinyarwanda speaking male with history of htn, aaa, hld, iddm, iron deficiency anemia, cad s/p stent (2004), ballon angioplasty (2006), and stent ( 2016), is POD#5 s/p lap assisted right hemicolectomy, with resolved diarrhea - now with some evidence of abdominal distension ?ileus tolerating some clears / fulls iv fluids @ 50mls/hr pain controlled dressing changed, lower abdomen oob/ambulation continue PT hep sc - dvt ppx IST f/u labs will d/w Core Measures Venous Thromboembolism VTE Risk Factors Surgery No Mechanical VTE Prophylaxis d/t N/A MechProphylax Ordered No VTE Pharm Prophylaxis d/t NA PharmProphylax ordered
--- NOTE | 2017-11-04 09:41 | Operative Report ---
Operative/Inv Procedure Report Surgery Date: 10/30/17 Name of Procedure: laparoscopic Right hemicolectomy Pre-Operative Diagnosis: right colon cancer Post-Operative Diagnosis: same Estimated Blood Loss: scant Surgeon/Acid Purifier: Shabana PACE,Ralf GREGORIO Anesthesia: general endotracheal tube Operative/Procedure Note Note: Patient was positioned supine, after induction of general anesthesia, a tap block was performed, IV antibiotics were given and then the abdomen was clipped prepped and draped from the nipples to the groin in the usual sterile fashion. A supraumbilical incision was planned for Luque trocar like for a gallbladder, this spot was infiltrated local anesthetic and a slightly curved horizontal incision was made over a centimeter long was deepened to the linea alba which was incised vertically at both sites secured with 0 Vicryl stay sutures the trocar was inserted, gas turned on to maximum of 15 mm followed by the camera, you could see the ink on the right side, no ascites no obvious superficial liver metastases. Then 3 more trochars were placed based on the location of the cecum which was a little high riding one in the hilum midepigastrium that was a 10-12, one lower in the midline infraumbilically, and one laterally on the left above the level of the umbilicus, triangulating with the 10-12. The initial approach and also for most of the case was medial to lateral. The right colon was picked up on both ends, spreading up the mesentery and showing with ileocolic pedicle was tenting it up and we scored across slightly from the terminal ileum to the hepatic flexure. Using the pedicle as the center to the right of it the mesentery was divided in that avascular window revealing the duodenum, and stopping near the right branch of the middle colic vessel. The left we deepened the scoring to just past Treve's fold. Then the pedicle was isolated and skeletonized just enough to get up on grasper around it and it was not that bulky and we came across it with the LigaSure in 2 bites and this area was observed for the rest of the case and it did not bleed or ooze. Next this medial to lateral direction of dissection continued past the duodenum revealing jaundice fascia this was developed both to the right and to the left with an endostapler we divided the terminal ileum to give us more mobility and then focused on the hepatic flexure which was more complicated because the colon here was elongated tortuous, the proximal transverse colon was like a hairpin turn, attached to the descending colon and the omentum made discerning the layers even more difficult this required some lateral to medial approach as well, although while being careful to avoid injury to the bowel wall this was done mostly with LigaSure. During the dissection care was taken to not injure the duodenum, avoid going too high to close to this. Mesenteric artery and also to close to the main middle colic vessels, the ureter and gonadal vessels were more posterior and medial. A point on the transverse colon is marked lightly with cautery approximating where the right branch of the middle colic artery comes off, and the omentum is divided here as well. There was not a separate right colic artery. Next the midepigastric incision was lengthened inferiorly enough so that I could pull the colon out without twisting and finished the dissection including the mesentery right branch of the middle colic outside using a wound protector. Also pulled up the terminal ileum without twisting then made a side to side functional end to end stapled anastomosis was made using a SYMONE stapler with two 80 mm cartridges, the first to make a common enterotomy, and the second to "T" -off the first. Before actually firing the stapler first we made sure that the distal small bowel and transverse colon are lined up parallel not twisted or stretched and that the mesenteric fat is cleared off circumferentially where the iona will go, we placed a 3-0 silk suture at the top and at the bottom to line them up, then make adjacent enterotomies on the antimesenteric borders inserted the stapler check that fat hasn't rolled in posteriorly, and fired. The second firing which completes the anastomosis and the resection, is checked for hemostasis with cautery but also the corners are dunked with 3-0 silk Lemberts. Next this incision is closed and we reestablished pneumoperitoneum and checked area of the anastomosis making sure it laid flat untwisted laterally on top, trying to keep the rest of the proximal small bowel away from the mesenteric defect. then the abdomen is irrigated checked for hemostasis small bowel is run and checked for any twisting and positioned down and away from the mesenteric defect. Next pneumoperitoneum is released and we closed the incisions he umbilical fascia with a [id number] 0 Vicryl and then the skin of all with 4-0 Monocryl subcuticular. EBL minimal lap and sponge counts correct wound expectancy was clean- contaminated, IV fluids crystalloid complications none, patient tolerated the procedure well and was returned to the recovery room in satisfactory condition.
[2017-11-04 14:00] VITALS: BP 120/60
[2017-11-04 22:56] VITALS: BP 160/79
[2017-11-05 06:43] VITALS: BP 135/80
--- NOTE | 2017-11-05 07:43 | PN- General Surgery ---
See Addendum Subjective Subjective: Patient reports postop pain in his suprapubic region, well controlled with. Tolerating fulls slowly, without nausea or vomiting. Denies passing flatus. No further loose BMs since 11/02. Ambulating in the halls. Offers no other complaints Objective Vital Signs and I&Os Vital Signs Date Time Temp Pulse Resp B/P B/P Pulse O2 O2 Flow FiO2 Mean Ox Delivery Rate 11/05 0643 98.7 64 18 135/80 93 Room Air 11/04 2256 98.6 74 20 160/79 95 Room Air 11/04 1400 99.2 67 20 120/60 92 Room Air 11/04 0756 77 148/60 11/04 0755 77 140/60 11/04 0755 77 148/60 11/04 0755 77 148/60 Intake & Output 11/05 0800 11/05 0000 11/04 1600 11/04 0800 11/04 0000 11/03 1600 Intake Total 182 086 5040 400 200 500 Output Total 500 700 800 600 150 Balance -100 -90 1380 -400 -400 350 Intake, IV 400 150 400 400 200 Intake, Oral 460 980 500 Number 0 Bowel Movements Output, Urine 500 700 800 600 150 Physical Exam: General - asleep in bed, arousable to questioning in nad Lungs - CTAB Cardiac - S1S2 noted Abdomen - soft, moderately distended, incisions with steristrips in place, suprapubic dressing mildly saturated with serosanguinous drainage, 1 cm pinpoint opening with scant active drainage, redressed with gauze and tape, appropriately tender marlena-incisionally, no rebound or guarding noted Ext - alps in place, no edema or calf tenderness Current Medications: Current Medications Sig/[place] Start time Last Medication Dose Route Stop Time Status Admin Acetaminophen 650 MG Q6-PRN PRN 10/30 194 AC 10/31 PO 220 Amlodipine Besylate 5 MG DAILY 10/31 0900 AC 11/04 PO 0756 Dextrose/Water 1,000 ML Q20H 11/03 1600 AC 11/04 IV 1157 Heparin Sodium 5,000 UNIT Q8 10/30 2199 AC 11/05 (Porcine) SC 0548 Insulin Human Regular 3 UNITS .STK-MED ONE 11/04 215 DC IV 11/04 215 Insulin Human Regular 4 UNITS .STK-MED ONE 11/04 1800 DC IV 11/04 1801 Insulin Human Regular 8 UNITS .STK-MED ONE 11/04 1201 DC IV 11/04 1202 Insulin Human Regular 6 UNITS .STK-MED ONE 11/04 0752 DC IV 11/04 0753 Insulin Human Regular 0 TIDAC/HS 11/03 1245 AC 11/04 SC 2200 Losartan Potassium 50 MG DAILY 10/31 0900 AC 11/04 PO 0755 Metoprolol Succinate 50 MG DAILY 10/31 0900 AC 11/04 PO 0755 Morphine Sulfate 2 MG Q4P PRN 10/30 1630 AC 11/04 IV 2201 Morphine Sulfate 4 MG Q3P PRN 10/30 1630 AC IV Ondansetron HCl 4 MG Q6P PRN 10/30 1800 AC IV Pantoprazole Sodium 40 MG DAILY 10/30 1623 AC 11/04 IV 0754 Patient Medication 1 ED ONE ONE 11/04 1145 DC 11/04 Teaching ED 11/04 1146 1158 Tamsulosin HCl 0.4 MG DAILY 10/31 09 AC 11/04 PO 0755 Results Last 48 Hours of Labs: Laboratory Tests 11/05 11/03 0645 0744 Chemistry Sodium (137 - 145 mmol/L) Pending 141 Potassium (3.5 - 5.1 mmol/L) Pending 4.0 Chloride (98 - 107 mmol/L) Pending 107 Carbon Dioxide (22 - 30 mmol/L) Pending 25 Anion Gap (5 - 16) Pending 9 BUN (9 - 20 mg/dL) Pending 16 Creatinine (0.7 - 1.2 mg/dL) Pending 1.1 Estimated GFR (>60 ml/min) > 60 BUN/Creatinine Ratio (7 - 25 %) Pending 14.5 Phosphorus Pending Magnesium (1.6 - 2.3 mg/dL) Pending 2.0 Hematology CBC w Diff Pending NO MAN DIFF REQ WBC (4.8 - 10.8 /CUMM) Pending 6.2 RBC (4.70 - 6.10 /CUMM) Pending 4.11 L Hgb (14.0 - 18.0 G/DL) Pending 9.5 L Hct (42 - 52 %) Pending 30.0 L MCV (80.0 - 94.0 FL) Pending 72.9 L MCH (27.0 - 31.0 PG) Pending 23.1 L MCHC (33.0 - 37.0 G/DL) Pending 31.6 L RDW (11.5 - 14.5 %) Pending 25.4 H Plt Count (130 - 400 /CUMM) Pending 221 MPV (7.4 - 10.4 FL) Pending 10.9 H Gran % (42.2 - 75.2 %) 65.3 Lymphocytes % (20.5 - 51.1 %) 25.3 Monocytes % (1.7 - 9.3 %) 6.9 Eosinophils % (0 - 5 %) 2.0 Basophils % (0.0 - 2.0 %) 0.5 Absolute Granulocytes (1.4 - 6.5 /CUMM) 4.1 Absolute Lymphocytes (1.2 - 3.4 /CUMM) 1.6 Absolute Monocytes (0.10 - 0.60 /CUMM) 0.4 Absolute Eosinophils (0.0 - 0.7 /CUMM) 0.1 Absolute Basophils (0.0 - 0.2 /CUMM) 0 Assessment/Plan Assessment/Plan 86 M POD 6 s/p lap assisted right hemicolectomy with postop ileus Abdominal multiview this mornign Cont fulls, IVF Pain regimen prn Cont ISS GI ppx on board DVT ppx - hsq, alps, ambulate Daily dressing changes suprapubic incision Encourage IS D/w Core Measures Venous Thromboembolism VTE Risk Factors Surgery No Mechanical VTE Prophylaxis d/t N/A MechProphylax Ordered No VTE Pharm Prophylaxis d/t NA PharmProphylax ordered
[2017-11-05 08:29] LABS: ABSOLUTE BASOPHIL COUNT 0 /CUMM (0.0-0.2); ABSOLUTE EOSINOPHIL COUNT 0.1 /CUMM (0.0-0.7); ABSOLUTE GRANULOCYTE CT 3.4 /CUMM (1.4-6.5); ABSOLUTE LYMPH COUNT 1.5 /CUMM (1.2-3.4); ABSOLUTE MONOCYTE COUNT 0.6 /CUMM (0.10-0.60); BASOPHIL % 0 % (0.0-2.0); EOSINOPHIL % 2.2 % (0-5); GRANULOCYTE % 60.3 % (42.2-75.2); HEMATOCRIT 28.4 % (42-52); MEAN CORPUSCULAR HGB CONC 31.6 G/DL (33.0-37.0); MEAN CORPUSCULAR VOLUME 72.6 FL (80.0-94.0); PLATELET COUNT 187 /CUMM (130-400); RBC DISTRIBUTION WIDTH 24.1 % (11.5-14.5); RED BLOOD CELL CT 3.91 /CUMM (4.70-6.10); WHITE BLOOD CELL COUNT 5.6 /CUMM (4.8-10.8)
--- NOTE | 2017-11-05 14:31 | RADIOLOGY REPORT ---
EXAMINATION: XR ABDOMEN MULTIPLE VIEWS CLINICAL INDICATION: Abdominal distention. Rule out ileus/obstruction. Status post right hemicolectomy. COMPARISON: The scan of the abdomen and pelvis dated 10/10/2017. TECHNIQUE: 2 views of the abdomen performed on 5 images. FINDINGS: Mild gaseous distention of small bowel loops in the abdomen is seen with a few scattered air-fluid levels seen. Paucity of gas is seen within the colon, though some gas is seen outlining the ascending and descending colon and sigmoid colon. The patient is status post right hemicolectomy. No free air is seen. The lung bases are unremarkable. Mild degenerative changes as seen in the lower lumbar spine. IMPRESSION: Mild gaseous distention of small bowel loops in the abdomen, consistent with an ileus. No evidence of bowel obstruction or perforation.
[2017-11-05 14:39] VITALS: BP 135/64
--- NOTE | 2017-11-05 17:19 | ULTRASOUND REPORT ---
EXAMINATION: US TRIPLEX LOWER EXTREMITY, LEFT CLINICAL INFORMATION: Postoperative patient with left leg swelling. COMPARISON: None TECHNIQUE: Color-flow triplex imaging with spectral analysis and compression Doppler were performed on the left lower extremity. FINDINGS: The common femoral, superficial femoral and popliteal veins are noncompressible. On color Doppler imaging, slow flow is detected within the noncompressible femoral vein. Findings are suggestive of acute, partial thrombosis of the veins. The greater saphenous vein is normal at its saphenofemoral junction. Within the proximal thigh, there appears to be thrombosis of the profunda femoris vein. Within the leg, the tibioperoneal trunk is noncompressible. On color Doppler images, flow is detected within posterior tibial and peroneal veins. Within the popliteal fossa, a small amount of fluid is observed within the semimembranosus-medial gastrocnemius bursa. IMPRESSION: Findings consistent with extensive, acute deep vein thrombosis of the left femoral and popliteal system to the level of the tibioperoneal trunk. The critical test result was discussed with JG Sarmiento, at 5:15 PM on 11/05/2017 and it was ascertained that the content and the importance of the findings was understood at the time of the direct communication.
[2017-11-05 22:57] VITALS: BP 127/65
[2017-11-06 07:31] VITALS: BP 124/70
--- NOTE | 2017-11-06 07:41 | PN- General Surgery ---
See Addendum Subjective Subjective: Reports ongoing "heaviness" of his left leg. Started on xarelto yesterday for left leg dvt. No dizziness. No shortness of breath. No chest pains. He feels is abdomen is getting gradually "softer". Tolerating clears/fulls. No nausea. Passing some flatus, but no new bms. Objective Vital Signs and I&Os Vital Signs Date Time Temp Pulse Resp B/P B/P Pulse O2 O2 Flow FiO2 Mean Ox Delivery Rate 11/05 2256 99.8 83 20 127/65 96 Room Air 11/05 1439 98.6 90 18 135/64 95 Room Air 11/05 0902 75 147/11/05 0902 75 14711/05 0901 75 14711/05 0901 75 Intake & Output 11/06 0800 11/06 0000 11/05 1600 11/05 0800 11/05 0000 11/04 1600 Intake Total 650 390 683 833 2734 Output Total 350 200 500 500 700 Balance 300 190 -500 -100 -90 1380 Intake, IV 410 150 400 150 400 Intake, Oral 240 240 460 980 Number 0 0 0 Bowel Movements Output, Urine 350 200 500 500 700 Physical Exam: General - alert & oriented. comfortable. no acute distress. Lungs - clear. decreased breath sounds b/l bases. Cardiac - s1s2. reg. Abdomen - soft. dressing changed over suprapubic port, which is nearly dry now. expected marlena-incisional tenderness. improving distension. Extremities - swelling of left leg from foot to thigh. nvi. Current Medications: Current Medications Sig/[place] Start time Last Medication Dose Route Stop Time Status Admin Acetaminophen 650 MG Q6-PRN PRN 10/30 1945 AC 10/31 PO 220 Amlodipine Besylate 5 MG DAILY 10/31 0900 AC 11/05 PO 0901 Dextrose/Water 1,000 ML Q20H 11/03 1600 AC 11/06 IV 0509 Heparin Sodium 5,000 UNIT Q8 10/30 2200 DC 11/05 (Porcine) SC 1453 Hydrocodone Bitart/ 1 TAB Q4-6 PRN 11/05 1815 AC 11/06 Acetaminophen PO 0515 Insulin Human Regular 4 UNITS .STK-MED ONE 11/05 1722 DC IV 11/05 1723 Insulin Human Regular 8 UNITS .STK-MED ONE 11/05 1206 DC IV 11/05 1207 Insulin Human Regular 4 UNITS .STK-MED ONE 11/05 0845 DC IV 11/05 0846 Insulin Human Regular 0 TIDAC/HS 11/03 1245 AC 11/05 SC 1736 Losartan Potassium 50 MG DAILY 10/31 09 AC 11/05 PO 0902 Metoprolol Succinate 50 MG DAILY 10/31 0900 AC 11/05 PO 0901 Morphine Sulfate 2 MG Q4P PRN 11/05 1815 AC 11/05 IV 1950 Morphine Sulfate 2 MG Q4P PRN 10/30 1630 DC 11/04 IV 2201 Morphine Sulfate 4 MG Q3P PRN 10/30 1630 DC IV Ondansetron HCl 4 MG Q6P PRN 10/30 1800 AC IV Oxycodone/ 1 TAB Q4-6 PRN PRN 11/05 1745 CAN Acetaminophen PO Oxycodone/ 2 TAB Q4-6 PRN PRN 11/05 1745 CAN Acetaminophen PO Pantoprazole Sodium 40 MG DAILY 10/30 1623 AC 11/05 IV 0858 Rivaroxaban 15 MG BID 11/05 2100 AC 11/05 PO 2103 Tamsulosin HCl 0.4 MG DAILY 10/31 09 AC 11/05 PO 0902 Results Last 48 Hours of Labs: Laboratory Tests 11/06 11/05 0645 0645 Chemistry Sodium (137 - 145 mmol/L) Pending 136 L Potassium (3.5 - 5.1 mmol/L) Pending 4.0 Chloride (98 - 107 mmol/L) Pending 105 Carbon Dioxide (22 - 30 mmol/L) Pending 25 Anion Gap (5 - 16) Pending 7 BUN (9 - 20 mg/dL) Pending 11 Creatinine (0.7 - 1.2 mg/dL) Pending 0.9 Estimated GFR (>60 ml/min) > 60 BUN/Creatinine Ratio (7 - 25 %) Pending 12.2 Phosphorus (2.5 - 4.5 mg/dL) 3.3 Magnesium (1.6 - 2.3 mg/dL) 1.8 Hematology CBC w Diff Pending NO MAN DIFF REQ WBC (4.8 - 10.8 /CUMM) Pending 5.6 RBC (4.70 - 6.10 /CUMM) Pending 3.91 L Hgb (14.0 - 18.0 G/DL) Pending 9.0 L Hct (42 - 52 %) Pending 28.4 L MCV (80.0 - 94.0 FL) Pending 72.6 L MCH (27.0 - 31.0 PG) Pending 23.0 L MCHC (33.0 - 37.0 G/DL) Pending 31.6 L RDW (11.5 - 14.5 %) Pending 24.1 H Plt Count (130 - 400 /CUMM) Pending 187 MPV (7.4 - 10.4 FL) Pending 11.0 H Gran % (42.2 - 75.2 %) 60.3 Lymphocytes % (20.5 - 51.1 %) 26.4 Monocytes % (1.7 - 9.3 %) 11.1 H Eosinophils % (0 - 5 %) 2.2 Basophils % (0.0 - 2.0 %) 0 Absolute Granulocytes (1.4 - 6.5 /CUMM) 3.4 Absolute Lymphocytes (1.2 - 3.4 /CUMM) 1.5 Absolute Monocytes (0.10 - 0.60 /CUMM) 0.6 Absolute Eosinophils (0.0 - 0.7 /CUMM) 0.1 Absolute Basophils (0.0 - 0.2 /CUMM) 0 Assessment/Plan Assessment/Plan This 86 year old omani speaking male with history of htn, aaa, hld, iddm, iron deficiency anemia, cad s/p stent (2003), ballon angioplasty (2005), and stent ( 2015), is POD#7 s/p lap assisted right hemicolectomy, improving post-op ileus, new extensive, acute deep vein thrombosis of the left femoral and popliteal system to the level of the tibioperoneal trunk - started on xarelto yesterday tolerating fulls iv fluids @ 50/hr abdominal port site dressing changed (nearly dry this morning) continue xarelto for extensive new acute dvt lle f/u labs f/u vascular and cards recommendations IST will d/w Core Measures Venous Thromboembolism VTE Risk Factors Surgery No Mechanical VTE Prophylaxis d/t N/A MechProphylax Ordered No VTE Pharm Prophylaxis d/t NA PharmProphylax ordered
[2017-11-06 08:17] LABS: ABSOLUTE BASOPHIL COUNT 0 /CUMM (0.0-0.2); ABSOLUTE EOSINOPHIL COUNT 0.1 /CUMM (0.0-0.7); ABSOLUTE GRANULOCYTE CT 4.1 /CUMM (1.4-6.5); ABSOLUTE LYMPH COUNT 1.7 /CUMM (1.2-3.4); ABSOLUTE MONOCYTE COUNT 0.7 /CUMM (0.10-0.60); BASOPHIL % 0.4 % (0.0-2.0); EOSINOPHIL % 1.3 % (0-5); GRANULOCYTE % 61.9 % (42.2-75.2); HEMATOCRIT 29.6 % (42-52); MEAN CORPUSCULAR HGB 23.2 PG (27.0-31.0); MEAN CORPUSCULAR HGB CONC 31.8 G/DL (33.0-37.0); MEAN CORPUSCULAR VOLUME 72.9 FL (80.0-94.0); MEAN PLATELET VOLUME 10.9 FL (7.4-10.4); RBC DISTRIBUTION WIDTH 24.4 % (11.5-14.5); RED BLOOD CELL CT 4.06 /CUMM (4.70-6.10); WHITE BLOOD CELL COUNT 6.7 /CUMM (4.8-10.8)
[2017-11-06 09:07] LABS: PLATELET COUNT 209 /CUMM (130-400)
--- NOTE | 2017-11-06 09:41 | Cons- Cardiology ---
General Information and HPI Consulting Request Date of Consult: 11/06/17 Requested By: Shabana PACE,Ralf Marsh Reason for Consult: Cardiology evaluation post op Source of Information: patient, old records Exam Limitations: language barrier History of Present Illness: Mr. Jose L David is an 86-year-old male with known coronary artery disease. He previously saw Dr. Wright in [place]. According to Dr. Wright's notes, he had angioplasty on 10/11/2002 to the proximal LAD and again on 11/18/2002, he had a circumflex marginal stent. In 2004, he had repeat cardiac catheterization showing a 90% ostial lesion involving a diagonal branch with 80% stenosis in the LAD proximal to the diagonal branch. He had angioplasty for this on 02/28/2005. In 2009, he had an abnormal stress test showing anterior ischemia. He had angioplasty on 07/02/2009 at [facility] with in-stent restenosis of the LAD to 60% proximally and 60% to 70% in the mid segment with total occlusion of the stent in the ostial diagonal lesion. He had angioplasty of the mid and proximal LAD. He again had cardiac catheterization on 11/15/2015 and again had a stent in the proximal LAD. He had a followup stress test in April 2016 showing a small area of anteroapical ischemia, being followed medically. His last stress test available to me from 05/06/2016, showed showed a small to moderate anterolateral ischemia at the apex and a left ventricular ejection fraction of 27% with diffuse moderate to severe hypokinesis, which was less than his previous stress test showing an ejection fraction of 39%. His home medical regimen at this time included amlodipine 5 mg daily, aspirin 81 mg daily, clopidogrel 75 mg daily, diabetic medications, metoprolol 50 mg daily, rosuvastatin 10 mg daily, valsartan 160 mg, and hydrochlorothiazide 25 mg daily. He is a nonsmoker. He does not drink alcohol. He is being treated for dyslipidemia and hypertension. His echocardiogram in 01/2017 showed moderate LVH with a left ventricular cavity size at upper limits of normal. Ejection fraction was 45% to 50% with abnormal septal motion and stage I diastolic dysfunction. There was mild left atrial dilatation. There was thickening of aortic and mitral valves, and normal pulmonary artery pressure. Mr. Jose L David was on 10/10/2017 admitted to [facility] for anemia associated with some generalized fatigue. Workup at that time showed no new cardiac issues. He had an old left bundle branch block. He was cleared for colonoscopy or endoscopy, but he was discharged to have them done as an outpatient. 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 A CT scan done in the hospital documented a stable ascending aortic aneurysm of 4.9 cm. I cleared him for surgery on his recent office visit. He had the surgery on October 30, which was successful. However, despite VTE prophylaxis, he has developed DVT of his left leg, and was started on Xarelto yesterday. His aspirin and Plavix have been on hold since before the surgery. Allergies/Medications Allergies: Coded Allergies: No Known Allergies (10/28/17) Home Med List: Amlodipine Besylate 5 MG TABLET 1 TAB PO DAILY BP (Reported) Aspirin (Ecotrin*) 81 MG TABLET.DR 1 TAB PO DAILY CARDIAC (Reported) Ferrous Sulfate 325 MG (65 MG IRON) TABLET.DR 325 MG PO BID ANEMIA DO NOT START TAKING THIS MEDICATION UNTIL Thursday10/17/2017 (AFTER THE COLONOSCOPY). Gabapentin 100 MG CAPSULE 1 CAP PO QPM NERVE PAIN (Reported) Glimepiride 4 MG TABLET 1 TAB PO BID DM (Reported) Metformin HCl (Glucophage) 1,000 MG TABLET 1 TAB PO BID DM (Reported) Metoprolol Succinate 50 MG TAB.ER.24H 1 TAB PO DAILY HEART/BP (Reported) Omeprazole 40 MG CAPSULE.DR 1 CAP PO DAILY GASTRIC PROTECTION Peg 3350/Na Sulf,Bicarb,Cl/KCl (Golytely Solution) 236-22.74G SOLN.RECON 1 UNIT PO ONCE COLONOSCOPY PREP Do not eat any solid food after Thursday at midnight. Start colonscopy prep on morning. Please refer to instructions given at hospital. Rosuvastatin Calcium (Crestor) 10 MG TABLET 1 TAB PO DAILY CHOLESTEROL ( Reported) Tamsulosin HCl 0.4 MG CAP.ER.24H 1 CAP PO DAILY PROSTATE (Reported) Valsartan/Hydrochlorothiazide (Valsartan-Hctz 160-25 MG Tab) 160 MG-25 MG TABLET 1 TAB PO DAILY BP (Reported) Current Medications: Current Medications Sig/Maine Start time Last Medication Dose Route Stop Time Status Admin Acetaminophen 650 MG Q6-PRN PRN 10/30 1944 AC 10/31 PO 2202 Amlodipine Besylate 5 MG DAILY 10/31 899 AC 11/06 PO 0838 Dextrose/Water 1,000 ML Q20H 11/03 1600 AC 11/06 IV 0509 Heparin Sodium 5,000 UNIT Q8 10/30 2200 DC 11/05 (Porcine) SC 1453 Hydrocodone Bitart/ 1 TAB Q4-6 PRN 11/05 1815 AC 11/06 Acetaminophen PO 0515 Insulin Human Regular 4 UNITS .STK-MED ONE 11/05 1722 DC IV 11/05 1723 Insulin Human Regular 8 UNITS .STK-MED ONE 11/05 1206 DC IV 11/05 1207 Insulin Human Regular 0 TIDAC/HS 11/03 1245 AC 11/05 SC 1736 Losartan Potassium 50 MG DAILY 10/31 899 AC 11/06 PO 0838 Metoprolol Succinate 50 MG DAILY 10/31 899 AC 11/06 PO 0839 Morphine Sulfate 2 MG Q4P PRN 11/05 1815 AC 11/06 IV 0824 Morphine Sulfate 2 MG Q4P PRN 10/30 1630 DC 11/04 IV 2201 Morphine Sulfate 4 MG Q3P PRN 10/30 1630 DC IV Ondansetron HCl 4 MG Q6P PRN 10/30 1800 AC IV Oxycodone/ 1 TAB Q4-6 PRN PRN 11/05 1745 CAN Acetaminophen PO Oxycodone/ 2 TAB Q4-6 PRN PRN 11/05 1745 CAN Acetaminophen PO Pantoprazole Sodium 40 MG DAILY 10/30 1623 AC 11/06 IV 0838 Rivaroxaban 15 MG BID 11/05 2100 AC 11/06 PO 0839 Tamsulosin HCl 0.4 MG DAILY 10/31 899 AC 11/06 PO 0838 Review of Systems Review of Systems: No other complaints Past History Medical History Blood Transfusion Hx: Yes Neurological: NONE EENT: NONE Cardiovascular: CAD, hypertension, CARDIAC STENTS Respiratory: NONE Gastrointestinal: NONE Hepatic: NONE Renal: nephrolithiasis Musculoskeletal: NONE Psychiatric: NONE Endocrine: diabetes Blood Disorders: anemia Cancer(s): NONE CIRCUIT RIDER/Reproductive: UROSEPSIS Other Medical Hx: UTI Surgical History Surgical History: non-contributory Family History Relations & Conditions If Any: MOTHER (DM? sudden in 70s.). Psychosocial History Services at Home: None Smoking Status: Unknown If Ever Smoked Functional Ability ADLs Independent: dressing, eating, toileting, bathing. Ambulation: independent Exam & Diagnostic Data Vital Signs and I&O Vital Signs Date Time Temp Pulse Resp B/P B/P Pulse O2 O2 Flow FiO2 Mean Ox Delivery Rate 11/06 0839 74 122/70 11/06 0838 74 122/70 11/06 0838 74 122/70 11/06 0838 74 122/70 11/06 0731 98.9 85 20 124/70 97 Room Air 11/05 2257 99.8 83 20 127/65 96 Room Air 11/05 1439 98.6 90 18 135/64 95 Room Air Intake & Output 11/06 1600 11/06 0800 11/06 0000 11/05 1600 11/05 0800 11/05 0000 Intake Total 650 390 400 610 Output Total 350 200 500 500 700 Balance 300 190 -500 -100 -90 Intake, IV 410 150 400 150 Intake, Oral 240 240 460 Number 0 0 Bowel Movements Output, Urine 350 200 500 500 700 Physical Exam: He is only uncomfortable because of heaviness in his left leg. HEENT exam normal Chest clear Heart regular rhythm, no murmurs Extremities left leg swollen especially compared to right. Labs/Sudhakar Results: Laboratory Tests 11/06 11/05 0645 0645 Chemistry Sodium (137 - 145 mmol/L) 136 L 136 L Potassium (3.5 - 5.1 mmol/L) 4.2 4.0 Chloride (98 - 107 mmol/L) 103 105 Carbon Dioxide (22 - 30 mmol/L) 23 25 Anion Gap (5 - 16) 10 7 BUN (9 - 20 mg/dL) 12 11 Creatinine (0.7 - 1.2 mg/dL) 1.0 0.9 Estimated GFR (>60 ml/min) > 60 > 60 BUN/Creatinine Ratio (7 - 25 %) 12.0 12.2 Phosphorus (2.5 - 4.5 mg/dL) 3.3 Magnesium (1.6 - 2.3 mg/dL) 1.8 Hematology CBC w Diff NO MAN DIFF REQ NO MAN DIFF REQ WBC (4.8 - 10.8 /CUMM) 6.7 5.6 RBC (4.70 - 6.10 /CUMM) 4.06 L 3.91 L Hgb (14.0 - 18.0 G/DL) 9.4 L 9.0 L Hct (42 - 52 %) 29.6 L 28.4 L MCV (80.0 - 94.0 FL) 72.9 L 72.6 L MCH (27.0 - 31.0 PG) 23.2 L 23.0 L MCHC (33.0 - 37.0 G/DL) 31.8 L 31.6 L RDW (11.5 - 14.5 %) 24.4 H 24.1 H Plt Count (130 - 400 /CUMM) 209 187 MPV (7.4 - 10.4 FL) 10.9 H 11.0 H Gran % (42.2 - 75.2 %) 61.9 60.3 Lymphocytes % (20.5 - 51.1 %) 25.3 26.4 Monocytes % (1.7 - 9.3 %) 11.1 H 11.1 H Eosinophils % (0 - 5 %) 1.3 2.2 Basophils % (0.0 - 2.0 %) 0.4 0 Absolute Granulocytes (1.4 - 6.5 /CUMM) 4.1 3.4 Absolute Lymphocytes (1.2 - 3.4 /CUMM) 1.7 1.5 Absolute Monocytes (0.10 - 0.60 /CUMM) 0.7 H 0.6 Absolute Eosinophils (0.0 - 0.7 /CUMM) 0.1 0.1 Absolute Basophils (0.0 - 0.2 /CUMM) 0 0 Diagnostic Data EKG Results No EKG done on this admission, but his preoperative EKG showed left bundle branch block, which is chronic. CXR Results Not done Other Results PATIENT: JACKIE ALLISON PRESENT AGE: 86 PATIENT ACCOUNT NO: [id number] : 31 LOCATION: 2NB ORDERING PHYSICIAN: Violet GREGORIO SERVICE DATE: 11/05/17- EXAM TYPE: US - US-DUPLEX VENOUS EXTREM UNI EXAMINATION: US TRIPLEX LOWER EXTREMITY, LEFT CLINICAL INFORMATION: Postoperative patient with left leg swelling. COMPARISON: None TECHNIQUE: Color-flow triplex imaging with spectral analysis and compression Doppler were performed on the left lower extremity. FINDINGS: The common femoral, superficial femoral and popliteal veins are noncompressible. On color Doppler imaging, slow flow is detected within the noncompressible femoral vein. Findings are suggestive of acute, partial thrombosis of the veins. The greater saphenous vein is normal at its saphenofemoral junction. Within the proximal thigh, there appears to be thrombosis of the profunda femoris vein. Within the leg, the tibioperoneal trunk is noncompressible. On color Doppler images, flow is detected within posterior tibial and peroneal veins. Within the popliteal fossa, a small amount of fluid is observed within the semimembranosus-medial gastrocnemius bursa. IMPRESSION: Findings consistent with extensive, acute deep vein thrombosis of the left femoral and popliteal system to the level of the tibioperoneal trunk. The critical test result was discussed with JG Sarmiento, at 5:15 PM on 11/05/2017 and it was ascertained that the content and the importance of the findings was understood at the time of the direct communication. DICTATED BY: Hunter Machado MD DATE/TIME DICTATED:11/05/171644 DB2 DBA:FRANNY DATE/TIME TRANSCRIBED:11/05/171644 CONFIDENTIAL, DO NOT COPY WITHOUT APPROPRIATE AUTHORIZATION. <Electronically signed in Other Vendor System> SIGNED BY: Hunter Machado MD 11/05/17 3897 Assessment/Plan Assessment/Plan The patient is an 86-year-old man who recently underwent colon resection for cancer. He has developed DVT. He is on DVT dose of Xarelto. His aspirin and Plavix have been on hold since before the surgery. He does have underlying coronary artery disease but this has been stable and he has not had any cardiac events on this admission. I recommend holding his aspirin and Plavix while he is on relatively high dose of Xarelto. We can reassess this as an outpatient, especially when his Xarelto dose is reduced to prophylactic dosage. Consult Acknowledgment - Thank you for your consult request. Consult Acknowledgment - Thank you for your consult request.
[2017-11-06 14:53] VITALS: BP 130/52
[2017-11-06 21:09] VITALS: BP 126/74
[2017-11-07 06:12] VITALS: BP 124/54
--- NOTE | 2017-11-07 08:25 | PN- General Surgery ---
See Addendum Subjective Subjective: Patient reports ongoing heaviness in his left leg. He reports pain flatus and postop pain around his midline incision which is well controlled. He reports numbness in his left 4th and 5th finger since last night after blood was drawn. He is tolerating a reg diet without nausea or vomiting. He offers no other complaints. Objective Vital Signs and I&Os Vital Signs Date Time Temp Pulse Resp B/P B/P Pulse O2 O2 Flow FiO2 Mean Ox Delivery Rate 11/07 0831 74 120/58 11/07 0830 74 120/58 11/07 0830 74 120/58 11/07 0830 74 120/58 11/07 0612 98.1 62 20 124/54 94 Room Air 11/06 2109 98.4 65 20 126/74 95 Room Air 11/06 1453 98.2 63 20 130/52 97 Room Air Intake & Output 11/07 1600 11/07 0800 11/07 0000 11/06 1600 11/06 0800 11/06 0000 Intake Total 120 700 650 390 Output Total 100 350 550 200 350 200 Balance -100 -350 -430 500 300 190 Intake, IV 100 410 150 Intake, Oral 120 600 240 240 Number 0 0 0 Bowel Movements Output, Urine 100 350 550 200 350 200 Physical Exam: Gen - resting comfortably in nad Lungs - diminished at bases, otherwise clear Cardiac - S1S2 noted Abdomen - soft, mildly distended, normoactive bowel sounds, appropriately tender marlena-incisionally, no rebound or guarding noted Ext - swelling of left leg from foot to thigh, nvi Current Medications: Current Medications Sig/Maine Start time Last Medication Dose Route Stop Time Status Admin Acetaminophen 650 MG Q6-PRN PRN 10/30 194 AC 10/31 PO 220 Amlodipine Besylate 5 MG DAILY 10/31 09 11/07 PO 0830 Dextrose/Water 1,000 ML Q20H 11/03 1600 DC 11/06 IV 0509 Hydrocodone Bitart/ 1 TAB Q4-6 PRN 11/05 181 AC 11/06 Acetaminophen PO 2016 Insulin Human Regular 4 UNITS .STK-MED ONE 11/06 1721 DC IV 11/06 1722 Insulin Human Regular 6 UNITS .STK-MED ONE 11/06 1246 DC IV 11/06 1247 Insulin Human Regular 8 UNITS .STK-MED ONE 11/06 0854 DC IV 11/06 0855 Insulin Human Regular 0 TIDAC/HS 11/03 1245 AC 11/07 SC 0831 Losartan Potassium 50 MG DAILY 10/31 09 AC 11/07 PO 0831 Metoprolol Succinate 50 MG DAILY 10/31 09 AC 11/07 PO 0830 Morphine Sulfate 2 MG Q4P PRN 11/05 1815 AC 11/06 IV 0824 Ondansetron HCl 4 MG Q6P PRN 10/30 1800 AC IV Pantoprazole Sodium 40 MG DAILY 10/30 1623 AC 11/07 IV 0826 Rivaroxaban 15 MG BID 11/05 2100 AC 11/07 PO 0831 Tamsulosin HCl 0.4 MG DAILY 10/31 899 AC 11/07 PO 0830 Results Last 48 Hours of Labs: Laboratory Tests 11/06 644 Chemistry Sodium (137 - 145 mmol/L) 136 L Potassium (3.5 - 5.1 mmol/L) 4.2 Chloride (98 - 107 mmol/L) 103 Carbon Dioxide (22 - 30 mmol/L) 23 Anion Gap (5 - 16) 10 BUN (9 - 20 mg/dL) 12 Creatinine (0.7 - 1.2 mg/dL) 1.0 Estimated GFR (>60 ml/min) > 60 BUN/Creatinine Ratio (7 - 25 %) 12.0 Hematology CBC w Diff NO MAN DIFF REQ WBC (4.8 - 10.8 /CUMM) 6.7 RBC (4.70 - 6.10 /CUMM) 4.06 L Hgb (14.0 - 18.0 G/DL) 9.4 L Hct (42 - 52 %) 29.6 L MCV (80.0 - 94.0 FL) 72.9 L MCH (27.0 - 31.0 PG) 23.2 L MCHC (33.0 - 37.0 G/DL) 31.8 L RDW (11.5 - 14.5 %) 24.4 H Plt Count (130 - 400 /CUMM) 209 MPV (7.4 - 10.4 FL) 10.9 H Gran % (42.2 - 75.2 %) 61.9 Lymphocytes % (20.5 - 51.1 %) 25.3 Monocytes % (1.7 - 9.3 %) 11.1 H Eosinophils % (0 - 5 %) 1.3 Basophils % (0.0 - 2.0 %) 0.4 Absolute Granulocytes (1.4 - 6.5 /CUMM) 4.1 Absolute Lymphocytes (1.2 - 3.4 /CUMM) 1.7 Absolute Monocytes (0.10 - 0.60 /CUMM) 0.7 H Absolute Eosinophils (0.0 - 0.7 /CUMM) 0.1 Absolute Basophils (0.0 - 0.2 /CUMM) 0 Assessment/Plan Assessment/Plan 86 M POD 8 s/p lap assisted right hemicolectomy, resolving post-op ileus and new extensive, acute deep vein thrombosis of the left leg currently on xarelto Cont ada diet Cont pain regimen Continue xarelto for LLE DVT ASA and Plavix to remain on hold per cardiology Repeat LLE doppler in 5 days Encourage ambulation w/ RW, IS Will d/w Core Measures Venous Thromboembolism VTE Risk Factors Surgery No Mechanical VTE Prophylaxis d/t N/A MechProphylax Ordered No VTE Pharm Prophylaxis d/t NA PharmProphylax ordered
--- NOTE | 2017-11-07 12:45 | Patient Discharge Instructions ---
Discharge Instructions General Discharge Information You were seen/treated for: Right colon cancer You had these procedures: Laparoscopic right hemicolectomy Watch for these problems: Increase pain, distention, nausea, vomiting, redness, swelling or drainage from your incisions No bath, but you may shower: Yes Other wound care: Keep incisions clean and dry Special Instructions: Continue Xarelto for 21 days total. Stop taking aspirin and Plavix while taking Xarelto. You will need to have a left lower extremitiy venous doppler in 1 week (11/12/17). This will be scheduled with Dr Elizalde office of vascular surgery. Please follow up with Dr. Elizalde, from vascular in one week. Call their office for an appointment. Call for them to set up the venous doppler as well. Please follow up with your picker box operator, Dr. Campbell in 1 - 2 weeks Diet Continue normal diet: Yes Recommended Diet: Diabetic Activity Full Activity/No Limits: No Activity Self Limited: Yes Pounds, do NOT lift more than: 10 (x 4 weeks) Acute Coronary Syndrome Inclusion Criteria At DC or during hospital stay patient has or had the following: ACS DIAGNOSIS No Discharge Core Measures Meds if any: Prescribed or Continued at Discharge Meds if any: NOT Prescribed or Continued at Discharge Congestive Heart Failure Inclusion Criteria At DC or during hospital stay patient has or had the following: CHF DIAGNOSIS No Discharge Core Measures Meds if any: Prescribed or Continued at Discharge Meds if any: NOT Prescribed or Continued at Discharge Cerebrovascular accident Inclusion Criteria At DC or during hospital stay patient has or had the following: CVA/TIA Diagnosis No Discharge Core Measures Meds if any: Prescribed or Continued at Discharge Meds if any: NOT Prescribed or Continued at Discharge Venous thromboembolism Inclusion Criteria VTE Diagnosis Yes VTE Type Deep Venous Thrombosis VTE Confirmed by (Test) UNILATERAL VENOUS DOPPLER Discharge Core Measures - Per Current guidelines, there needs to be overlap - treatment for the first 5 days of Warfarin therapy. - If discharged on Warfarin prior to 5 days of - overlap therapy, the patient will need to be - assessed for post discharge needs including - *Post discharge parental anticoagulation - *Warfarin and/or parental anticoagulation education - *Follow up date to check INR post discharge At least 5 days overlap therapy as Inpatient No Meds if any: Prescribed or Continued at Discharge Note: Overlap Therapy is Warfarin and Anticoagulant Meds if any: NOT Prescribed or Continued at Discharge
[2017-11-07 14:06] VITALS: BP 110/52
[2017-11-07 21:58] VITALS: BP 112/58
[2017-11-08 06:50] VITALS: BP 118/64
[2017-11-08 08:15] VITALS: BP 118/64
[2017-11-08 09:10] LABS: ABSOLUTE BASOPHIL COUNT 0 /CUMM (0.0-0.2); ABSOLUTE EOSINOPHIL COUNT 0.1 /CUMM (0.0-0.7); ABSOLUTE GRANULOCYTE CT 4.8 /CUMM (1.4-6.5); ABSOLUTE LYMPH COUNT 2.4 /CUMM (1.2-3.4); BASOPHIL % 0.4 % (0.0-2.0); EOSINOPHIL % 1.5 % (0-5); GRANULOCYTE % 57.6 % (42.2-75.2); HEMATOCRIT 29.7 % (42-52); MEAN CORPUSCULAR HGB 23.2 PG (27.0-31.0); MEAN CORPUSCULAR HGB CONC 31.9 G/DL (33.0-37.0); MEAN CORPUSCULAR VOLUME 72.8 FL (80.0-94.0); MEAN PLATELET VOLUME 10.6 FL (7.4-10.4); PLATELET COUNT 269 /CUMM (130-400); RBC DISTRIBUTION WIDTH 24.8 % (11.5-14.5); RED BLOOD CELL CT 4.09 /CUMM (4.70-6.10); WHITE BLOOD CELL COUNT 8.3 /CUMM (4.8-10.8)
[2017-11-08] MEDS ORDERED: XARELTO15 M1 PO (11:08)
--- NOTE | 2017-11-08 11:15 | PN- General Surgery ---
See Addendum Subjective Subjective: OOB in chair Translation via family members who are at his side. He is comfortable, eating breakfast - no specific complaints. Pain is well controlled and he has had no need for narcotics in several days. +flatus - +bm about one hour ago Objective Vital Signs and I&Os Vital Signs Date Time Temp Pulse Resp B/P B/P Pulse O2 O2 Flow FiO2 Mean Ox Delivery Rate 11/08 0815 97.9 67 18 118/64 11/08 0815 97.9 67 18 118/64 11/08 0815 97.9 67 18 118/64 11/08 0815 97.9 67 18 118/64 11/08 0650 97.9 67 18 93 11/07 2158 98.2 64 20 112/58 92 11/07 1406 98.2 67 20 110/52 95 Room Air Intake & Output 11/08 1600 11/08 0800 11/08 0000 11/07 1600 11/07 0800 11/07 0000 Intake Total 100 100 500 120 Output Total 350 300 350 550 Balance -250 100 200 -350 -430 Intake, Oral 100 100 500 120 Number 1 Bowel Movements Output, Urine 350 300 350 550 Physical Exam: Gen - resting comfortably in chair Lungs - diminished at bases, otherwise clear Cardiac - RRR Abdomen - soft, mildly distended, good bowel sounds, appropriately tender marlena- incisionally, no rebound or guarding noted Ext - swelling of left leg from foot to thigh, non tender, nvi Wd: clean and dry Assessment/Plan Assessment/Plan 86yo male s/p lap assisted R Hemicolectomy with prolonged ileus post op now pod 9, has just moved his bowels Discussed with Dr Donald dc home follow up with him in 2 weeks follow up with Dr Elizalde within one week follow up with Dr Campbell - cardiology within 2 weeks continue xarelto for 21 day course Meds to be reassessed by vascular and cardiology holding aspirin for now - plavix was already discontinued by Dr Campbell per the family Core Measures Venous Thromboembolism VTE Risk Factors Surgery No Mechanical VTE Prophylaxis d/t N/A MechProphylax Ordered No VTE Pharm Prophylaxis d/t NA PharmProphylax ordered
[2017-11-08] MEDS ORDERED: TYLENOL EXTRA500 M2 PO (11:16)
--- NOTE | 2017-11-09 12:37 | Discharge Summary ---
Visit Information Visit Dates Admission Date: 10/30/17 Discharge Date: 11/08/17 Hospital Course Course Attending Physician: Shabana PACE,Ralf Marsh Primary Care Physician: Pranay Samaniego MD Hospital Course: Admitted 18 after laparoscopic right hemicolectomy for cancer on postoperative day to have loose bowel movements but after about a day stopped having bowel movements was still passing gas was a bit little bit distended, so we restarted fluids and kept him on minimal oral intake he was also found to have an acute DVT of the left leg he was started on anticoagulant per vascular surgery otherwise he did well and last night he had a bowel movement we had already started regular diet so he can be discharged home no signs of bleeding obstruction infection or ischemia. He will be followed up for his DVT and his coronary artery disease and we'll follow him in the office in about 2 weeks or sooner if he develops nausea vomiting or fevers. Of note small left flank bruise is a little mysterious but it's possible that it's related to the tap block on that side, it's asymptomatic. Allergies: Coded Allergies: No Known Allergies (10/28/17) Disposition Summary Disposition Principal Diagnosis: Colon cancer Additional Diagnosis: Left leg DVT Discharge Disposition: home or self care Discharge Instructions General Discharge Information Code Status: Full Code Patient's Diet: Resume usual Patient's Activity: No heavy lifting Follow-Up Instructions/Appts: As mentioned above 2 weeks office Medications at Discharge Discharge Medications: Stop taking the following medications: Peg 3350/Na Sulf,Bicarb,Cl/KCl (Golytely Solution) 236-22.74G SOLN.RECON ORAL GIVE ONCE Qty = 1 Aspirin (Ecotrin*) 81 MG TABLET.DR ORAL DAILY Continue taking these medications: Metformin HCl (Glucophage) 1,000 MG TABLET 1 Tablet ORAL TWICE DAILY Comments: NOT GIVEN Glimepiride (Glimepiride) 4 MG TABLET 1 Tablet ORAL TWICE DAILY Qty = 60 Comments: NOT GIVEN Amlodipine Besylate (Amlodipine Besylate) 5 MG TABLET 1 Tablet ORAL DAILY Qty = 90 Comments: Last Taken: 11/08/17 Time: 08:15 AM Tamsulosin HCl (Tamsulosin HCl) 0.4 MG CAP.ER.24H 1 Capsule ORAL DAILY Qty = 30 Comments: Last Taken: 11/08/17 Time: 08:15 AM Gabapentin (Gabapentin) 100 MG CAPSULE 1 Capsule ORAL Every night Qty = 90 Comments: NOT GIVEN Metoprolol Succinate (Metoprolol Succinate) 50 MG TAB.ER.24H 1 Tablet ORAL DAILY Qty = 90 Comments: Last Taken: 11/08/17 Time: 08:15 AM Rosuvastatin Calcium (Crestor) 10 MG TABLET 1 Tablet ORAL DAILY Qty = 90 Comments: NOT GIVEN Valsartan/Hydrochlorothiazide (Valsartan-Hctz 160-25 MG Tab) 160 MG-25 MG TABLET 1 Tablet ORAL DAILY Qty = 90 Comments: NOT GIVEN Ferrous Sulfate (Ferrous Sulfate) 325 MG (65 MG IRON) TABLET. 325 Milligram ORAL TWICE DAILY Qty = 60 Instructions: DO NOT START TAKING THIS MEDICATION UNTIL Thursday10/17/2017 (AFTER THE COLONOSCOPY). Comments: NOT GIVEN Omeprazole (Omeprazole) 40 MG CAPSULE.DR 1 Capsule ORAL DAILY Qty = 30 Comments: Last Taken: 11/07/17 Time: 08:26 PROTONIX GIVEN IN HOSPITAL Start taking the following new medications: Rivaroxaban (Xarelto) 15 MG TABLET 1 Tablet ORAL TWICE DAILY Qty = 36 No Refills Comments: Last Taken: 11/08/17 Time: 08:15 AM Acetaminophen (Tylenol Extra Strength) 500 MG TABLET 1 Tablet ORAL THREE TIMES DAILY Qty = 10 No Refills Comments: Last Taken: 10/31/17 Time: 22:02 PM Copies To: Shabana PACE,Ralf Marsh
== END 2017-11-08 12:17 | disposition home health service (06) | DRG 330 ==
LOC: SDA 01:18 → 2NB 01:18 → ENRESERV 16:22 → ENTRNSPT 18:00 → EDTRNSPT 18:16 → EDTRNSPTSTS 18:16 → 2NB 18:39 → CMPTRNSPT 18:47 → 2NB 19:44 → ENPENDDIS 11-08 11:48 → 2NB 11-08 12:17
PROVIDERS: Physician Assistant; Physician Assistant Surgical
PROC: 0DTF4ZZ Resection of Right Large Intestine, Percutaneous Endoscopic Approach (ICD-10-PCS; principal; 2017-10-30)
PROC: 3E0T3BZ Introduction of Anesthetic Agent into Peripheral Nerves and Plexi, Percutaneous Approach (ICD-10-PCS; 2017-10-30)
DX: C18.2 Malignant neoplasm of ascending colon (principal); C77.2 Secondary and unspecified malignant neoplasm of intra-abdominal lymph nodes; I82.412 Acute embolism and thrombosis of left femoral vein; I82.432 Acute embolism and thrombosis of left popliteal vein; E11.40 Type 2 diabetes mellitus with diabetic neuropathy, unspecified; K56.7 Ileus, unspecified; I44.7 Left bundle-branch block, unspecified; E78.5 Hyperlipidemia, unspecified; D50.9 Iron deficiency anemia, unspecified; I10 Essential (primary) hypertension; I25.10 Atherosclerotic heart disease of native coronary artery without angina pectoris; N40.0 Benign prostatic hyperplasia without lower urinary tract symptoms; Z95.5 Presence of coronary angioplasty implant and graft; Z79.84 Long term (current) use of oral hypoglycemic drugs
CPT/HCPCS: 2NBP; 36415; 36592; 74021; 82436; 87086; 97110-GO; 97116-GO; 97161-GP; 97530-GO; C9290; C9399; J0131; J1644; J1815; J3490; J7042; J7060; J7120